=== PATIENT | female | born 1970 | race Caucasian/White ===

== ENCOUNTER 2017-09-11 08:29 | Inpatient (IN) | payer MEDICARE ==
[2017-09-11] MEDS ORDERED: SODIUM CHLORIDE 0.9% 1000 ML INFUS.BAG IV STA (09:05)
[2017-09-11] MEDS ORDERED: VANCOMYCIN 1 GM PREMIX - 1 GM/200 ML BAG IVPB ONE (09:07)
[2017-09-11] MEDS ORDERED: PIPERACILLIN/TAZOB 3.375 GM 3.375 GM in DEXTROSE 5%-WATER - 50 ML IVPB ONE ×2 (09:07→18:23)
[2017-09-11] MEDS ORDERED: ACETAMINOPHEN 325 MG TABLET (FP) PO ONE (09:25)
--- NOTE | 2017-09-11 09:25 | PDOC ---
Attending Attestation - HPI HPI: 09/11/17 09:27 The patient is a 47 year old female with a significant PMH of cocaine and heroin abuse, asthma, and diabetes who presents to the emergency department with abdominal pain beginning approximately today. She reports abdominal pain with associated nausea but denies vomiting. The patient states she has had a wound on her abdomen for a undefined period of time at her drug injection site, which has been draining yellowish fluid recently. The patient states she uses everyday. The patient also endorses fevers (T. max 102.9F at triage) and chills. She states her last BM was yesterday. The patient reports no known history of HIV or hepatitis. The patient denies chest pain or shortness of breath. Allergies: NKA PCP: None reported. - Physicial Exam PE: 09/11/17 09:27 GENERAL: Awake, alert, and fully oriented, in no acute distress HEAD: No signs of trauma EYES: PERRLA, EOMI, sclera anicteric, conjunctiva clear ENT: Auricles normal inspection, nares patent. Moist mucosa NECK: Normal ROM, supple, no JVD, or masses LUNGS: Breath sounds equal, clear to auscultation bilaterally. No wheezes, and no crackles HEART: Regular rate and rhythm, normal S1 and S2, no murmurs, rubs or gallops ABDOMEN: (+) 6x4 cm. abdominal wall abscess with central ulceration, fluctuant, erythematous, and exquisitely tender. Well-perfused. Rest of abdomen nontender. Soft, normoactive bowel sounds. No guarding, no rebound. No masses EXTREMITIES: Normal range of motion, no edema. No clubbing or cyanosis. No cords, erythema, or tenderness NEUROLOGICAL: Alert and oriented x 3. Moves all extremities. Face is symmetric. SKIN: See description of ulcer above. <Pancho Zaragoza - Last Filed: 09/11/17 09:45> - Resident Resident Name: Usman Doll - ED Attending Attestation I have performed the following: I have examined & evaluated the patient, The case was reviewed & discussed with the resident, I agree w/resident's findings & plan, Exceptions are as noted - Medical Decision Making 09/11/17 15:37 47 yo F h/o polysubstance abuse, daily cocaine use here with abd wall wound/. questoinable abscess, sepsis. differential sepsis, abscess vs cellulitis, vs. ulceration, intox. plan cbc lytes cultures, abx, ct/ a/p evaluate extent of the wound/ abcess. iv hydration. pt was a very poor historian, threatening to leave ama, was given ativan to deescalate when she becamse agitated. iv hydration 2 L, vanco / zosyn. bp normalized. cxr negative for infiltrate. HIV screen negative. ct no fluid collection. admitted to medicine for iv antiobiotics. <Em Blue - Last Filed: 09/11/17 15:40> Heart Score/ECG Review #1 ECG reviewed & interpreted by me at: 10:20 General ECG Interpretation: Sinus Rhythm, Normal Rate (89), Normal Intervals, No acute ischemic changes <Em Blue - Last Filed: 09/11/17 15:40>
[2017-09-11] MEDS ORDERED: ACETAMINOPHEN 1000 MG/100 ML VIAL (NON FORMULARY) IVPB ONE (09:28)
[2017-09-11 09:36] LABS: BASO % 0.2 % (0-2.0); EOS % 2.2 % (0-4.5); HEMATOCRIT 29.4 % (32.4-45.2); HEMOGLOBIN 9.9 GM/dL (10.7-15.3); LYMPH % 11.3 % (8-40); MCH 30.2 pg (25.7-33.7); MCHC 33.6 g/dl (32.0-36.0); MEAN CELL VOLUME 90.1 fl (80-96); MEAN PLT VOLUME 8.1 fl (7.5-11.1); MONO % 8.4 % (3.8-10.2); NEUT % 77.9 % (42.8-82.8); PLATELET COUNT 315 K/MM3 (134-434); RBC 3.27 M/mm3 (3.60-5.2); WHITE BLOOD COUNT 6.7 K/mm3 (4.0-10.0)
[2017-09-11] MEDS ORDERED: VANCOMYCIN 1 GRAM (PRE-DOCKED) 1,000 MG/250 ML BAG IVPB ONE (09:38)
[2017-09-11] MEDS ORDERED: ACETAMINOPHEN INJECTION 100 ML IVPB ONE (09:38)
[2017-09-11] MEDS ORDERED: PIPERACILLIN/TAZOB 3.375 GM 3.375 GM/50 ML BAG IVPB ONE ×2 (09:39→18:50)
[2017-09-11 09:52] LABS: INR 1.06 (0.82-1.09)
[2017-09-11 09:55] LABS: ACTIVATED PTT 31.6 SECONDS (26.9-34.4)
[2017-09-11 10:02] LABS: URINE APPEARANCE CLEAR; URINE BILIRUBIN NEGATIVE (<2.0 mg/dL); URINE COLOR STRAW; URINE GLUCOSE (UA) NEGATIVE (NEGATIVE); URINE KETONE NEGATIVE (NEGATIVE); URINE LEUK ESTERASE TRACE (NEGATIVE); URINE NITRITE NEGATIVE (NEGATIVE); URINE PROTEIN NEGATIVE (NEGATIVE); URINE UROBILINOGEN NEGATIVE mg/dL (0.2-1.0)
[2017-09-11 10:02] LABS: ANION GAP 7 (8-16); BLOOD UREA NITROGEN 7 mg/dL (7-18); CALCIUM 8.1 mg/dL (8.5-10.1); CHLORIDE 103 mmol/L (98-107); CO2 29 mmol/L (21-32); CREATININE 0.9 mg/dL (0.55-1.02); GLUCOSE,RANDOM 186 mg/dL (74-106); LIPASE 79 U/L (73-393); POTASSIUM 3.7 mmol/L (3.5-5.1); SGOT/AST 53 U/L (15-37); SGPT/ALT 31 U/L (12-78); SODIUM 139 mmol/L (136-145)
[2017-09-11 10:05] LABS: EPI CELLS RARE /HPF (FEW); URINE MUCUS RARE
[2017-09-11 10:06] LABS: ALK PHOS 63 U/L (45-117); BILIRUBIN,TOTAL 0.4 mg/dL (0.2-1.0); TOT PROT 7.9 g/dl (6.4-8.2)
--- NOTE | 2017-09-11 10:06 | PDOC ---
History of Present Illness - General Chief Complaint: Pain Stated Complaint: ABDOMINAL PAIN Time Seen by Provider: 09/11/17 09:00 History Source: Patient Exam Limitations: Clinical Condition - History of Present Illness Initial Comments: 09/11/17 09:57 Patient is a 47F with history of polysubstance abuse and asthma coming in today complaining of abdominal wound. Patient states that her wound is infected because she's been injecting cocaine into her abdomen. Endorses fevers, chills. Denies nausea, vomiting. Denies pain with urination. Last bowel movement was yesterday. Patient reports last use of drugs was yesterday and is every day user. Patient is unsure of when the wound first developed. Past History - Past Medical History Allergies/Adverse Reactions: Allergies Allergy/AdvReac Type Severity Reaction Status Date / Time No Known Allergies Allergy Verified 09/11/17 08:41 Home Medications: Ambulatory Orders Albuterol Sulfate Inhaler - [Ventolin HFA Inhaler -] 2 inh IH Q4H PRN #1 inh 08/04 metFORMIN HCL [Glucophage -] 500 mg PO BID #60 tablet 11/11/14 traZODone HCL [Desyrel -] 50 mg PO HS #30 tablet 12/05/14 Metformin HCl [Glucophage] 1,000 mg PO BID #60 tablet 12/09/14 Anemia: No Asthma: Yes (Pt is on MDI) Cancer: No Cardiac Disorders: No CVA: No COPD: No CHF: No Dementia: No Diabetes: Yes (Type II) GI Disorders: No Disorders: No HTN: No Hypercholesterolemia: No Kidney Stones: No Liver Disease: No Seizures: No Thyroid Disease: No - Reproductive History PID: No - Immunization History Immunization Up to Date: No - Suicide/Smoking/Psychosocial Hx Smoking Status: Yes Smoking History: Never smoked Have you smoked in the past 12 months: No Number of Cigarettes Smoked Daily: 1 'Breaking Loose' booklet given: 12/04/14 Hx Alcohol Use: No Drug/Substance Use Hx: Yes Substance Use Type: Cocaine, Opiates, Heroin Hx Substance Use Treatment: No Review of Systems - Review of Systems Comments:: 09/11/17 10:06 GENERAL/CONSTITUTIONAL: Positive for fever or chills. HEAD, EYES, EARS, NOSE AND THROAT: No change in vision. No sore throat. CARDIOVASCULAR: No chest pain or shortness of breath RESPIRATORY: No cough, wheezing, or hemoptysis. GASTROINTESTINAL: No nausea, vomiting, diarrhea or constipation. GENITOURINARY: No dysuria, frequency, or change in urination. MUSCULOSKELETAL: No joint or muscle swelling or pain. No neck or back pain. SKIN: No rash NEUROLOGIC: No headache, vertigo, loss of consciousness, or change in strength/ sensation. HEMATOLOGIC/LYMPHATIC: No anemia, easy bleeding, or history of blood clots. ALLERGIC/IMMUNOLOGIC: No hives or skin allergy. *Physical Exam - Vital Signs Last Vital Signs Temp Pulse Resp BP Pulse Ox 102.9 F H 119 H 20 94/55 97 09/11/17 08:37 09/11/17 08:37 09/11/17 08:37 09/11/17 08:37 09/11/17 08:37 - Physical Exam Comments: 09/11/17 10:08 GENERAL: Awake, alert, and fully oriented, disorganized speech HEAD: No signs of trauma, normocephalic, atraumatic EYES: PERRLA, EOMI, sclera anicteric, conjunctiva clear ENT: Auricles normal inspection, hearing grossly normal, nares patent, oropharynx clear without exudates. Moist mucosa NECK: Normal ROM, supple, no lymphadenopathy, JVD, or masses LUNGS: No distress, speaks full sentences, clear to auscultation bilaterally HEART: Tachycardic, normal S1 and S2, no murmurs, rubs or gallops, peripheral pulses normal and equal bilaterally. ABDOMEN: Diffusely tender, 3x3cm area of ulceration with surrounding erythema and induration heading superiorly EXTREMITIES: Normal inspection, Normal range of motion, no edema. No clubbing or cyanosis. NEUROLOGICAL: Cranial nerves II through XII grossly intact. Normal speech, normal gait, no focal sensorimotor deficits SKIN: Warm, Dry, multiple wounds in various stages of healing along venous access points ED Treatment Course - LABORATORY CBC & Chemistry Diagram: 09/11/17 09:32 09/11/17 09:32 - ADDITIONAL ORDERS Additional order review: Laboratory Results 09/11/17 09/11/17 09:32 09:23 Troponin I Cancelled Lipase Cancelled 09/11/17 09:32 RBC 3.27 L D MCV 90.1 MCHC 33.6 RDW 13.0 MPV 8.1 D Neutrophils % 77.9 Lymphocytes % 11.3 Monocytes % 8.4 Eosinophils % 2.2 Basophils % 0.2 - RADIOLOGY Radiology Studies Ordered: Category Date Time Status ABDOMEN & PELVIS CT WITH CONTR [CT] Stat CT Scan 09/11/17 09:08 Ordered CHEST X-RAY PORTABLE* [RAD] Stat Radiology 09/11/17 09:05 Completed - Medications Given in the ED: ED Medications Discontinued Medications Generic Name Dose Route Start Last Admin Trade Name Frejanet PRN Reason Stop Dose Admin Acetaminophen 650 mg 09/11/17 09:25 09/11/17 09:41 Tylenol - PO 09/11/17 09:26 Not Given ONCE ONE Acetaminophen 1,000 mg 09/11/17 09:28 09/11/17 09:40 Ofirmev Injection - IVPB 09/11/17 09:29 1,000 mg ONCE ONE Administration Piperacillin Sod/Tazobactam 50 mls @ 100 mls/hr 09/11/17 09:07 09/11/17 09:40 Sod 3.375 gm/ Dextrose IVPB 09/11/17 09:36 100 mls/hr ONCE ONE Administration Protocol Sodium Chloride 1,973 ml 09/11/17 09:05 09/11/17 09:40 Normal Saline - 30 ml/kg (1973 ml) 09/11/17 09:06 1,973 ml IV Administration ONCE STA Medical Decision Making - Medical Decision Making 09/11/17 10:34 Patient is 47F with history of polysubstance abuse and asthma here today complaining of abdominal wound. Vital signs show tachycardia and fever. BP shows MAP of 66. Septic workup initiated. Full 30cc/kg bolus of NS ordered. Two IVs placed. Vanc/zosyn initiated. Will do CT abd/pelvis. 09/11/17 10:37 Laboratory Tests 09/11/17 09/11/17 09/11/17 09:32 09:32 09:32 WBC 6.7 Hgb 9.9 L D Plt Count 315 INR 1.06 BUN 7 Creatinine 0.9 Lactic Acid Troponin I < 0.02 Serum , Qual Urine Nitrite Ur Leukocyte Esterase Urine WBC (Auto) Urine RBC (Auto) HIV 1&2 Antibody Screen HIV P24 Antigen 09/11/17 09/11/17 09/11/17 09:32 09:32 09:32 WBC Hgb Plt Count INR BUN Creatinine Lactic Acid 2.3 H* Troponin I Serum , Qual Negative Urine Nitrite Ur Leukocyte Esterase Urine WBC (Auto) Urine RBC (Auto) HIV 1&2 Antibody Screen Negative HIV P24 Antigen Negative 09/11/17 09:48 WBC Hgb Plt Count INR BUN Creatinine Lactic Acid Troponin I Serum , Qual Urine Nitrite Negative Ur Leukocyte Esterase Trace Urine WBC (Auto) 1 Urine RBC (Auto) <1 HIV 1&2 Antibody Screen HIV P24 Antigen CBC shows anemia and no leukocytosis. INR, CMP reassuring. Lactate elevated to 2.3. UA clear, Upreg negative. HIV negative. Pending utox and CT abd/pelvis. Patient reassessed, HR now 89 with MAP of 81. Patient not in septic shock, is in severe sepsis. Second lactate pending. 09/11/17 11:42 BP reassessed, 93/71 with MAP of 80. No tachycardia. Fluids still running in. ABx given. 09/11/17 11:49 Patient becoming more agitated and stating that she wants to go home. Patient states that she doesn't care if she dies and has no plan to leave. Given 1mg ativan. Vital signs remain stable. 09/11/17 11:52 CT scan shows extensive inflammation in anterior abdominal wall but no discrete fluid collection. Hospitalist paged for admission. *DC/Admit/Observation/Transfer Diagnosis at time of Disposition: Cellulitis - Discharge Dispostion Condition at time of disposition: Stable Decision to Admit order: Yes - Referrals - Patient Instructions - Post Discharge Activity
[2017-09-11 10:13] LABS: METHADONE, UR NEGATIVE ng/ml (CUTOFF=300); OPIATES, URI NEGATIVE ng/ml (CUTOFF=300); PHENCYCLIDINE,URINE NEGATIVE ng/ml (CUTOFF=25); URINE AMPHETAMINES NEGATIVE ng/ml (CUTOFF=500); URINE BARBITURATES NEGATIVE ng/ml (CUTOFF=200); URINE BENZODIAZEPINES NEGATIVE ng/ml (CUTOFF=200)
[2017-09-11 10:51] LABS: COCAINE, UR POSITIVE ng/ml (CUTOFF=300)
--- NOTE | 2017-09-11 13:45 | HP ---
CHIEF COMPLAINT: PCP: HISTORY OF PRESENT ILLNESS: The patient is a 44 year old female with a PMH of cocaine and heroin abuse, asthma and DM that presented today complaining of abdominal pain. When I saw the patient she was lethargic because of Ativan that was given to her for agitation in emergency room. She was not able to answer most of my questions and kept falling asleep. History is mainly taken from medical records. The patient presented today complaining of abdominal pain, nausea and fever 103 F. She also added that she has abdominal abscess in her abdomen where she injects cocaine. The patient doesn't know how long she has the ulcer on her abdomen. She uses cocaine everyday. She has normal bowel movements, last one yesterday. She also added that she doesn't take any medications and doesn't have PCP. ER course was notable for: (1)CBC CMP (2)CT abdomen (3)CXR, UA, U tox, HIV screen neg PAST MEDICAL HISTORY: as above PAST SURGICAL HISTORY: N/A Social History: Smoking:denies Alcohol:denies Drugs: cocaine Family History: N/A Allergies No Known Allergies Allergy (Verified 09/11/17 08:41) HOME MEDICATIONS: Home Medications Medication Instructions Recorded Albuterol Sulfate Inhaler - 2 inh IH Q4H PRN #1 inh 12/08/11 [Ventolin HFA Inhaler -] metFORMIN HCL [Glucophage -] 500 mg PO BID #60 tablet 11/11/14 traZODone HCL [Desyrel -] 50 mg PO HS #30 tablet 12/05/14 Metformin HCl [Glucophage] 1,000 mg PO BID #60 tablet 12/09/14 REVIEW OF SYSTEMS: The patient is doesn't have any complaints. PHYSICAL EXAMINATION Vital Signs - 24 hr 09/11/17 09/11/17 09/11/17 08:37 10:38 12:30 Temperature 102.9 F H 98.5 F Pulse Rate 119 H Pulse Rate [ 86 77 Left Apical] Respiratory 20 16 18 Rate Blood Pressure 94/55 Blood Pressure 85/53 112/84 [Left Arm] O2 Sat by Pulse 97 95 95 Oximetry (%) GENERAL: Awake, alert, and fully oriented, in no acute distress. HEAD: Normal with no signs of trauma. EYES: Pupils equal, round and reactive to light, EOMI. EARS, NOSE, THROAT: oropharynx clear without exudates. Moist mucous membranes. NECK: Normal range of motion, supple without lymphadenopathy, JVD, or masses. LUNGS: Clear to auscultation bilaterally. No wheezes, and no crackles. HEART: Regular rate and rhythm, normal S1 and S2 without murmur, rub or gallop. ABDOMEN: Soft, nontender, not distended, normoactive bowel sounds, no guarding, no rebound, warm to touch on left side, redness, 2 cm open wound, stage 3 ulcer located in LUQ draining small amount of clear/yellow fluid, edema present, another one below around 0.5 cm, open not draining fluid, no fluctuation. MUSCULOSKELETAL: Normal range of motion at all joints. No bony deformities or tenderness. UPPER EXTREMITIES: No peripheral edema. LOWER EXTREMITIES: No peripheral edema. NEUROLOGICAL: Lethargic, answering some questions, poor eye contact Laboratory Results - last 24 hr 09/11/17 09/11/17 09/11/17 09:23 09:23 09:32 WBC 6.7 RBC 3.27 L D Hgb 9.9 L D Hct 29.4 L D MCV 90.1 MCH 30.2 MCHC 33.6 RDW 13.0 Plt Count 315 MPV 8.1 D Neutrophils % 77.9 Lymphocytes % 11.3 Monocytes % 8.4 Eosinophils % 2.2 Basophils % 0.2 PT with INR INR PTT (Actin FS) Sodium Potassium Chloride Carbon Dioxide Anion Gap BUN Creatinine Creat Clearance w eGFR Random Glucose Lactic Acid Calcium Total Bilirubin AST ALT Alkaline Phosphatase Troponin I Cancelled Total Protein Albumin Lipase Serum , Qual Urine Color Urine Appearance Urine pH Ur Specific [place] Urine Protein Urine Glucose (UA) Urine Ketones Urine Blood Urine Nitrite Urine Bilirubin Urine Urobilinogen Ur Leukocyte Esterase Urine WBC (Auto) Urine RBC (Auto) Ur Epithelial Cells Urine Mucus Opiates Screen Methadone Screen Barbiturate Screen Phencyclidine Screen Ur Amphetamines Screen MDMA (Ecstasy) Screen Benzodiazepines Screen Cocaine Screen U Marijuana (THC) Screen HIV 1&2 Antibody Screen HIV P24 Antigen Blood Type A POSITIVE Antibody Screen Negative 09/11/17 09/11/17 09/11/17 09:32 09:32 09:32 WBC RBC Hgb Hct MCV MCH MCHC RDW Plt Count MPV Neutrophils % Lymphocytes % Monocytes % Eosinophils % Basophils % PT with INR 12.00 INR 1.06 PTT (Actin FS) 31.6 Sodium 139 Potassium 3.7 Chloride 103 Carbon Dioxide 29 Anion Gap 7 L BUN 7 Creatinine 0.9 Creat Clearance w eGFR > 60 Random Glucose 186 H Lactic Acid 2.3 H* Calcium 8.1 L Total Bilirubin 0.4 AST 53 H ALT 31 Alkaline Phosphatase 63 Troponin I < 0.02 Total Protein 7.9 Albumin 3.0 L Lipase 79 Serum , Qual Urine Color Urine Appearance Urine pH Ur Specific [place] Urine Protein Urine Glucose (UA) Urine Ketones Urine Blood Urine Nitrite Urine Bilirubin Urine Urobilinogen Ur Leukocyte Esterase Urine WBC (Auto) Urine RBC (Auto) Ur Epithelial Cells Urine Mucus Opiates Screen Methadone Screen Barbiturate Screen Phencyclidine Screen Ur Amphetamines Screen MDMA (Ecstasy) Screen Benzodiazepines Screen Cocaine Screen U Marijuana (THC) Screen HIV 1&2 Antibody Screen HIV P24 Antigen Blood Type Antibody Screen 09/11/17 09/11/17 09/11/17 09:32 09:32 09:32 WBC RBC Hgb Hct MCV MCH MCHC RDW Plt Count MPV Neutrophils % Lymphocytes % Monocytes % Eosinophils % Basophils % PT with INR INR PTT (Actin FS) Sodium Potassium Chloride Carbon Dioxide Anion Gap BUN Creatinine Creat Clearance w eGFR Random Glucose Lactic Acid Calcium Total Bilirubin AST ALT Alkaline Phosphatase Troponin I Total Protein Albumin Lipase Cancelled Serum , Qual Negative Urine Color Urine Appearance Urine pH Ur Specific [place] Urine Protein Urine Glucose (UA) Urine Ketones Urine Blood Urine Nitrite Urine Bilirubin Urine Urobilinogen Ur Leukocyte Esterase Urine WBC (Auto) Urine RBC (Auto) Ur Epithelial Cells Urine Mucus Opiates Screen Methadone Screen Barbiturate Screen Phencyclidine Screen Ur Amphetamines Screen MDMA (Ecstasy) Screen Benzodiazepines Screen Cocaine Screen U Marijuana (THC) Screen HIV 1&2 Antibody Screen Negative HIV P24 Antigen Negative Blood Type Antibody Screen 09/11/17 09/11/17 09/11/17 09:48 09:53 12:15 WBC RBC Hgb Hct MCV MCH MCHC RDW Plt Count MPV Neutrophils % Lymphocytes % Monocytes % Eosinophils % Basophils % PT with INR INR PTT (Actin FS) Sodium Potassium Chloride Carbon Dioxide Anion Gap BUN Creatinine Creat Clearance w eGFR Random Glucose Lactic Acid 0.8 Calcium Total Bilirubin AST ALT Alkaline Phosphatase Troponin I Total Protein Albumin Lipase Serum , Qual Urine Color Straw Urine Appearance Clear Urine pH 5.0 Ur Specific [place] 1.002 Urine Protein Negative Urine Glucose (UA) Negative Urine Ketones Negative Urine Blood Negative Urine Nitrite Negative Urine Bilirubin Negative Urine Urobilinogen Negative Ur Leukocyte Esterase Trace Urine WBC (Auto) 1 Urine RBC (Auto) <1 Ur Epithelial Cells Rare Urine Mucus Rare Opiates Screen Negative Methadone Screen Negative Barbiturate Screen Negative Phencyclidine Screen Negative Ur Amphetamines Screen Negative MDMA (Ecstasy) Screen Negative Benzodiazepines Screen Negative Cocaine Screen Positive U Marijuana (THC) Screen Negative HIV 1&2 Antibody Screen HIV P24 Antigen Blood Type Antibody Screen CT abdomen;In the soft tissues of the anterior lateral abdomen extending from the left upper quadrant to the left lower quadrant at the levels of the surgical wound site there is skin thickening, edematous changes with interfascial fluid but no discrete or drainable fluid collection. These findings suggestive of extensive cellulitis. With subcutaneous edema and inflammatory change ASSESSMENT/PLAN: The patient is a 44 year old female with a PMH of cocaine and heroin abuse, asthma and DM that presented today complaining of abdominal pain. She is admitted for cellulitis. Sepsis due to cellulitis and abdominal wound: -the patient has a history of wound that is present of unknown time, possibly due to IV drug injections -she presented today with fever 102.9 F, elevated LA to 2.3, tachycardia -CT abdomen doesnt reveal abscess, no fluid collection that can be drained, suggestive of cellulitis -Vanco and Zosyn were given in ED, will continue the dsame antibiotics, cont. NS at 100 cc/hr -ID consulted, will follow up recommendations -wound culture not recommended ny surgery, likely not useful -blood cultures ordered -Surgery consulted Dr Velasco AMS: -the patient has a history of polysubstance abuse and on admission was agitated. She was given Ativan 1 mg. -we will monitor her vital signs closely on telemetry Asthma: -no wheezing -no treatment needed DM: -will order BGMs ACHS and ISS ACHS -will check HgA1C History of psych disorder and polysubstance abuse: -Psychiatry consulted -recommended to observe for eloping -given Ativan for agitation in ED -Utox pos for cocaine Anemia: -Hg 9.9 -will f/u iron studies and FOBT DVT PPX: Heparin sq F/E/N: NS/no changes/Diabetic/NPO after midnight for possible debridement on Tuesday Dispo: tele Problem List - Problem (1) Cellulitis Code(s): L03.90 - CELLULITIS, UNSPECIFIED (2) Asthma Code(s): J45.909 - UNSPECIFIED ASTHMA, UNCOMPLICATED (3) Cocaine abuse Code(s): F14.10 - COCAINE ABUSE, UNCOMPLICATED (4) Cocaine dependence Code(s): F14.20 - COCAINE DEPENDENCE, UNCOMPLICATED (5) Diabetes mellitus Code(s): E11.9 - TYPE 2 DIABETES MELLITUS WITHOUT COMPLICATIONS (6) Diabetes mellitus type 2 in obese Code(s): E11.9 - TYPE 2 DIABETES MELLITUS WITHOUT COMPLICATIONS; E66.9 - OBESITY , UNSPECIFIED (7) Drug-induced mood disorder Code(s): F19.94 - OTH PSYCHOACTIVE SUBSTANCE USE, UNSP W MOOD DISORDER (8) Heroin dependence Code(s): F11.20 - OPIOID DEPENDENCE, UNCOMPLICATED Visit type - Emergency Visit Emergency Visit: Yes ED Registration Date: 09/11/17 Care time: The patient presented to the Emergency Department on the above date and was hospitalized for further evaluation of their emergent condition. - New Patient This patient is new to me today: Yes Date on this admission: 09/11/17 - Critical Care Critical Care patient: No Hospitalist Screening - Colonoscopy Questionnaire Colonoscopy Questionnaire: Colonoscopy Questionnaire - Patient: 50 - 75 years old and never had a screening colonoscopy: Unknown History of colon or rectal polyps, or CA: Unknown History of IBD, Crohn's disease or UC: Unknown History of abdominal radiation therapy as a child: Unknown - Relative: 1 with colon or rectal CA, or polyps at age 60 or younger: Unknown Colon or rectal CA diagnosed at age 45 or younger: Unknown Multiple relatives with colon or rectal CA: Unknown - Outcome: Screening Result: Negative Screen
[2017-09-11] MEDS: HEPARIN NA (PORCINE) 5,000 UNITS/ML 1ML VIAL SQ SCH ×2 (14:08→23:03)
[2017-09-11] MEDS: SODIUM CHLORIDE 1,000 ML IV SCH (14:49)
--- NOTE | 2017-09-11 14:51 | PN ---
Teaching Attending Note Name of Resident: Kiera To ATTENDING PHYSICIAN STATEMENT I saw and evaluated the patient. I reviewed the resident's note and discussed the case with the resident. I agree with the resident's findings and plan as documented. SUBJECTIVE: OBJECTIVE: ASSESSMENT AND PLAN: 47 y/o female patient with a history of polysubstance abuse presented to the hospital after the patient noticed she has some purulent material draining for her left side of the abdomen. patient stated that she injected herself with some cocaine 2 to 3 days ago. she usually does that from time to time, she also has another smaller size bellow about 0.5cm. patient does not want to engage in a conversation and was trying to avoid the questions, she does not look the doctor in the eye. she was more fixated on eating her cake. she is a poor historian and according to the ER resident she was agitated and was going to elope but she was given 1 mg of lorazepam to calm down. During the interview the patient fell asleep. she stated she does use alcohol but does not recall when she used it last, she denied using heroin, stated only cocaine, she does not recall when was her last HIV testing done. plan: admit the patient start on broad spectrum antibiotics - Vancomycin and pipercillin/tazobactam ID consult surgery consult for wound debridement elopement precautions psychiatric evaluation for the patient HIV counseling and possible testing when the patient is more alert and oriented not on lorazepam blood culture if the patient is febrile wound culture IVF repeat Lactic acid tele for AMS
--- NOTE | 2017-09-11 15:25 | CONSULT ---
Consult Consult Specialty:: General Surgery Referred by:: Connie To Reason for Consultation:: LUQ abdominal wall cellulitis, abscess? - History of Present Illness Chief Complaint: LUQ abdominal wall drainage and pain History of Present Illness: 47yo diabetic F, daily cocaine user, presented to ER with drainage from ulcer on LUQ abdominal wall for at least a couple of days. She had injected cocaine into her abdominal wall, cannot say exactly how long ago, and developed a sore that progressed and started to drain. In the ER, she was febrile to 102.9, tachycardic 119, with BP 94/55, wbc 6.7, glucose 186, normal renal function. Lactate dropped from 2.3 to 0.8 with hydration and HR improved. BP has remained 90s/60s-70. CT was done showing subcutaneous edema and cellulitis with interfascial fluid but no drainable fluid collection under the ulcer. She was reportedly agitated and wanting to leave the hospital, was given food and a small dose of Ativan. She calmed down and was admitted to the hospitalist service. She has gotten Vanco and Zosyn. Surgery was consulted to evaluate for possible debridement. On first encounter with patient, she is sleepy and did not respond at first to questions. She is arousable enough to then answer simple questions, but at times is unintelligible, and tends to fall asleep again in the middle of her sentences. She had bread with crumbs and cold cut on the stretcher next to her, but fell asleep holding a piece, which fell to the floor. Per the ER, she was brought [employer] by a visitor earlier. She is a poor historian, but admits to daily cocaine use and 1 cigarette a day. Denies alcohol use or other illicit substances. She states she got the sore from a needle and confirmed injecting cocaine there, but doesn't remember when. She cannot stay awake for a conversation. Repeat vitals were 99/68, pulse 63, sat 94% RA. - History Source History Provided By: Patient, Medical Record Limitations to Obtaining History: Other (poor historian, partly sedated) - Past Medical History ...LMP: 10/14/14 Psych: Yes: Addictions (cocaine) Endocrine: Yes: Diabetes Mellitus - Past Surgical History Additional Surgical History: unknown - pt cannot answer - Alcohol/Substance Use Hx Alcohol Use: No (denies) History of Substance Use: reports: Cocaine (daily use, injects, cannot give details) - Smoking History Smoking history: Current every day smoker Have you smoked in the past 12 months: Yes Aproximately how many cigarettes per day: 1 Home Medications - Allergies Allergies/Adverse Reactions: Allergies Allergy/AdvReac Type Severity Reaction Status Date / Time No Known Allergies Allergy Verified 09/11/17 08:41 - Home Medications Home Medications: Ambulatory Orders Albuterol Sulfate Inhaler - [Ventolin HFA Inhaler -] 2 inh IH Q4H PRN #1 inh 08/04 metFORMIN HCL [Glucophage -] 500 mg PO BID #60 tablet 11/11/14 traZODone HCL [Desyrel -] 50 mg PO HS #30 tablet 12/05/14 Metformin HCl [Glucophage] 1,000 mg PO BID #60 tablet 12/09/14 Home Medications (free text): pt does not answer when asked about home meds - unclear if taking Family Disease History - Family Disease History Family History: Unable to Obtain (from chart, not patient) Family Disease History: Diabetes: Father, CA: Father, Mother () Review of Systems Unable to obtain ROS, reason: patient cannot stay awake - Review of Systems Gastrointestinal: denies: Nausea, Vomiting Integumentary: reports: Lesions, Wound (LUQ, draining, with hpi) Physical Exam Vital Signs: Vital Signs Temperature 98.5 F 09/11/17 12:30 Pulse Rate 77 09/11/17 12:30 Respiratory Rate 18 09/11/17 12:30 Blood Pressure 112/84 09/11/17 12:30 O2 Sat by Pulse Oximetry (%) 95 09/11/17 12:30 Constitutional: Yes: Well Nourished, No Distress, Calm, Other (lethargic, sleepy ) Eyes: Yes: Conjunctiva Clear, EOM Intact HENT: Yes: Atraumatic, Normocephalic Neck: Yes: Supple, Trachea Midline Cardiovascular: Yes: Regular Rate and Rhythm. No: Murmur Respiratory: Yes: Regular, CTA Bilaterally Gastrointestinal: Yes: Normal Bowel Sounds, Soft, Tenderness (at LUQ lesion only ), Other (ulcerated wound on LUQ abd wall, very small superficial ulcer inferior to it). No: Distention ...Rectal Exam: Yes: Deferred Extremities: Yes: Other (multiple small healing scabs/scars from previous injection sites, including bilateral antecubitals). No: Cool, Cyanosis Edema: No Peripheral Pulses WNL: Yes Integumentary: Yes: Other (LUQ abd wall ulcers) Wound/Incision: Yes: Open to air, Draining (pale mensah exudate, nothing expressible), Other (LUQ raised, cratered ulcer ~3x2cm x ~1cm deep, pink granulating base with mensah/purulent appearing exudate but no expressible drainage , inferior aspect with patch of necrotic dark adherent slough; indurated locally and just surrounding, and tender -- dressed with 2x2 then 4x4 gauze and tape; very small superficial ulcer inferiorly, ~1 x 0.5cm with pale yellow base , covered with band-aid -- removed, dressed with gauze and tape (no drainage, no focal underlying skin changes)). No: Reddened, Bleeding Neurological: Yes: Lethargy. No: Alert (arousable but falls right back to sleep ), Unresponsive (answers some questions when awake enough to do so) Psychiatric: No: Alert (sleepy), Agitated Labs: CBC, BMP 09/11/17 09:32 09/11/17 09:32 CMP Sodium 139 mmol/L (136-145) 09/11/17 09:32 Potassium 3.7 mmol/L (3.5-5.1) 09/11/17 09:32 Chloride 103 mmol/L (98-107) 09/11/17 09:32 Carbon Dioxide 29 mmol/L (21-32) 09/11/17 09:32 Anion Gap 7 (8-16) L 09/11/17 09:32 BUN 7 mg/dL (7-18) 09/11/17 09:32 Creatinine 0.9 mg/dL (0.55-1.02) 09/11/17 09:32 Creat Clearance w eGFR > 60 (>60) 09/11/17 09:32 Random Glucose 186 mg/dL (74-106) H 09/11/17 09:32 Lactic Acid 0.8 mmol/L (0.0-2.0) 09/11/17 12:15 Calcium 8.1 mg/dL (8.5-10.1) L 09/11/17 09:32 Total Bilirubin 0.4 mg/dL (0.2-1.0) 09/11/17 09:32 AST 53 U/L (15-37) H 09/11/17 09:32 ALT 31 U/L (12-78) 09/11/17 09:32 Alkaline Phosphatase 63 U/L (45-117) 09/11/17 09:32 Troponin I < 0.02 ng/ml (0.00-0.05) 09/11/17 09:32 Total Protein 7.9 g/dl (6.4-8.2) 09/11/17 09:32 Albumin 3.0 g/dl (3.4-5.0) L 09/11/17 09:32 Lipase 79 U/L (73-393) 09/11/17 09:32 Serum , Qual Negative 09/11/17 09:32 INR, PTT INR 1.06 (0.82-1.09) 09/11/17 09:32 Urine Test Results Urine Color Straw 09/11/17 09:48 Urine Appearance Clear 09/11/17 09:48 Urine pH 5.0 (5.0-8.0) 09/11/17 09:48 Ur Specific [place] 1.002 (1.001-1.035) 09/11/17 09:48 Urine Protein Negative (NEGATIVE) 09/11/17 09:48 Urine Glucose (UA) Negative (NEGATIVE) 09/11/17 09:48 Urine Ketones Negative (NEGATIVE) 09/11/17 09:48 Urine Blood Negative (NEGATIVE) 09/11/17 09:48 Urine Nitrite Negative (NEGATIVE) 09/11/17 09:48 Urine Bilirubin Negative (<2.0 mg/dL) 09/11/17 09:48 Ur Leukocyte Esterase Trace (NEGATIVE) 09/11/17 09:48 Ur Epithelial Cells Rare /HPF (FEW) 09/11/17 09:48 Urine Mucus Rare 09/11/17 09:48 U Tox + for cocaine only Imaging - Results Cat Scan: Report Reviewed, Image Reviewed (images personally reviewed, ulcer at LUQ abd wall with underlying edema and cellulitic changes, no clear fluid collection) Problem List - Problems (1) Ulcer of abdomen wall with fat layer exposed Assessment/Plan: LUQ abd wall ulceration secondary to cocaine injection with significant cellulitis underlying in diabetic patient agree with blood cultures and broad-spectrum IV antibiotics with MRSA coverage, ID consulted would not culture wound surface - will be contaminated dressed with gauze and tape for now would likely recommend daily Santyl (collagenase) dressings with gauze pt currently too sleepy to fully interact with or consent to anything will reevaluate tomorrow for need for local debridement vs dressings only admitted to hospitalist service Code(s): L98.492 - NON-PRS CHRONIC ULCER OF SKIN OF SITES W FAT LAYER EXPOSED (2) Cellulitis of abdominal wall Assessment/Plan: continue antibiotics - see above Code(s): L03.311 - CELLULITIS OF ABDOMINAL WALL (3) Diabetes mellitus with skin complication, without long-term current use of insulin Assessment/Plan: FS with SSI coverage, unclear if patient is taking home medication or not hold metformin [address] done with IV contrast Code(s): E11.628 - TYPE 2 DIABETES MELLITUS WITH OTHER SKIN COMPLICATIONS Qualifiers: Diabetes mellitus type: type 2 Diabetes mellitus complication detail: with other skin complication Qualified Code(s): E11.628 - Type 2 diabetes mellitus with other skin complications (4) Cocaine abuse with intoxication with complication Assessment/Plan: psych/detox to see avoid narcotics as able Code(s): F14.129 - COCAINE ABUSE WITH INTOXICATION, UNSPECIFIED
[2017-09-11] MEDS ORDERED: ACETAMINOPHEN 325 MG TABLET (FP) PO PRN (18:21)
[2017-09-11] MEDS ORDERED: VANCOMYCIN 1,000 MG in DEXTROSE 5%-WATER - 250 ML IVPB ONE (22:00)
[2017-09-12] MEDS ORDERED: DEXTROSE 5%-WATER - 50 ML IVPB ONE (03:14)
[2017-09-12] MEDS ORDERED: PIPERACILLIN/TAZOBACTAM 3.375 GM VIAL IVPB ONE (03:14)
[2017-09-12] MEDS: PIPERACILLIN/TAZOB 3.375 GM 3.375 GM in DEXTROSE 5%-WATER - 50 ML IVPB SCH ×2 (03:30→10:00)
[2017-09-12 03:38] VITALS: BMI 25.4
[2017-09-12] MEDS: SODIUM CHLORIDE 1,000 ML IV SCH ×2 (06:27→15:00)
[2017-09-12 07:11] LABS: CHLORIDE 109 mmol/L (98-107); POTASSIUM 3.7 mmol/L (3.5-5.1); SODIUM 142 mmol/L (136-145)
[2017-09-12 07:21] LABS: ALBUMIN 2.5 g/dl (3.4-5.0); ALK PHOS 51 U/L (45-117); ANION GAP 5 (8-16); BILIRUBIN,TOTAL 0.5 mg/dL (0.2-1.0); BLOOD UREA NITROGEN 8 mg/dL (7-18); CALCIUM 7.8 mg/dL (8.5-10.1); CO2 28 mmol/L (21-32); CREATININE 0.6 mg/dL (0.55-1.02); GLUCOSE,RANDOM 83 mg/dL (74-106); SGOT/AST 41 U/L (15-37); SGPT/ALT 26 U/L (12-78); TOT PROT 6.9 g/dl (6.4-8.2)
[2017-09-12 07:22] LABS: BASO % 0.5 % (0-2.0); HEMATOCRIT 30.3 % (32.4-45.2); LYMPH % 47.2 % (8-40); MCH 30.2 pg (25.7-33.7); MCHC 33.1 g/dl (32.0-36.0); MEAN CELL VOLUME 91.3 fl (80-96); MEAN PLT VOLUME 8.6 fl (7.5-11.1); NEUT % 33.3 % (42.8-82.8); PLATELET COUNT 281 K/MM3 (134-434); RBC 3.32 M/mm3 (3.60-5.2); RDW 13.4 % (11.6-15.6); WHITE BLOOD COUNT 4.8 K/mm3 (4.0-10.0)
--- NOTE | 2017-09-12 08:44 | CON.ID ---
Consult Consult Specialty:: infectious disease Referred by:: hospitalist Reason for Consultation:: fever - History of Present Illness Chief Complaint: fever, abdominal pain History of Present Illness: POOR HISTORIAN active IVDU not willling to talk to me history from chart abdominal wound of unclear duration, to me denies injecting there- to the ED staff, stated this was injection site fevers- unclear how long is hungry and wants to eat utox +cocaine ct scan abd/pelvis skin thickening LUQ- no abscess noted cultures sent started on vancomycin and zosyn - History Source History Provided By: Medical Record Limitations to Obtaining History: Uncooperative - Past Medical History ...LMP: 10/14/14 ...: No Psych: Yes: Addictions (cocaine) Endocrine: Yes: Diabetes Mellitus - Past Surgical History Additional Surgical History: unknown - pt cannot answer - Alcohol/Substance Use Hx Alcohol Use: No (denies) History of Substance Use: reports: Cocaine (daily use, injects, cannot give details) - Smoking History Smoking history: Current every day smoker Have you smoked in the past 12 months: Yes Aproximately how many cigarettes per day: 1 - Social History Usual Living Arrangement: Alone ADL: Independent Home Medications - Allergies Allergies/Adverse Reactions: Allergies Allergy/AdvReac Type Severity Reaction Status Date / Time No Known Allergies Allergy Verified 09/11/17 08:41 - Home Medications Home Medications: Ambulatory Orders Albuterol Sulfate Inhaler - [Ventolin HFA Inhaler -] 2 inh IH Q4H PRN #1 inh 08/04 metFORMIN HCL [Glucophage -] 500 mg PO BID #60 tablet 11/11/14 traZODone HCL [Desyrel -] 50 mg PO HS #30 tablet 12/05/14 Metformin HCl [Glucophage] 1,000 mg PO BID #60 tablet 12/09/14 Family Disease History - Family Disease History Family Disease History: Diabetes: Father, CA: Father, Mother () Review of Systems Unable to obtain ROS, reason: uncooperative - Review of Systems Constitutional: reports: Fever Physical Exam Vital Signs: Vital Signs Temperature 97.9 F 09/12/17 05:15 Pulse Rate 72 09/12/17 05:15 Respiratory Rate 20 09/12/17 05:15 Blood Pressure 110/77 09/12/17 05:15 O2 Sat by Pulse Oximetry (%) 95 09/11/17 21:00 Constitutional: Yes: Well Nourished, No Distress, Calm, Other (sleeping, wakes up to say she is hungry and wants to eat) Eyes: Yes: Conjunctiva Clear HENT: Yes: WNL, Atraumatic, Normocephalic. No: Thrush Neck: Yes: WNL, Supple Cardiovascular: Yes: Regular Rate and Rhythm, Murmur (2/6 edwin) Respiratory: Yes: Regular, CTA Bilaterally Gastrointestinal: Yes: Normal Bowel Sounds, Soft, Other (3 by 2 cm ulcer with serous drainage, no fluctuance small .5 cm ulcer below the larger one) ...Rectal Exam: Yes: Deferred Extremities: Yes: WNL Edema: No Integumentary: Yes: Other (multiple scars both arms) Labs: CBC, BMP 09/12/17 06:25 09/12/17 06:25 blood cultures/wound culture pending Imaging - Results Chest X-ray: Report Reviewed, Image Reviewed Cat Scan: Report Reviewed Problem List - Problems (1) Fever Code(s): R50.9 - FEVER, UNSPECIFIED (2) Cellulitis of abdominal wall Code(s): L03.311 - CELLULITIS OF ABDOMINAL WALL (3) Diabetes mellitus with skin complication, without long-term current use of insulin Code(s): E11.628 - TYPE 2 DIABETES MELLITUS WITH OTHER SKIN COMPLICATIONS Qualifiers: Diabetes mellitus type: type 2 Diabetes mellitus complication detail: with other skin complication Qualified Code(s): E11.628 - Type 2 diabetes mellitus with other skin complications (4) Substance use disorder Code(s): F19.90 - OTHER PSYCHOACTIVE SUBSTANCE USE, UNSPECIFIED, UNCOMPLICATED Assessment/Plan fever soft tissue infection diabetes IVDU +hep c ab cultures as ordered vancomycin/zosyn to continue concern for endocarditis f/u blood cultures HIV negative further reccd to follow should have hep c f/u as outpt
[2017-09-12] MEDS: HEPARIN NA (PORCINE) 5,000 UNITS/ML 1ML VIAL SQ SCH ×2 (10:00→21:33)
[2017-09-12] MEDS ORDERED: PIPERACILLIN/TAZOBACTAM 4.5 GM VIAL IVPB ONE ×2 (10:40→17:23)
[2017-09-12] MEDS ORDERED: DEXTROSE 5%-WATER 100 ML IVPB ONE ×2 (10:40→17:23)
[2017-09-12] MEDS: VANCOMYCIN 1 GM PREMIX - 1 GM/200 ML BAG IVPB SCH ×2 (10:42→21:30)
--- NOTE | 2017-09-12 10:53 | CON.PSY ---
Psychiatry Consult Chief Complaint: I( am ok, have no problems. I have stomach pain and I am hungry. Symptoms: reports: Irritability, Inability to Control Temper - Previous Psychiatric Treatment Outpatient: None Inpatient: None - Previous Substance Abuse Treatment Outpatient: None Inpatient: None - Reason for Previous Treatment Reason for Previous Treatment: Drug Abuse, Alcohol Abuse - Current Medications Current Medications: Active Medications Acetaminophen (Tylenol -) 650 mg PO Q6H PRN PRN Reason: FEVER Heparin Sodium (Porcine) (Heparin -) 5,000 unit SQ BID [facility] Last Admin: 09/11/17 23:03 Dose: Not Given Sodium Chloride (Normal Saline -) 1,000 mls @ 100 mls/hr IV ASDIR [facility] Stop: 09/13/17 00:29 Last Admin: 09/12/17 06:27 Dose: 100 mls/hr Vancomycin HCl (Vancomycin 1 Gm Premix -) 1 gm in 200 mls @ 133.333 mls/hr IVPB BID [facility] PRN Reason: Protocol Last Admin: 09/12/17 10:42 Dose: 133.333 mls/hr Piperacillin Sod/Tazobactam (Sod 4.5 gm/ Dextrose) 100 mls @ 200 mls/hr IVPB Q8H-IV [facility] PRN Reason: Protocol - Allergies Allergies: Allergies Allergy/AdvReac Type Severity Reaction Status Date / Time No Known Allergies Allergy Verified 09/11/17 08:41 - Current Living Status Usual Living Arrangement: Alone - Current Mental Status Evaluation Appearance: Disheveled Attitude: Uncooperative - Affect Affect: Constrictive - Mood Mood: Angry - Speech/Language Expressive: Coherent - Psychomotor Activity Psychomotor Activity: Normal - Thought Process Thought Process: Intact - Thought Content Hallucinations: Absent Delusions: Absent - Self Perception Self Perception: No Impairment - Cognition Attention: Alert Orientation: Time Memory, Immediate Recall: Intact Memory, Short Term: 2/3 Memory, Remote with Promptin/3 - Concentration Serial Sevens Intact: No Simple Calculations Intact: No - Insight Insight: Intact - Impulse Control Impulse Control: Minimally Impaired - Suicidal Ideation Suicidal Ideation: No - Homicidal Ideation Homicidal Ideation: No Assessment/Plan 1) No acute mental illness. 2) discharge when stable, no psych follow up.
[2017-09-12] MEDS: PIPERACILLIN/TAZOB 4.5 GM 4.5 GM in DEXTROSE 5%-WATER 100 ML IVPB SCH ×2 (11:04→18:34)
--- NOTE | 2017-09-12 12:06 | PN ---
Progress Note, Physician History of Present Illness: Pt with LUQ abdominal wall abscess/cellulitis from cocaine injection in diabetic . Wound with purulent exudate and induration. Patient admitted to medicine and on IV antibiotics per ID. Also noted to be Hep C positive from Ab lab. Patient was too sleepy to talk to yesterday in ER. Patient is currently resting comfortably in bed. When wakened, she c/o being hungry and wanting to leave hospital. She let me examine her abdomen, but got agitated quickly, focusing on wanting to eat and leave. She has not been febrile since ER. WBC today is . Blood cx are negative so far. Psych consultation noted. - Current Medication List Current Medications: Active Medications Acetaminophen (Tylenol -) 650 mg PO Q6H PRN PRN Reason: FEVER Heparin Sodium (Porcine) (Heparin -) 5,000 unit SQ BID [facility] Last Admin: 09/12/17 10:00 Dose: Not Given Sodium Chloride (Normal Saline -) 1,000 mls @ 100 mls/hr IV ASDIR [facility] Stop: 09/13/17 00:29 Last Admin: 09/12/17 06:27 Dose: 100 mls/hr Vancomycin HCl (Vancomycin 1 Gm Premix -) 1 gm in 200 mls @ 133.333 mls/hr IVPB BID [facility] PRN Reason: Protocol Last Admin: 09/12/17 10:42 Dose: 133.333 mls/hr Piperacillin Sod/Tazobactam (Sod 4.5 gm/ Dextrose) 100 mls @ 200 mls/hr IVPB Q8H-IV [facility] PRN Reason: Protocol Last Admin: 09/12/17 11:04 Dose: 200 mls/hr - Objective Vital Signs: Vital Signs Temperature 97.9 F 09/12/17 05:15 Pulse Rate 72 09/12/17 05:15 Respiratory Rate 20 09/12/17 05:15 Blood Pressure 110/77 09/12/17 05:15 O2 Sat by Pulse Oximetry (%) 95 09/11/17 21:00 Constitutional: Yes: Well Nourished, No Distress Eyes: Yes: Conjunctiva Clear, EOM Intact HENT: Yes: Atraumatic, Normocephalic Gastrointestinal: Yes: Soft, Tenderness (at LUQ wound), Other (LUQ wound - see below). No: Distention ...Rectal Exam: Yes: Deferred Musculoskeletal: No: Joint Stiffness, Joint Swelling Extremities: No: Cool, Cyanosis Integumentary: Yes: Other (LUQ abd wall ulcerated abscess). No: Jaundice, Rash Wound/Incision: Yes: Dressing Dry and Intact, Other (LUQ ulcerated abscess with pink, granulating surface (last bit of surface dark tissue removed with gauze), mensah/purulent exudate but no active/expressible drainage, indurated locally around and under, tender; very small superficial skin ulcer inferior to this as well, pale yellow base, just into dermis) Neurological: Yes: Alert, Other (seems oriented but uncooperative) Psychiatric: Yes: Alert, Agitated Labs: CBC, BMP 09/12/17 06:25 09/12/17 06:25 Microbiology 09/11/17 09:48 Urine Culture - Final Urine - Urine Clean Catch 09/11/17 09:32 Blood Culture - Preliminary Blood - Peripheral Venous NO GROWTH OBTAINED AFTER 24 HOURS, INCUBATION TO CONTINUE FOR 4 DAYS. 09/11/17 09:32 Blood Culture - Preliminary Blood - Peripheral Venous NO GROWTH OBTAINED AFTER 24 HOURS, INCUBATION TO CONTINUE FOR 4 DAYS. Problem List - Problems (1) Ulcer of abdomen wall with fat layer exposed Assessment/Plan: LUQ abd wall ulceration secondary to cocaine injection with induration and cellulitis underlying in diabetic patient agree with broad-spectrum IV antibiotics with MRSA coverage, ID on board blood cx neg to date suspect MRSA in wound Recommend daily dressings with gauze (4x4 tucked into wound bed +/- dampening with saline), covered with dry gauze or folded ABD and tape I offered her local debridement in the OR, which would increase the size of the wound and need daily dressing changes afterward until healed, and asked if she had anyone at home to help with that. She indicated "I have friends," and nodded when asked if one of those friends would be willing to come to the hospital to learn how to help her with dressings. When I tried to discuss further the procedure, risks and benefits, and what could happen if we did not remove the rest of the infected tissue (that the infection could spread, and she could ), she became agitated, saying, "I'm not going to from this." She was talking over me, and repeating that she just wants to check out and go home. "No one is doing anything, and I'm hungry." She also cursed at least once. I am not comfortable taking consent for procedure unless the patient is clearly able to understand both the procedure itself and its implications for postop wound care and followup needs, which she is not able to articulate at this time. Discussed with Dr. Knight of primary team. Ok to feed her today. Will follow to evaluate response to antibiotics and dressing changes, but if patient becomes willing to undergo operative debridement and agrees to VNS (if eligible) or can arrange appropriate assistance for daily postop wound care and comply with packing changes, would consider scheduling for later this week in [place]. Code(s): L98.492 - NON-PRS CHRONIC ULCER OF SKIN OF SITES W FAT LAYER EXPOSED (2) Cellulitis of abdominal wall Assessment/Plan: continue antibiotics - see above Code(s): L03.311 - CELLULITIS OF ABDOMINAL WALL (3) Diabetes mellitus with skin complication, without long-term current use of insulin Assessment/Plan: FS with SSI coverage, unclear if patient is taking home medication or not hold metformin [address] done with IV contrast Code(s): E11.628 - TYPE 2 DIABETES MELLITUS WITH OTHER SKIN COMPLICATIONS Qualifiers: Diabetes mellitus type: type 2 Diabetes mellitus complication detail: with other skin complication Qualified Code(s): E11.628 - Type 2 diabetes mellitus with other skin complications (4) Cocaine abuse with intoxication with complication Code(s): F14.129 - COCAINE ABUSE WITH INTOXICATION, UNSPECIFIED (5) Hepatitis C without hepatic coma Assessment/Plan: Ab was positive 12/07 agree with need for outpatient followup Code(s): B19.20 - UNSPECIFIED VIRAL HEPATITIS C WITHOUT HEPATIC COMA Qualifiers: Viral hepatitis chronicity: unspecified Qualified Code(s): B19.20 - Unspecified viral hepatitis C without hepatic coma
--- NOTE | 2017-09-12 13:14 | PN ---
Teaching Attending Note Name of Resident: Magan Knight ATTENDING PHYSICIAN STATEMENT I saw and evaluated the patient. I reviewed the resident's note and discussed the case with the resident. I agree with the resident's findings and plan as documented. SUBJECTIVE:c/o abdominal pain at ulcer site. denies injecting herself in any other location other than the abdomen. shakes head no or refuses to answer for ROS refuses to answer most questions and need to repeat questioning to get an answer OBJECTIVE: Last Vital Signs Temp Pulse Resp BP Pulse Ox 98.0 F 80 22 142/80 95 09/12/17 10:00 09/12/17 10:00 09/12/17 10:00 09/12/17 10:00 09/11/17 21:00 General NAD, flat affect CV S1 S2 RRR no murmur/rub/gallop Lungs CTA B/L no wheezing/rales/rhonchi Abdomen soft NT/ND LLQ with 3cm round ulcer with slough noted and purulent drainage. small eschar noted on medial aspect. surrounding area is firm but no fluctuance noted. unable to asses if theres undermined tissue as pt did not allow further evaluation. subcentimeter ulcer inferior to this with no active drainage. more superficial ASSESSMENT AND PLAN: 47yo F wtih PMH continuous cocaine abuse and DM presented to the ER with purulent drainage from the abdomen 1. Severe sepsis due to R abdominal wall cellulitis- from self injected cocaine into abdominal wall. Tm 102.9. lactic acidosis resolved. no underlying abscess seen on CT. would benefit from debridement however pt is unwilling to consent at this time. will cont with medical management for now. on Vanco/zosyn day 2. f /u Cx. would need to consider echo if BCx are +. HIV negative 2. Normocytic anemia- no signs of bleeding. iron studies pending. no indication for blood txn 3. DM- check A1c. cont iss and BGM. hold oral agents 4. Hx of psych disorder- noted to be very agitated during hospital stay and risk of eloping. psych consulted. 5. continuous cocaine abuse- counselled on risks assoc iwth continued drug abuse and risks of . refuses inpatient rehab at this time 6. DVT ppx- Hep sq
--- NOTE | 2017-09-12 18:26 | PN ---
Physical Exam: SUBJECTIVE: Patient seen and examined at bedside. Pt was somewhat combative. Refused to answer questions. Stated she just wanted food and to go home. OBJECTIVE: Vital Signs Period Temp Pulse Resp BP Sys/Sweet Pulse Ox Last 24 Hr 97.4 F-98.4 F 65-80 19-22 110-142/70-84 95-98 Pt refused physical exam. Laboratory Results - last 24 hr 09/12/17 09/12/17 09/12/17 05:05 06:25 06:25 WBC 4.8 RBC 3.32 L Hgb 10.0 L Hct 30.3 L MCV 91.3 MCH 30.2 MCHC 33.1 RDW 13.4 Plt Count 281 MPV 8.6 Neutrophils % 33.3 L D Lymphocytes % 47.2 H D Monocytes % 12.0 H Eosinophils % 7.0 H D Basophils % 0.5 Sodium 142 Potassium 3.7 Chloride 109 H Carbon Dioxide 28 Anion Gap 5 L BUN 8 Creatinine 0.6 Creat Clearance w eGFR > 60 POC Glucometer 87 Random Glucose 83 Hemoglobin A1c % Calcium 7.8 L Phosphorus 3.0 Ferritin 80.717 Total Bilirubin 0.5 D AST 41 H ALT 26 Alkaline Phosphatase 51 Troponin I < 0.02 Total Protein 6.9 Albumin 2.5 L 09/12/17 09/12/17 06:25 06:25 WBC RBC Hgb Hct MCV MCH MCHC RDW Plt Count MPV Neutrophils % Lymphocytes % Monocytes % Eosinophils % Basophils % Sodium Potassium Chloride Carbon Dioxide Anion Gap BUN Creatinine Creat Clearance w eGFR POC Glucometer Random Glucose Hemoglobin A1c % 7.7 H Calcium Phosphorus Ferritin Cancelled Total Bilirubin AST ALT Alkaline Phosphatase Troponin I Total Protein Albumin Active Medications Generic Name Dose Route Start Last Admin Trade Name Freq PRN Reason Stop Dose Admin Acetaminophen 650 mg 09/11/17 18:21 Tylenol - PO Q6H PRN FEVER Heparin Sodium (Porcine) 5,000 unit 09/11/17 13:15 09/12/17 10:00 Heparin - SQ Not Given BID PHILLIP Sodium Chloride 1,000 mls @ 100 mls/hr 09/11/17 14:30 09/12/17 06:27 Normal Saline - IV 09/13/17 00:29 100 mls/hr ASDIR PHILLIP Administration Vancomycin HCl 1 gm in 200 mls @ 133.333 mls/hr 09/12/17 10:00 09/12/17 10:42 Vancomycin 1 Gm Premix - IVPB 133.333 mls/hr BID PHILLIP Administration Protocol Piperacillin Sod/Tazobactam 100 mls @ 200 mls/hr 09/12/17 10:00 09/12/17 11: 04 Sod 4.5 gm/ Dextrose IVPB 200 mls/hr Q8H-IV PHILLIP Administration Protocol ASSESSMENT/PLAN: Pt is a 44 year old female with PMH of cocaine and heroin abuse, asthma and DM that presented today complaining of abdominal pain. She is admitted for cellulitis. #Cellullitis -Pt admits to "skin popping" -afebrile and without leukocytosis -CT abdomen neg for abscess -Vanc/Zosyn in ED -ID on board -Surg on board. Per surg, pt unable to give proper consent at this time, as she refuses to listen to or discuss risks/benefits/etc... #AMS -Pt required Ativan because of agitation -currently stable but easily agitated #Asthma -no wheezing at this time #DM -BGM ACHS -ISS -7.7% #Polysubstance abuse -Utox pos for cocaine -psych consulted. Cleared #Anemia -Hb increasing -F/u Fe studies #FEN -NS @ 100 -lytes wnl -DM diet #PPx -Hep SubQ #Dispo -Admitted for cellulitis Magan Knight MD PGY-1 IM Visit type - Emergency Visit Emergency Visit: No - New Patient This patient is new to me today: No - Critical Care Critical Care patient: No - Discharge Referral Referred to [facility] No
--- NOTE | 2017-09-13 00:07 | EKG ---
Test Reason : Blood Pressure : / mmHG Vent. Rate : 089 BPM Atrial Rate : 089 BPM P-R Int : 126 ms QRS Dur : 078 ms QT Int : 370 ms P-R-T Axes : 076 014 030 degrees QTc Int : 450 ms NORMAL SINUS RHYTHM NORMAL ECG NO PREVIOUS ECGS AVAILABLE Confirmed by PRATEEK MARCH MD ([id number]) on 09/13/2017 12:07:19 AM Referred By: Confirmed By:PRATEEK MARCH MD
[2017-09-13] MEDS: PIPERACILLIN/TAZOB 4.5 GM 4.5 GM in DEXTROSE 5%-WATER 100 ML IVPB SCH ×2 (01:00→10:16)
[2017-09-13] MEDS ORDERED: PIPERACILLIN/TAZOBACTAM 4.5 GM VIAL IVPB ONE (01:14)
[2017-09-13] MEDS ORDERED: DEXTROSE 5%-WATER 100 ML IVPB ONE (01:14)
[2017-09-13 04:01] VITALS: TEMP 99.8
[2017-09-13 06:06] LABS: SERUM IRON SATURATION 8 % (15-55); TOTAL IRON BINDING CAPACITY 281 ug/dL (250-450); UIBC 258 ug/dL (131-425)
[2017-09-13 07:05] VITALS: BP 139/77; PULSE 73
[2017-09-13 08:07] LABS: TRANSFERRIN 225 mg/dL (200-370)
--- NOTE | 2017-09-13 08:52 | PN ---
Physical Exam: SUBJECTIVE: Patient seen and examined at bedside. No acute events. Pt still easily agitated and obstinate. States she slept fine. Refusing operation. Refusing sinter feeder. OBJECTIVE: Vital Signs Period Temp Pulse Resp BP Sys/Sweet Pulse Ox Last 24 Hr 98.0 F-99.8 F 59-80 19-22 132-142/77-86 98-98 GENERAL: uncooperative, but rousable and in no apparent distress. HEAD: Normal with no signs of trauma. EYES: Unable to assess ENT: Unable to assess NECK: Trachea midline, full range of motion, supple. LUNGS: Breath sounds equal, clear to auscultation bilaterally, no wheezes, no crackles, no accessory muscle use. HEART: Regular rate and rhythm, S1, S2 with 4/6 systolic murmur at RUSB, rub or gallop. ABDOMEN: Ulceration central abdomen. Granulation tissue. dressing clean, wound wet but not draining. Soft, nontender, nondistended, normoactive bowel sounds, no guarding, no rebound, no hepatosplenomegaly, no masses. EXTREMITIES: 2+ pulses, warm, well-perfused, no edema. NEUROLOGICAL: unable to asses PSYCH: irritable, uncooperative SKIN: Warm, dry, normal turgor, no rashes or lesions noted Laboratory Results - last 24 hr 09/12/17 09/12/17 09/12/17 06:25 06:25 06:25 Sodium 142 Potassium 3.7 Chloride 109 H Carbon Dioxide 28 Anion Gap 5 L BUN 8 Creatinine 0.6 Creat Clearance w eGFR > 60 Random Glucose 83 Hemoglobin A1c % 7.7 H Calcium 7.8 L Phosphorus 3.0 Iron 23 L TIBC 281 Iron Saturation 8 L Transferrin 225 Ferritin 80.717 Total Bilirubin 0.5 D AST 41 H ALT 26 Alkaline Phosphatase 51 Troponin I < 0.02 Total Protein 6.9 Albumin 2.5 L 09/12/17 06:25 Sodium Potassium Chloride Carbon Dioxide Anion Gap BUN Creatinine Creat Clearance w eGFR Random Glucose Hemoglobin A1c % Calcium Phosphorus Iron TIBC Iron Saturation Transferrin Ferritin Cancelled Total Bilirubin AST ALT Alkaline Phosphatase Troponin I Total Protein Albumin Active Medications Generic Name Dose Route Start Last Admin Trade Name Freq PRN Reason Stop Dose Admin Acetaminophen 650 mg 09/11/17 18:21 Tylenol - PO Q6H PRN FEVER Heparin Sodium (Porcine) 5,000 unit 09/11/17 13:15 09/12/17 21:33 Heparin - SQ Not Given BID PHILLIP Vancomycin HCl 1 gm in 200 mls @ 133.333 mls/hr 09/12/17 10:00 09/12/17 21:30 Vancomycin 1 Gm Premix - IVPB 133.333 mls/hr BID PHILLIP Administration Protocol Piperacillin Sod/Tazobactam 100 mls @ 200 mls/hr 09/12/17 10:00 09/13/17 01: 00 Sod 4.5 gm/ Dextrose IVPB 200 mls/hr Q8H-IV PHILLIP Administration Protocol Insulin Aspart 1 vial 09/13/17 11:00 Novolog Vial Sliding Scale - SQ ACHS PHILLIP Protocol ASSESSMENT/PLAN:
[2017-09-13 10:11] LABS: BASO % 0.2 % (0-2.0); EOS % 5.2 % (0-4.5); HEMATOCRIT 35.6 % (32.4-45.2); HEMOGLOBIN 11.9 GM/dL (10.7-15.3); LYMPH % 29.1 % (8-40); MCH 30.3 pg (25.7-33.7); MCHC 33.3 g/dl (32.0-36.0); MEAN CELL VOLUME 90.8 fl (80-96); MONO % 6.4 % (3.8-10.2); NEUT % 59.1 % (42.8-82.8); PLATELET COUNT 353 K/MM3 (134-434); RBC 3.93 M/mm3 (3.60-5.2); RDW 13.3 % (11.6-15.6); WHITE BLOOD COUNT 4.4 K/mm3 (4.0-10.0)
[2017-09-13] MEDS: VANCOMYCIN 1 GM PREMIX - 1 GM/200 ML BAG IVPB SCH (10:16)
[2017-09-13] MEDS: HEPARIN NA (PORCINE) 5,000 UNITS/ML 1ML VIAL SQ SCH (10:16)
[2017-09-13 10:37] LABS: CHLORIDE 109 mmol/L (98-107); POTASSIUM 3.8 mmol/L (3.5-5.1); SODIUM 143 mmol/L (136-145)
[2017-09-13] MEDS ORDERED: INSULIN SLIDING SCALE (NOVOLOG) 1 VIAL SQ SCH (11:00)
[2017-09-13 11:27] LABS: ALBUMIN 2.8 g/dl (3.4-5.0); ALK PHOS 56 U/L (45-117); ANION GAP 7 (8-16); BILIRUBIN,TOTAL 0.7 mg/dL (0.2-1.0); BLOOD UREA NITROGEN 7 mg/dL (7-18); CALCIUM 8.4 mg/dL (8.5-10.1); CO2 27 mmol/L (21-32); CREATININE 0.7 mg/dL (0.55-1.02); GLUCOSE,RANDOM 182 mg/dL (74-106); SGOT/AST 37 U/L (15-37); SGPT/ALT 25 U/L (12-78); TOT PROT 7.8 g/dl (6.4-8.2)
--- NOTE | 2017-09-13 16:53 | DS ---
Physical Exam: SUBJECTIVE: Patient seen and examined at bedside. No acute events. Pt still easily agitated and obstinate. States she slept fine. Refusing operation. Refusing physician assistant primary care. OBJECTIVE: Vital Signs Period Temp Pulse Resp BP Sys/Sweet Pulse Ox Last 24 Hr 98.3 F-99.8 F 59-79 19-20 139-142/77-86 98 PHYSICAL EXAM GENERAL: uncooperative, but rousable and in no apparent distress. HEAD: Normal with no signs of trauma. EYES: Unable to assess ENT: Unable to assess NECK: Trachea midline, full range of motion, supple. LUNGS: Breath sounds equal, clear to auscultation bilaterally, no wheezes, no crackles, no accessory muscle use. HEART: Regular rate and rhythm, S1, S2 with 4/6 systolic murmur at RUSB, rub or gallop. ABDOMEN: Ulceration central abdomen. Granulation tissue. dressing clean, wound wet but not draining. Soft, nontender, nondistended, normoactive bowel sounds, no guarding, no rebound, no hepatosplenomegaly, no masses. EXTREMITIES: 2+ pulses, warm, well-perfused, no edema. NEUROLOGICAL: unable to asses PSYCH: irritable, uncooperative SKIN: Warm, dry, normal turgor, no rashes or lesions noted LABS Laboratory Results - last 24 hr 09/12/17 09/13/17 09/13/17 06:25 06:24 09:45 WBC 4.4 RBC 3.93 Hgb 11.9 D Hct 35.6 D MCV 90.8 MCH 30.3 MCHC 33.3 RDW 13.3 Plt Count 353 D MPV 8.0 Neutrophils % 59.1 D Lymphocytes % 29.1 D Monocytes % 6.4 Eosinophils % 5.2 H Basophils % 0.2 Nucleated RBC % 0 Sodium Potassium Chloride Carbon Dioxide Anion Gap BUN Creatinine Creat Clearance w eGFR POC Glucometer 131 Random Glucose Calcium Iron 23 L TIBC 281 Iron Saturation 8 L Transferrin 225 Total Bilirubin AST ALT Alkaline Phosphatase Total Protein Albumin 09/13/17 09:45 WBC RBC Hgb Hct MCV MCH MCHC RDW Plt Count MPV Neutrophils % Lymphocytes % Monocytes % Eosinophils % Basophils % Nucleated RBC % Sodium 143 Potassium 3.8 Chloride 109 H Carbon Dioxide 27 Anion Gap 7 L BUN 7 Creatinine 0.7 Creat Clearance w eGFR > 60 POC Glucometer Random Glucose 182 H Calcium 8.4 L Iron TIBC Iron Saturation Transferrin Total Bilirubin 0.7 D AST 37 ALT 25 Alkaline Phosphatase 56 Total Protein 7.8 Albumin 2.8 L HOSPITAL COURSE: Date of Admission:09/11/17 Date of Discharge: 09/13/17 Pt is a 47 y/o F with PMH substance abuse who was "skin popping" (injecting cocaine subQ) in abdomen. Pt developed 2 ulcerations on her abdomen. Pt was started on IV vanc and zosyn and continued with ID recs. BCx were negative. Wound Cx presumptive positive for MRSA. Pt was seen by gen surg who felt it was not possible to consent the patient as the patient was not receptive to discuss pre or post op care. It was felt that the patient did not understand the risks and benefits. Pt was also seen by psych who felt she was not at risk of mental pathology if discharged. Ultimately, pt felt she did not want to stay in the hospital. Risks of leaving against medical advise were explained in detail including worsening infection, sepsis, and . All questions were answered. Pt left AMA. Minutes to complete discharge: 30 Discharge Summary Reason For Visit: CELLULITIS Condition: Unchanged/Unknown - Instructions Diet, Activity, Other Instructions: If your symptoms get worse or if you develop new symptoms, please return to the emergency department. Disposition: AGAINST MEDICAL ADVICE - Home Medications Comprehensive Discharge Medication List: Ambulatory Orders Albuterol Sulfate Inhaler - [Ventolin HFA Inhaler -] 2 inh IH Q4H PRN #1 inh 08/04 metFORMIN HCL [Glucophage -] 500 mg PO BID #60 tablet 11/11/14 traZODone HCL [Desyrel -] 50 mg PO HS #30 tablet 12/05/14 Metformin HCl [Glucophage] 1,000 mg PO BID #60 tablet 12/09/14 Clindamycin [Cleocin -] 450 mg PO TID #21 capsule 09/13/17 This patient is new to me today: No Emergency Visit: No Critical Care patient: No - Discharge Referral Referred to [facility] No
== END 2017-09-13 11:05 | disposition left against medical advice (07) | DRG 720 ==
LOC: JER 08:29 → JERBED 12:21 → J4W 20:35
PROVIDERS: ADMIT Internal Medicine; ATTEND Hospitalist
DX: A41.9 Sepsis, unspecified organism (principal); E11.622 Type 2 diabetes mellitus with other skin ulcer; J45.909 Unspecified asthma, uncomplicated; L03.90 Cellulitis, unspecified; F19.94 Other psychoactive substance use, unspecified with psychoactive substance-induced mood disorder; F11.20 Opioid dependence, uncomplicated; E66.9 Obesity, unspecified; Z68.25 Body mass index [BMI] 25.0-25.9, adult; R50.9 Fever, unspecified; R00.0 Tachycardia, unspecified; F17.210 Nicotine dependence, cigarettes, uncomplicated; L03.311 Cellulitis of abdominal wall; L98.492 Non-pressure chronic ulcer of skin of other sites with fat layer exposed; F14.129 Cocaine abuse with intoxication, unspecified; B19.20 Unspecified viral hepatitis C without hepatic coma; D64.9 Anemia, unspecified; R65.20 Severe sepsis without septic shock
CPT/HCPCS: 36415; 71045-TC-FY; 74177-TC; 80053; 80307; 81003; 81015; 82728; 82962; 83036; 83540; 83550; 83605; 83690; 84100; 84466; 84484; 84703; 85025; 85610; 85730; 86850; 86900; 86901; 87040; 87070; 87086; 87186; 87205; 87389; 93005; 93010; 99284-25; J0131; J1644; J7030

== ENCOUNTER 2019-04-16 16:45 | Inpatient (IN) | payer OTHER ==
--- NOTE | 2019-04-16 16:58 | PDOC ---
Rapid Medical Evaluation Time Seen by Provider: 04/16/19 16:54 Medical Evaluation: Allergies Allergy/AdvReac Type Severity Reaction Status Date / Time No Known Allergies Allergy Verified 09/11/17 08:41 04/16/19 16:54 I performed a brief in-person evaluation of this patient. 49-year-old female with IDDM, active IVDU presenting with 4 days of right lower extremity abscess, draining pus. Pertinent physical exam findings: T 102.8 Pt declines physical exam of leg I have ordered the following: Sepsis order set Wound culture RLE x-ray Patient to proceed to the Main ED for further evaluation. Discharge Disposition - Diagnosis Abscess, Sepsis - Referrals - Patient Instructions - Post Discharge Activity
[2019-04-16] MEDS ORDERED: SODIUM CHLORIDE 1,000 ML IV STA (16:59)
[2019-04-16] MEDS ORDERED: ACETAMINOPHEN 1000 MG/100 ML VIAL (NON FORMULARY) IVPB ONE (17:00)
[2019-04-16] MEDS ORDERED: VANCOMYCIN 1 GM in D5W (PRE-DOCKED) 1,000 MG/250 ML IVPB ONE (17:46)
[2019-04-16] MEDS ORDERED: PIPERACILLIN/TAZOB 3.375 GM 3.375 GM in DEXTROSE 5%-WATER - 50 ML IVPB ONE (17:46)
--- NOTE | 2019-04-16 18:00 | PDOC ---
Attending Attestation - Resident Resident Name: Mariya Feliciano - ED Attending Attestation I have performed the following: I have examined & evaluated the patient, The case was reviewed & discussed with the resident, I agree w/resident's findings & plan, Exceptions are as noted - HPI HPI: 04/16/19 18:00 49y F hx of cocaine abuse, asthma, dm, presents with complaint of increased swelling/discharge to her R calf worsening for the past 4 days - pt also notes a mild headache and feeling malaise. Pt notes she has had a recent wound on her R calf that was in a hosptial for 2 months for in [place]. states her wound started when she injected cocaine into her leg. pt deneis any other complaints such as cp, sob, cough, early, abd pain, n/v, back pain, numbness/ tingling/weakness. Exam: General: no acute distress, ao x 3 abd: soft ontennder ext: large fluctuant mass on her L calf with discharge of purulent material, no crepitus appreciated vitals: febrile will obtain CT of her leg to eval for dept of infection and possible nec faciitis sepsis orderset obtained will start broad spectrum abx anticipate admission - Physicial Exam PE: 04/20/19 11:47 see above - Medical Decision Making 04/20/19 11:47 see above
[2019-04-16] MEDS ORDERED: ACETAMINOPHEN INJECTION 100 ML IVPB ONE (18:29)
[2019-04-16] MEDS ORDERED: PIPERACILLIN/TAZOB 3.375 GM 3.375 GM/50 ML BAG IVPB ONE (18:30)
[2019-04-16 18:55] LABS: VENOUS PC02 49.4 mmHg (38-52)
[2019-04-16 18:56] LABS: VENOUS PO2 < 49 mmHg (28-48)
[2019-04-16 19:03] LABS: BASO % 0.2 % (0-2.0); EOS % 0.1 % (0-4.5); HEMATOCRIT 36.6 % (32.4-45.2); HEMOGLOBIN 11.9 GM/dL (10.7-15.3); LYMPH % 17.4 % (8-40); MCH 29.3 pg (25.7-33.7); MCHC 32.4 g/dl (32.0-36.0); MEAN CELL VOLUME 90.4 fl (80-96); MEAN PLT VOLUME 8.7 fl (7.5-11.1); MONO % 7.8 % (3.8-10.2); NEUT % 74.5 % (42.8-82.8); PLATELET COUNT 339 K/MM3 (134-434); RBC 4.05 M/mm3 (3.60-5.2); RDW 13.3 % (11.6-15.6); WHITE BLOOD COUNT 15.1 K/mm3 (4.0-10.0)
[2019-04-16 19:23] LABS: INR 1.16 (0.83-1.09); PROTHROMBIN TIME (PATIENT) 13.7 SEC (9.7-13.0)
[2019-04-16 19:26] LABS: ACTIVATED PTT 29.5 SECONDS (25.2-36.5)
[2019-04-16] MEDS ORDERED: VANCOMYCIN 1 GRAM (PRE-DOCKED) 1,000 MG/250 ML BAG IVPB ONE (19:28)
[2019-04-16 19:33] LABS: ALBUMIN 3.5 g/dl (3.4-5.0); BILIRUBIN,TOTAL 1.7 mg/dL (0.2-1); BLOOD UREA NITROGEN 13.7 mg/dL (7-18); CALCIUM 8.9 mg/dL (8.5-10.1); CREATININE 1.1 mg/dL (0.55-1.3); POTASSIUM 3.9 mmol/L (3.5-5.1); TOT PROT 9.9 g/dl (6.4-8.2)
[2019-04-16] MEDS ORDERED: LACTATED RINGERS SOLUTION 1000 ML INFUS.BAG IV ONE ×2 (19:45→21:53)
--- NOTE | 2019-04-16 19:48 | PDOC ---
History of Present Illness - General Chief Complaint: Wound Stated Complaint: RT LEG PAIN Time Seen by Provider: 04/16/19 16:54 History Source: Patient Exam Limitations: No Limitations - History of Present Illness Initial Comments: 04/16/19 19:46 49y F with PMH of Cocaine use (IV), Asthma presenting to ED with complaints of R leg abscess and pain. She states she noticed the abscess 4 days ago and it has been draining. She has been hospitalized multiple times for abscess/ cellulitis. She was injecting cocaine into her R leg. She endorses pain in the leg, fever, chills, headache. Denies chest pain, sob back pain, urinary symptoms , abdominal pain, n/v/d. She is homeless. She states she was in a hospital in [place] for her leg abscess in December. PMD: none PMH: see hpi Meds: none Allergies: nkda social: cocaine, crack Past History - Past Medical History Allergies/Adverse Reactions: Allergies Allergy/AdvReac Type Severity Reaction Status Date / Time No Known Allergies Allergy Verified 04/16/19 16:54 Home Medications: Ambulatory Orders Albuterol Sulfate Inhaler - [Ventolin HFA Inhaler -] 2 inh IH Q4H PRN #1 inh 08/04 metFORMIN HCL [Glucophage -] 500 mg PO BID #60 tablet 11/11/14 traZODone HCL [Desyrel -] 50 mg PO HS #30 tablet 12/05/14 Metformin HCl [Glucophage] 1,000 mg PO BID #60 tablet 12/09/14 Clindamycin [Cleocin -] 450 mg PO TID #21 capsule 09/13/17 Anemia: No Asthma: Yes Cancer: No Cardiac Disorders: No CVA: No COPD: No CHF: No Dementia: No Diabetes: Yes (Type II) GI Disorders: No Disorders: No HTN: No Hypercholesterolemia: No Kidney Stones: No Liver Disease: No Seizures: No Thyroid Disease: No - Reproductive History PID: No - Immunization History Immunization Up to Date: No - Psycho Social/Smoking Cessation Hx Smoking Status: Yes Smoking History: Current every day smoker Have you smoked in the past 12 months: Yes Number of Cigarettes Smoked Daily: 5 Information on smoking cessation initiated: Yes 'Breaking Loose' booklet given: 09/12/17 Hx Alcohol Use: Yes Drug/Substance Use Hx: Yes Substance Use Type: Cocaine Hx Substance Use Treatment: No Review of Systems - Review of Systems Constitutional: Yes: Chills, Fever HEENTM: No: Symptoms Reported Respiratory: No: Symptoms reported Cardiac (ROS): No: Symptoms Reported ABD/GI: No: Symptoms Reported : No: Symptoms Reported Musculoskeletal: Yes: See HPI Integumentary: Yes: See HPI Neurological: No: Symptoms reported *Physical Exam - Vital Signs Last Vital Signs Temp Pulse Resp BP Pulse Ox 102.8 F H 104 H 18 102/81 98 04/16/19 16:54 04/16/19 16:54 04/16/19 16:54 04/16/19 16:54 04/16/19 16:54 - Physical Exam General Appearance: Yes: Appropriately Dressed, Moderate Distress, Thin HEENT: positive: EOMI, JEZ, Normal ENT Inspection. negative: Thrush Neck: positive: Trachea midline, Supple. negative: Lymphadenopathy (R), Lymphadenopathy (L) Respiratory/Chest: positive: Lungs Clear, Normal Breath Sounds. negative: Crackles, Rales, Rhonchi, Stridor, Wheezing Cardiovascular: positive: Regular Rhythm, S1, S2, Tachycardia. negative: Edema , JVD, Murmur Vascular Pulses: Dorsalis-Pedis (R): 2+, Doralis-Pedis (L): 2+ Gastrointestinal/Abdominal: positive: Normal Bowel Sounds, Flat, Soft. negative : Tender Musculoskeletal: negative: CVA Tenderness, Vertebral Tenderness Extremity: positive: Normal Capillary Refill, Other (approx 8cm abscess on lateral RLE mid calf. with active brown fluid drainage. induration and fluctuance, erythema) Integumentary: positive: Normal Color, Dry, Warm, Other (old scars on upper extremities) Neurologic: positive: improvement intern II-XII NML intact, Fully Oriented, Alert, Normal Mood/ Affect, Normal Response, Motor Strength / ED Treatment Course - LABORATORY CBC & Chemistry Diagram: 04/16/19 18:40 04/16/19 18:40 - ADDITIONAL ORDERS Additional order review: Laboratory Results 04/16/19 04/16/19 04/16/19 18:40 18:40 18:40 PT with INR INR PTT (Actin FS) VBG pH 7.40 POC VBG pCO2 49.4 POC VBG pO2 < 49 H VBG HCO3 30.1 H VBG O2 Sat (Carol) 20.8 L VBG Base Excess 4.9 H Sodium 130 L Potassium 3.9 Chloride 94 L Carbon Dioxide 30 Anion Gap 7 L BUN 13.7 Creatinine 1.1 Est GFR (CKD-EPI)AfAm 69.24 Est GFR (CKD-EPI)NonAf 59.74 Random Glucose 135 H Lactic Acid 2.9 H* Calcium 8.9 Total Bilirubin 1.7 H AST 39 H ALT 41 Alkaline Phosphatase 105 Troponin I Total Protein 9.9 H Albumin 3.5 04/16/19 04/16/19 18:40 18:40 PT with INR 13.70 H INR 1.16 H PTT (Actin FS) 29.5 VBG pH POC VBG pCO2 POC VBG pO2 VBG HCO3 VBG O2 Sat (Carol) VBG Base Excess Sodium Potassium Chloride Carbon Dioxide Anion Gap BUN Creatinine Est GFR (CKD-EPI)AfAm Est GFR (CKD-EPI)NonAf Random Glucose Lactic Acid Calcium Total Bilirubin AST ALT Alkaline Phosphatase Troponin I < 0.02 Total Protein Albumin 04/16/19 18:40 RBC 4.05 MCV 90.4 MCHC 32.4 RDW 13.3 MPV 8.7 Neutrophils % 74.5 D Lymphocytes % 17.4 D Monocytes % 7.8 Eosinophils % 0.1 D Basophils % 0.2 - RADIOLOGY Radiology Studies Ordered: Category Date Time Status LOWER EXTREMITY CT WITH CONTR [CT] Stat CT Scan 04/16/19 18:02 Ordered - Medications Given in the ED: ED Medications Discontinued Medications Generic Name Dose Route Start Last Admin Trade Name Freq PRN Reason Stop Dose Admin Acetaminophen 1,000 mg 04/16/19 17:00 04/16/19 18:30 Ofirmev Injection - IVPB 04/16/19 17:01 1,000 mg ONCE ONE Administration Sodium Chloride 1,000 mls @ 1,000 mls/hr 04/16/19 16:59 04/16/19 19:45 Normal Saline - IV 04/16/19 17:58 1,000 mls/hr ASDIR STA Administration Piperacillin Sod/Tazobactam 50 mls @ 100 mls/hr 04/16/19 17:46 04/16/19 18:35 Sod 3.375 gm/ Dextrose IVPB 04/16/19 18:15 100 mls/hr ONCE ONE Administration Protocol Vancomycin HCl 1,000 mg 04/16/19 17:46 04/16/19 19:45 Vancomycin (Pre-Docked) IVPB 04/16/19 17:47 1,000 mg ONCE ONE Administration Protocol Medical Decision Making - Medical Decision Making 04/17/19 00:15 49yo IVDU presenting with R leg abscess with foul smelling drainage. vitals: tachycardic, febrile. ddx: cellulitis, abscess, nec fas, osteomyelitis. sepsis w/u started, wound cultures obtained. iv fluids, vanc/zosyn. ofirmev labs show white count, slight hypnatremia, elevated tbili and AST. UA positive for infection (pt receiveing abx) pending ct of RLE. XRAy ordered. 04/17/19 00:17 xray negative for bone involvement, pending CT. cxr; no infiltrates or consolidations. will admit for abscess of RLE Discharge - Discharge Information Problems reviewed: Yes Clinical Impression/Diagnosis: Abscess Sepsis Qualifiers: Sepsis type: sepsis due to unspecified organism Sepsis acute organ dysfunction status: unspecified Qualified Code(s): A41.9 - Sepsis, unspecified organism UTI (urinary tract infection) Qualifiers: Urinary tract infection type: site unspecified Hematuria presence: without hematuria Qualified Code(s): N39.0 - Urinary tract infection, site not specified Condition: Stable - Admission Yes - Follow up/Referral - Patient Discharge Instructions - Post Discharge Activity
[2019-04-16 20:15] LABS: URINE APPEARANCE Cloudy; URINE BILIRUBIN 3+ (NEGATIVE); URINE COLOR Amber; URINE GLUCOSE (UA) Trace (NEGATIVE); URINE KETONE 1+ (NEGATIVE); URINE LEUK ESTERASE 3+ (NEGATIVE); URINE NITRITE Positive (NEGATIVE); URINE PROTEIN 2+ (NEGATIVE); URINE UROBILINOGEN >=8.0 E.U./dl mg/dL (0.2-1.0)
[2019-04-16 20:35] LABS: EPI CELLS 0-5 /HPF (0-5/HPF); HYALINE CASTS 0 /lpf (0-8); URINE BACTERIA MODERATE /hpf (NEGATIVE)
[2019-04-16 20:36] LABS: URINE WBC >100 /hpf (0-5)
--- NOTE | 2019-04-16 22:53 | PN ---
Teaching Attending Note Name of Resident: Beulah Driver ATTENDING PHYSICIAN STATEMENT I saw and evaluated the patient. I reviewed the resident's note and discussed the case with the resident. I agree with the resident's findings and plan as documented. SUBJECTIVE: Patient is a 49 year old Homeless woman with a PMH of IVDU, Cocaine abuse, Tobacco use, MRSA infection, Asthma, NIDDM and Leg ulcer who presents with complaint of increased swelling of right calf and discharge from her right calf wound - worsening for the past 4 days. Has associated mild headache and feeling malaise. Was recently hospitalized in [place] in December for the leg wound infection. States her wound started when she injected cocaine into her leg. Denies chest pain, SOB, COWART, abdominal pian, cough, nausea, vomiting, back pain , numbness, tingling or weakness. OBJECTIVE: Alert Vital Signs Period Temp Pulse Resp BP Sys/Sweet Pulse Ox Last 24 Hr 98.6 F-102.8 F 81-104 14-18 92-102/51-81 98-98 HEENT: No Jaundice, eye redness or discharge, PERRLA, EOMI. Normocephalic, atraumatic. External ears are normal and hearing is grossly intact. No nasal discharge. Neck: Supple, nontender. No palpable adenopathy or thyromegaly. No JVD Chest: Good effort. Clear to auscultation and percussion. Heart: Regular. No S3, rub or murmur Abdomen: Not distended, soft, nontender and no HSM. No rebound or guarding. Normal bowel sounds. Ext: Peripheral pulses intact. No leg edema. Large fluctuant mass on her left calf with discharge of purulent material, but no crepitus. Skin: Warm and dry. No petechiae, rash or ecchymosis. Stigmata of IVDU. Neuro: Alert. Oriented x3. CN 2-12 grossly intact. Sensation grossly intact in all four extremities and DTR are symmetric. Psych: Appropriate mood and affect. Good insight. Home Medications Medication Instructions Recorded Albuterol Sulfate Inhaler - 2 inh IH Q4H PRN #1 inh 12/08/11 [Ventolin HFA Inhaler -] metFORMIN HCL [Glucophage -] 500 mg PO BID #60 tablet 11/11/14 traZODone HCL [Desyrel -] 50 mg PO HS #30 tablet 12/05/14 Metformin HCl [Glucophage] 1,000 mg PO BID #60 tablet 12/09/14 Clindamycin [Cleocin -] 450 mg PO TID #21 capsule 09/13/17 Abnormal Lab Results 04/16/19 04/16/19 04/16/19 18:40 18:40 18:40 WBC 15.1 H Absolute Neuts (auto) 11.3 H PT with INR 13.70 H INR 1.16 H POC VBG pO2 VBG HCO3 VBG O2 Sat (Carol) VBG Base Excess Sodium 130 L Chloride 94 L Anion Gap 7 L Random Glucose 135 H Lactic Acid Total Bilirubin 1.7 H AST 39 H Total Protein 9.9 H Urine Protein Urine Ketones Urine Blood Urine Bilirubin Urine Urobilinogen Ur Leukocyte Esterase 04/16/19 04/16/19 04/16/19 18:40 18:40 19:00 WBC Absolute Neuts (auto) PT with INR INR POC VBG pO2 < 49 H VBG HCO3 30.1 H VBG O2 Sat (Carol) 20.8 L VBG Base Excess 4.9 H Sodium Chloride Anion Gap Random Glucose Lactic Acid 2.9 H* Total Bilirubin AST Total Protein Urine Protein 2+ H Urine Ketones 1+ H Urine Blood 1+ H Urine Bilirubin 3+ H Urine Urobilinogen >=8.0 e.u./dl H Ur Leukocyte Esterase 3+ H ASSESSMENT AND PLAN: 1. Sepsis due to infected left leg wound and ?abscess - Xray of left leg shows soft tissue swelling, no fracture or air collection. No acute abnormality on CXR. Has features of UTI. Sepsis workup done and being treated with IV vancomycin and zosyn; IV NS according to sepsis protocol. CT of left leg does not show any abscess, but possible muscle involvement. EKG shows NSR with no significant changes. Elevated LFTs are unexplained. Will get upper abdominal sonogram, hepatitis serology, HIV testing and trend LFTs and lactic acid. Consult ID and surgery. Consult psychotherapist social worker for patient's living situation. Will continue comprehensive care for all of patients comorbid conditions. 2. DM For now, we will hold the home diabetes drugs and implement sliding scale insulin regimen. Provide comprehensive diabetes care with patient teaching and counseling about the importance of adherence to prescribed diabetes regimen, euglycemia, eye care and foot care. 3. Tobacco Use Counseled on risks associated with tobacco use. We will provide patient all the necessary assistance to facilitate smoking cessation and prescribe Nicotine patch. 4. Drug abuse - Monitor closely for drug withdrawal. Counseled patient about abstaining from drug abuse. Will consult pheresis specialist and refer to drug detox upon discharge. 5. DVT prophylaxis - Lovenox 40 mg SQ q 24 hours. 6. Advance directives - Full code
--- NOTE | 2019-04-17 00:45 | HP ---
CHIEF COMPLAINT: left leg abscess PCP: none HISTORY OF PRESENT ILLNESS: 49 year old female with hx of IVDU, IDDM, MRSA (August 2017), and asthma, who presents to the ED for a 4 day history of right leg abscess. Patient states she had injected a needle for cocaine use to her right leg/calf area and noticed the site to be infected. She states this initially began about 2 months ago from injecting a needle and she was treated at a hospital in [place] with antibiotics. Patient is unable to recall name of the hospital but states she stayed in the hospital for 2 months, was given abx and had several dressing changes. Patient was also here August 2017 for an abdominal abscess s/p injecting a needle in her abdomen. She states she did not complete treatment and signed out AMA at the time. Patient also states she had a mild headache earlier today, which has now resolved. Patient denies any chest pain, shortness of breath, nausea, vomiting, or other problems at this time. Patient denies any abdominal pain, urinary complaints, or bowel changes. She states she is homeless and alternates between living with her father and friends. She does not work. Patient states she smokes cigarettes very rarely, but admits to drinking 6-8 cans of 8oz beers daily. She denies any heroin use. She admits to 1 bag of IV cocaine use and inhales crack. NKDA. LNMP was about 2-3 years ago. ER course was notable for: (1) CBC with leukocytosis at 15.1, LA 2.9, tbil 1.7, AST 39. UA positive with nakul, cloudy, 2+ protein, 1+ketones, 1+blood, 3+bili, WBC>100, mod bacteria (2) CXR no acute path, tibial Xray of left leg shows soft tissue swelling, no fracture or air collection. CT of leg pending read. (3) 2LR, 1 NS, Orfimev, Vanc and zosyn Recent Travel: none PAST MEDICAL HISTORY: as above PAST SURGICAL HISTORY: none Social History: Smoking: denies Alcohol:6-8 beers daily Drugs: IDV cocaine Allergies No Known Allergies Allergy (Verified 04/16/19 16:54) HOME MEDICATIONS: Home Medications Medication Instructions Recorded Albuterol Sulfate Inhaler - 2 inh IH Q4H PRN #1 inh 12/08/11 [Ventolin HFA Inhaler -] metFORMIN HCL [Glucophage -] 500 mg PO BID #60 tablet 11/11/14 traZODone HCL [Desyrel -] 50 mg PO HS #30 tablet 12/05/14 Metformin HCl [Glucophage] 1,000 mg PO BID #60 tablet 12/09/14 Clindamycin [Cleocin -] 450 mg PO TID #21 capsule 09/13/17 REVIEW OF SYSTEMS CONSTITUTIONAL: fever Absent: chills, diaphoresis, generalized weakness, malaise, loss of appetite, weight change HEENT: Absent: rhinorrhea, nasal congestion, throat pain, throat swelling, difficulty swallowing, mouth swelling, ear pain, eye pain, visual changes CARDIOVASCULAR: Absent: chest pain, syncope, palpitations, irregular heart rate, lightheadedness , peripheral edema RESPIRATORY: Absent: cough, shortness of breath, dyspnea with exertion, orthopnea, wheezing, stridor, hemoptysis GASTROINTESTINAL: Absent: abdominal pain, abdominal distension, nausea, vomiting, diarrhea, constipation, melena, hematochezia GENITOURINARY: Absent: dysuria, frequency, urgency, hesitancy, hematuria, flank pain, genital pain MUSCULOSKELETAL: Absent: myalgia, arthralgia, joint swelling, back pain, neck pain SKIN: Leg ulcer Absent: rash, itching, pallor HEMATOLOGIC/IMMUNOLOGIC: Absent: easy bleeding, easy bruising, lymphadenopathy, frequent infections ENDOCRINE: Absent: unexplained weight gain, unexplained weight loss, heat intolerance, cold intolerance NEUROLOGIC: Absent: headache, focal weakness or paresthesias, dizziness, unsteady gait, seizure, mental status changes, bladder or bowel incontinence PSYCHIATRIC: Absent: anxiety, depression, suicidal or homicidal ideation, hallucinations. PHYSICAL EXAMINATION Vital Signs - 24 hr 04/16/19 04/16/19 04/16/19 16:54 21:55 23: Temperature 102.8 F H 98.6 F Pulse Rate 104 H Pulse Rate [ 81 Left Radial] Respiratory 18 14 14 Rate Blood Pressure 102/81 Blood Pressure 92/51 L [Right Arm] O2 Sat by Pulse 98 98 98 Oximetry (%) GENERAL: Awake, alert, and fully oriented, in mild distress. HEAD: Normal with no signs of trauma. EYES: Pupils equal, round and reactive to light, extraocular movements intact, sclera anicteric, conjunctiva clear. No lid lag. EARS, NOSE, THROAT: oropharynx clear without exudates. Moist mucous membranes. NECK: Normal range of motion, supple without lymphadenopathy, JVD, or masses. LUNGS: Breath sounds equal, clear to auscultation bilaterally. No wheezes, and no crackles. No accessory muscle use. HEART: Regular rate and rhythm, normal S1 and S2 with3/6 systolic murmur at Aortic region and sternal border ABDOMEN: Soft, nontender, not distended, normoactive bowel sounds, no guarding, no rebound, no masses. MUSCULOSKELETAL: Normal range of motion at all joints. No bony deformities or tenderness. No CVA tenderness. UPPER EXTREMITIES: 2+ pulses, warm, well-perfused. No cyanosis. No clubbing. No peripheral edema. LOWER EXTREMITIES: 2+ pulses, warm, well-perfused. No calf tenderness. trace peripheral edema on right leg NEUROLOGICAL: Cranial nerves II-XII intact. motor strength 5/5, sensation intact. PSYCHIATRIC: Cooperative. Good eye contact. Appropriate mood and affect. SKIN: Warm, dry, with large erythematous, tender, and seropurulent drainage from right leg ulcer with surrounding evidence of chronic infection Laboratory Results - last 24 hr 04/16/19 04/16/19 04/16/19 18:40 18:40 18:40 WBC 15.1 H RBC 4.05 Hgb 11.9 Hct 36.6 MCV 90.4 MCH 29.3 MCHC 32.4 RDW 13.3 Plt Count 339 MPV 8.7 Absolute Neuts (auto) 11.3 H Neutrophils % 74.5 D Lymphocytes % 17.4 D Monocytes % 7.8 Eosinophils % 0.1 D Basophils % 0.2 Nucleated RBC % 0 PT with INR 13.70 H INR 1.16 H PTT (Actin FS) 29.5 VBG pH POC VBG pCO2 POC VBG pO2 VBG HCO3 VBG O2 Sat (Carol) VBG Base Excess Sodium Potassium Chloride Carbon Dioxide Anion Gap BUN Creatinine Est GFR (CKD-EPI)AfAm Est GFR (CKD-EPI)NonAf Random Glucose Lactic Acid Calcium Total Bilirubin AST ALT Alkaline Phosphatase Troponin I < 0.02 Total Protein Albumin Urine Color Urine Appearance Urine pH Ur Specific [place] Urine Protein Urine Glucose (UA) Urine Ketones Urine Blood Urine Nitrite Urine Bilirubin Urine Urobilinogen Ur Leukocyte Esterase Urine WBC (Auto) Urine RBC (Auto) Urine Casts (Auto) U Epithel Cells (Auto) Urine Bacteria (Auto) 04/16/19 04/16/19 04/16/19 18:40 18:40 18:40 WBC RBC Hgb Hct MCV MCH MCHC RDW Plt Count MPV Absolute Neuts (auto) Neutrophils % Lymphocytes % Monocytes % Eosinophils % Basophils % Nucleated RBC % PT with INR INR PTT (Actin FS) VBG pH 7.40 POC VBG pCO2 49.4 POC VBG pO2 < 49 H VBG HCO3 30.1 H VBG O2 Sat (Carol) 20.8 L VBG Base Excess 4.9 H Sodium 130 L Potassium 3.9 Chloride 94 L Carbon Dioxide 30 Anion Gap 7 L BUN 13.7 Creatinine 1.1 Est GFR (CKD-EPI)AfAm 69.24 Est GFR (CKD-EPI)NonAf 59.74 Random Glucose 135 H Lactic Acid 2.9 H* Calcium 8.9 Total Bilirubin 1.7 H AST 39 H ALT 41 Alkaline Phosphatase 105 Troponin I Total Protein 9.9 H Albumin 3.5 Urine Color Urine Appearance Urine pH Ur Specific [place] Urine Protein Urine Glucose (UA) Urine Ketones Urine Blood Urine Nitrite Urine Bilirubin Urine Urobilinogen Ur Leukocyte Esterase Urine WBC (Auto) Urine RBC (Auto) Urine Casts (Auto) U Epithel Cells (Auto) Urine Bacteria (Auto) 04/16/19 19:00 WBC RBC Hgb Hct MCV MCH MCHC RDW Plt Count MPV Absolute Neuts (auto) Neutrophils % Lymphocytes % Monocytes % Eosinophils % Basophils % Nucleated RBC % PT with INR INR PTT (Actin FS) VBG pH POC VBG pCO2 POC VBG pO2 VBG HCO3 VBG O2 Sat (Carol) VBG Base Excess Sodium Potassium Chloride Carbon Dioxide Anion Gap BUN Creatinine Est GFR (CKD-EPI)AfAm Est GFR (CKD-EPI)NonAf Random Glucose Lactic Acid Calcium Total Bilirubin AST ALT Alkaline Phosphatase Troponin I Total Protein Albumin Urine Color Nakul Urine Appearance Cloudy Urine pH 5.0 Ur Specific [place] 1.020 Urine Protein 2+ H Urine Glucose (UA) Trace Urine Ketones 1+ H Urine Blood 1+ H Urine Nitrite Positive Urine Bilirubin 3+ H Urine Urobilinogen >=8.0 e.u./dl H Ur Leukocyte Esterase 3+ H Urine WBC (Auto) >100 Urine RBC (Auto) 10-15 Urine Casts (Auto) 0 U Epithel Cells (Auto) 0-5 Urine Bacteria (Auto) Moderate ASSESSMENT/PLAN: Sepsis 2/2 right leg ulcer/abscess vs UTI febrile on admission at 102.8, tachy 104, BP 92/51 mmHg WBC 15.1, LA 2.9 UA positive and purulent/ foul smelling draining ulcer of right leg as possible source Urine, wound and blood cultures sent cont with vanc and zosyn until speciation and sensitivity for abscess and UTI Xray only showed soft tissue swelling w/o evidence of bone involvement. Ct of the legs cellulitis and ulceration without abscess but with potential muscle involvement Pt received 3 L in the ED will continue fluid resuscitation with NS @ 100cc/hr murmur 06/28 though present since 2018. NO echo on file will get echo to assess for valvular seeding. HX of MRSA in 2018 will screen with MRSA nare for colonization ID consult Dr Robledo surgery consult NPO in case of intervention elevated lactic acid most likely due to tissue hypoperfusion due to sepsis LA 2.9 NS @ 100cc/hr repeat pending Abnormal LFTs active alcohol use active IV drug user. "gets needles from a friend " AST 39, tbil 1.7, PT/INR 137/1.16 liver US hepatitis serology, HIV testing trend LFTs DM ISS BGM Asthma albuterol PRN Alcohol use disorder ativan PRN monitor lytes FEN NPO NS@100 cc/h monitor lytes DVT lovenox daily Admit to med-surge Visit type - Emergency Visit Emergency Visit: Yes ED Registration Date: 04/16/19 Care time: The patient presented to the Emergency Department on the above date and was hospitalized for further evaluation of their emergent condition. - New Patient This patient is new to me today: Yes Date on this admission: 04/17/19 - Critical Care Critical Care patient: No ATTENDING PHYSICIAN STATEMENT I saw and evaluated the patient. I reviewed the resident's note and discussed the case with the resident. I agree with the resident's findings and plan as documented. SUBJECTIVE: OBJECTIVE: ASSESSMENT AND PLAN:
[2019-04-17] MEDS ORDERED: ALBUTEROL SO4 0.083% IH SOL 2.5 MG/3 ML VIAL.NEB. NEB PRN ×2 (02:04→17:31)
[2019-04-17] MEDS ORDERED: VANCOMYCIN 1,000 MG in DEXTROSE 5%-WATER - 250 ML IVPB SCH (02:15)
[2019-04-17] MEDS ORDERED: VANCOMYCIN 1 GRAM (PRE-DOCKED) 1,000 MG/250 ML BAG IVPB ONE (02:27)
[2019-04-17] MEDS: SODIUM CHLORIDE 1,000 ML IV SCH ×3 (02:43→17:54)
[2019-04-17 05:43] VITALS: BMI 25.2
[2019-04-17] MEDS ORDERED: PNEUMOC 13-VAL CONJ-DIP CRM/PF 0.5 ML DISP.SYRIN IM ONE (05:43)
[2019-04-17] MEDS: INSULIN SLIDING SCALE (NOVOLOG) 1 VIAL SQ SCH ×3 (06:20→21:36)
[2019-04-17] MEDS ORDERED: PIPERACILLIN/TAZOBACTAM 2.25 GM VIAL IVPB ONE ×2 (06:36→13:29)
[2019-04-17] MEDS ORDERED: DEXTROSE 5%-WATER - 50 ML IVPB ONE ×3 (06:36→18:07)
[2019-04-17] MEDS: PIPERACILLIN/TAZOB 2.25 GM 2.25 GM in DEXTROSE 5%-WATER - 50 ML IVPB SCH ×2 (06:37→13:33)
[2019-04-17] MEDS ORDERED: DEXTROSE 5%-NORMAL SALINE 1,000 ML IV SCH ×2 (08:30→17:31)
[2019-04-17] MEDS ORDERED: SODIUM CHLORIDE 500 ML IV STA (08:41)
[2019-04-17] MEDS ORDERED: HEPARIN NA (PORCINE) 5,000 UNITS/ML 1ML VIAL SQ SCH (10:00)
[2019-04-17] MEDS ORDERED: PNEUMOCOCCAL 23 VACCINE 0.5 ML VIAL IM ONE (10:00)
[2019-04-17] MEDS ORDERED: ENOXAPARIN NA (PORCINE) 40 MG/0.4 ML DISP.SYRIN SQ SCH (10:00)
[2019-04-17] MEDS ORDERED: FLU VACCINE QUAD 60 MCG/0.5 ML (MDV 19-20) IM ONE (10:00)
[2019-04-17 10:41] LABS: BASO % 0.5 % (0-2.0); EOS % 1.6 % (0-4.5); HEMATOCRIT 31.5 % (32.4-45.2); HEMOGLOBIN 10.2 GM/dL (10.7-15.3); LYMPH % 18.7 % (8-40); MCH 29.3 pg (25.7-33.7); MCHC 32.4 g/dl (32.0-36.0); MEAN CELL VOLUME 90.4 fl (80-96); MEAN PLT VOLUME 9.2 fl (7.5-11.1); NEUT % 68.2 % (42.8-82.8); PLATELET COUNT 214 K/MM3 (134-434); RBC 3.49 M/mm3 (3.60-5.2); RDW 13.3 % (11.6-15.6); WHITE BLOOD COUNT 8.2 K/mm3 (4.0-10.0)
[2019-04-17 11:18] LABS: ALBUMIN 2.4 g/dl (3.4-5.0); BILIRUBIN,TOTAL 1.2 mg/dL (0.2-1); BLOOD UREA NITROGEN 7.9 mg/dL (7-18); CREATININE 0.6 mg/dL (0.55-1.3); MAGNESIUM 1.8 mg/dL (1.8-2.4); POTASSIUM 3.8 mmol/L (3.5-5.1); TOT PROT 7.2 g/dl (6.4-8.2)
--- NOTE | 2019-04-17 12:05 | CONSULT ---
- Consultation REQUESTING PROVIDER: CONSULT REQUEST: We have been asked to surgically evaluate this patient for RLE ulcer PCP:Carlos Haque MD HISTORY OF PRESENT ILLNESS: 49 y/o F w/ PMHx IVDU, IDDM, MRSA (August 2017), and asthma, admitted for a 4 day history of right leg abscess. Pt is a poor historian. Pt reports ulcer began in December after injecting cocaine into a vessel in her leg. States she became ill and was at a hospital in [place] for 2 months at which time she had surgery for the infection in her leg. Pt reports she was admitted for 2 months, cannot recall why she was kept that long or if she required ICU care. Has not followed up with anyone after the surgery, cannot recall surgeons name. Now states she injected into the same location within the past week and noted an ulcer forming a few days ago, states pain and drainage have worsened prompting her to come to the ED. last drug use was yesterday. Denies any fever/chills. At baseline pt is homeless, lives with dad sometimes and friends when able to. Drinks 6-8 cans of beer daily, uses Iv cocaine and inhales crack. Pt was seen by Dr Velasco in Jun 2017 for abdominal abscess s/p injecting a needle in her abdomen, did not complete trtmt as she signed out AMA. PMHx: as above PSHx: multiple I&Ds to b/l ue's due to infection from IVDU Home Medications Medication Instructions Recorded Albuterol Sulfate Inhaler - 2 inh IH Q4H PRN #1 inh 12/08/11 [Ventolin HFA Inhaler -] metFORMIN HCL [Glucophage -] 500 mg PO BID #60 tablet 11/11/14 traZODone HCL [Desyrel -] 50 mg PO HS #30 tablet 12/05/14 Metformin HCl [Glucophage] 1,000 mg PO BID #60 tablet 12/09/14 Clindamycin [Cleocin -] 450 mg PO TID #21 capsule 09/13/17 Allergies Allergy/AdvReac Type Severity Reaction Status Date / Time No Known Allergies Allergy Verified 04/16/19 16:54 REVIEW OF SYSTEMS: CONSTITUTIONAL: Absent: fever, chills CARDIOVASCULAR: Absent: chest pain RESPIRATORY: Absent: cough, shortness of breath GASTROINTESTINAL: Absent: abdominal pain PHYSICAL EXAM: GENERAL: Awake, alert, and fully oriented, in no acute distress. HEAD: Normal with no signs of trauma. UPPER EXTREMITIES: b/l ue's with well healed I&D sites LOWER EXTREMITIES: RLE with approx 1.5x.75 cm open ulcer at lateral aspect of proximal calf, ++moderate purulent drainage, adjacent area of skin with soft eschar approx 3x2cm. Large area of surrounding skin (approx [id number]) boggy/ edematous and fluctuant, proximally appears to be from skin (?prior skin graft). Thigh without evidence of skin graft removal. Multiple scabs over legs and feet Vasc: 2+ dp/pt b/l Vital Signs Temperature 98.5 F 04/17/19 09:00 Pulse Rate 69 04/17/19 09:00 Respiratory Rate 18 04/17/19 09:00 Blood Pressure 94/58 L 04/17/19 09:00 O2 Sat by Pulse Oximetry (%) 98 04/17/19 05:31 Lab Results WBC 8.2 K/mm3 (4.0-10.0) 04/17/19 09:50 RBC 3.49 M/mm3 (3.60-5.2) L 04/17/19 09:50 Hgb 10.2 GM/dL (10.7-15.3) L 04/17/19 09:50 Hct 31.5 % (32.4-45.2) L 04/17/19 09:50 MCV 90.4 fl (80-96) 04/17/19 09:50 MCHC 32.4 g/dl (32.0-36.0) 04/17/19 09:50 RDW 13.3 % (11.6-15.6) 04/17/19 09:50 Plt Count 214 K/MM3 (134-434) D 04/17/19 09:50 Sodium 139 mmol/L (136-145) 04/17/19 09:50 Potassium 3.8 mmol/L (3.5-5.1) 04/17/19 09:50 Chloride 106 mmol/L (98-107) 04/17/19 09:50 Carbon Dioxide 29 mmol/L (21-32) 04/17/19 09:50 Anion Gap 4 MMOL/L (8-16) L 04/17/19 09:50 BUN 7.9 mg/dL (7-18) 04/17/19 09:50 Creatinine 0.6 mg/dL (0.55-1.3) 04/17/19 09:50 Random Glucose 132 mg/dL (74-106) H 04/17/19 09:50 Calcium 8.0 mg/dL (8.5-10.1) L 04/17/19 09:50 INR 1.16 (0.83-1.09) H 04/16/19 18:40 CT lower ext w/ contrast 04/16: Subcutaneous edema lateral aspect right calf with associated subcutaneous air that may be related to ulceration. No discrete abscess identified. A/P: 49 y/o F w/ PMHx IVDU, IDDM, MRSA (August 2017), and asthma, admitted for a 4 day history of right leg abscess. Pt is a poor historian. Pt reports ulcer began in December after injecting cocaine into a vessel in her leg. RLE with large draining infected ulcer. Pt febrile to 103 on admission with wbc 15k (normalized now) +UTI NPO, has not eaten since last night -Keep NPO -Plan for OR this afternoon for debridement (may be extensive requiring wound vac or plastics in near future) -Abx per ID -F/u blood/urine and wound cultures -Glucose control -HIV/Hep c pending -Will follow closely d/w attending Dr Wilder
--- NOTE | 2019-04-17 12:12 | EKG ---
Test Reason : Blood Pressure : / mmHG Vent. Rate : 098 BPM Atrial Rate : 098 BPM P-R Int : 110 ms QRS Dur : 072 ms QT Int : 320 ms P-R-T Axes : -12 014 001 degrees QTc Int : 408 ms SINUS RHYTHM WITH SHORT OR OTHERWISE NORMAL ECG WHEN COMPARED WITH ECG OF 11-SEP-2017 10:06, INVERTED T WAVES HAVE REPLACED NONSPECIFIC T WAVE ABNORMALITY IN INFERIOR LEADS Confirmed by MD Irma, Hernesto ([id number]) on 04/17/2019 12:12:36 PM Referred By: Confirmed By:Hernesto Solis MD
--- NOTE | 2019-04-17 12:43 | ECHO ---
Version: 1 Name: CLEOPATRA SENA Exam: Adult Echocardiogram Study Date: 04/17/2019, 10:53 AM Age: 49 Years MMode/2D Measurements & Calculations IVSd: 0.76 cm LVIDs: 2.7 cm LVIDd: 4.5 cm LVPWd: 0.79 cm ACS: 1.72 cm Ao root diam: 2.5 cm LA dimension: 3.9 cm Doppler Measurements & Calculations MV E max harlan: 86.6 cm/sec Med E/e': 8.5 MV A max halran: 81.2 cm/sec Med Peak E' Harlan: 10.1 cm/sec MV E/A: 1.07 Lat E/e': 7.3 Lat Peak E' Harlan: 11.9 cm/sec MR max P.7 mmHg Ao max P.1 mmHg Ao mean P.0 mmHg Ao V2 max: 166.5 cm/sec PI end-d harlan: 111.3 cm/sec TR max harlan: 249.9 cm/sec TR max P.0 mmHg Procedure A two-dimensional transthoracic echocardiogram with color flow and Doppler was performed. The patien t was in normal sinus rhythm during the exam. Left Ventricle The left ventricle is normal in size. There is mild concentric left ventricular hypertrophy. The lef t ventricular ejection fraction is normal. Ejection Fraction = 65%. Left Ventricular Filling pattern i s normal for age. The left ventricular wall motion is normal. Right Ventricle The right ventricle is normal in size and function. Atria Normal left and right atrial size and function. Mitral Valve The mitral valve is grossly normal. There is mild mitral regurgitation. Tricuspid Valve The tricuspid valve is not well visualized, but is grossly normal. There is Trace to mild tricuspid regurgitation. Right ventricular systolic pressure is normal. Aortic Valve The aortic valve is trileaflet. No hemodynamically significant valvular aortic stenosis. Pulmonic Valve The pulmonic valve is not well visualized. Great Vessels The aortic root is normal size. Pericardium/Pleura There is no pericardial effusion. Summary Statements The left ventricle is normal in size. There is mild concentric left ventricular hypertrophy. The left ventricular ejection fraction is normal. Normal left and right atrial size and function. There is mild mitral regurgitation. There is Trace to mild tricuspid regurgitation. Right ventricular systolic pressure is normal. No hemodynamically significant valvular aortic stenosis. MD Hernesto Solis 04/17/2019, 12:42 PM Ordering Physician: BOSTON ESPANA Performed By: Mikayla Parker
--- NOTE | 2019-04-17 15:38 | PN ---
Progress Note (short form) - Note Progress Note: ID CONSULT DICTATED R LE ST ABSCESS AWAIT C/S FOR I&D CONTINUE VANCOMYCIN/ ZOSYN
[2019-04-17] MEDS ORDERED: MIDAZOLAM HCL 2 MG/2 ML SINGLE DOSE VIAL ONE (15:44)
[2019-04-17] MEDS ORDERED: PROPOFOL 20 ML ONE ×2 (15:44)
[2019-04-17] MEDS ORDERED: LIDOCAINE HCL/PF 2% SDV 5ML VIAL ONE (15:44)
[2019-04-17] MEDS ORDERED: DEXAMETHASONE SOD PHOSPHATE 4 MG/1 ML VIAL ONE (15:44)
[2019-04-17] MEDS ORDERED: VANCOMYCIN 1 GRAM (PRE-DOCKED) 1,000 MG/250 ML BAG IVPB SCH (16:00)
[2019-04-17] MEDS ORDERED: VANCOMYCIN 1,000 MG VIAL (RESTRICTED TO ID ONLY) IVPB ONE (16:20)
[2019-04-17] MEDS ORDERED: BACITRACIN 50,000 UNITS VIAL NR ONE (16:50)
[2019-04-17] MEDS ORDERED: ONDANSETRON 4 MG/2 ML VIAL IVPUSH PRN (16:53)
[2019-04-17] MEDS ORDERED: HYDROmorphone HCl 2 MG/ML VIAL ONE (16:56)
[2019-04-17] MEDS ORDERED: LACTATED RINGERS SOLUTION 1,000 ML IV SCH (17:00)
--- NOTE | 2019-04-17 17:28 | OP ---
Operative Note - Note: Operative Date: 04/17/19 Pre-Operative Diagnosis: soft tissue infection Operation: debridment and irrigationand packing right lower extremity Findings: soft tissue infection with necrosis Post-Operative Diagnosis: Same as Pre-op Surgeon: Deyvi Block Anesthesia: General Specimens Removed: soft tissue Estimated Blood Loss (mls): 20 Operative Report Dictated: Yes
[2019-04-17] MEDS ORDERED: HYDROmorphone HCl 2 MG/ML VIAL IVPB PRN (17:31)
--- NOTE | 2019-04-17 17:31 | PN ---
Physical Exam: SUBJECTIVE: Patient seen and examined. Complains of pain in leg. denies chest pain, SOB, abd pain. Patient states she uses 1 bag of cocaine a day and injects in multiple locations. OBJECTIVE: Vital Signs Period Temp Pulse Resp BP Sys/Sweet Pulse Ox Last 24 Hr 97.6 F-102.8 F 64-104 14-18 90-128/51-81 96-100 GENERAL: The patient is awake, alert, and fully oriented, in no acute distress. HEAD: Normal with no signs of trauma. EYES: EOMI, no scleral icterus ENT: dry mucous membranes NECK: supple, full range of motion LUNGS: Breath sounds equal, clear to auscultation bilaterally, no wheezes, no crackles, no accessory muscle use. HEART: Regular rate and rhythm, S1, S2 without murmur, rub or gallop ABDOMEN: Soft, nontender, nondistended, normoactive bowel sounds, no guarding EXTREMITIES: 2+ pulses, warm. Multiple track woods noted on all extremities. Large fluctuent boggy abscess with drainage and central area of necrosis with erythema and edema on right calf NEUROLOGICAL: sensation intact throughout PSYCH: Normal mood, normal affect. SKIN: abscess as noted above on right calf Laboratory Results - last 24 hr 04/16/19 04/16/19 04/16/19 18:40 18:40 18:40 WBC 15.1 H RBC 4.05 Hgb 11.9 Hct 36.6 MCV 90.4 MCH 29.3 MCHC 32.4 RDW 13.3 Plt Count 339 MPV 8.7 Absolute Neuts (auto) 11.3 H Neutrophils % 74.5 D Lymphocytes % 17.4 D Monocytes % 7.8 Eosinophils % 0.1 D Basophils % 0.2 Nucleated RBC % 0 PT with INR 13.70 H INR 1.16 H PTT (Actin FS) 29.5 VBG pH POC VBG pCO2 POC VBG pO2 VBG HCO3 VBG O2 Sat (Carol) VBG Base Excess Sodium Potassium Chloride Carbon Dioxide Anion Gap BUN Creatinine Est GFR (CKD-EPI)AfAm Est GFR (CKD-EPI)NonAf POC Glucometer Random Glucose Lactic Acid Calcium Phosphorus Magnesium Total Bilirubin AST ALT Alkaline Phosphatase Troponin I < 0.02 Total Protein Albumin Urine Color Urine Appearance Urine pH Ur Specific [place] Urine Protein Urine Glucose (UA) Urine Ketones Urine Blood Urine Nitrite Urine Bilirubin Urine Urobilinogen Ur Leukocyte Esterase Urine WBC (Auto) Urine RBC (Auto) Urine Casts (Auto) U Epithel Cells (Auto) Urine Bacteria (Auto) 04/16/19 04/16/19 04/16/19 18:40 18:40 18:40 WBC RBC Hgb Hct MCV MCH MCHC RDW Plt Count MPV Absolute Neuts (auto) Neutrophils % Lymphocytes % Monocytes % Eosinophils % Basophils % Nucleated RBC % PT with INR INR PTT (Actin FS) VBG pH 7.40 POC VBG pCO2 49.4 POC VBG pO2 < 49 H VBG HCO3 30.1 H VBG O2 Sat (Carol) 20.8 L VBG Base Excess 4.9 H Sodium 130 L Potassium 3.9 Chloride 94 L Carbon Dioxide 30 Anion Gap 7 L BUN 13.7 Creatinine 1.1 Est GFR (CKD-EPI)AfAm 69.24 Est GFR (CKD-EPI)NonAf 59.74 POC Glucometer Random Glucose 135 H Lactic Acid 2.9 H* Calcium 8.9 Phosphorus Magnesium Total Bilirubin 1.7 H AST 39 H ALT 41 Alkaline Phosphatase 105 Troponin I Total Protein 9.9 H Albumin 3.5 Urine Color Urine Appearance Urine pH Ur Specific [place] Urine Protein Urine Glucose (UA) Urine Ketones Urine Blood Urine Nitrite Urine Bilirubin Urine Urobilinogen Ur Leukocyte Esterase Urine WBC (Auto) Urine RBC (Auto) Urine Casts (Auto) U Epithel Cells (Auto) Urine Bacteria (Auto) 04/16/19 04/17/19 04/17/19 19:00 06:19 09:50 WBC 8.2 RBC 3.49 L Hgb 10.2 L Hct 31.5 L MCV 90.4 MCH 29.3 MCHC 32.4 RDW 13.3 Plt Count 214 D MPV 9.2 Absolute Neuts (auto) 5.6 Neutrophils % 68.2 Lymphocytes % 18.7 Monocytes % 11.0 H Eosinophils % 1.6 D Basophils % 0.5 Nucleated RBC % 0 PT with INR INR PTT (Actin FS) VBG pH POC VBG pCO2 POC VBG pO2 VBG HCO3 VBG O2 Sat (Carol) VBG Base Excess Sodium Potassium Chloride Carbon Dioxide Anion Gap BUN Creatinine Est GFR (CKD-EPI)AfAm Est GFR (CKD-EPI)NonAf POC Glucometer 93 Random Glucose Lactic Acid Calcium Phosphorus Magnesium Total Bilirubin AST ALT Alkaline Phosphatase Troponin I Total Protein Albumin Urine Color [place] Urine Appearance Cloudy Urine pH 5.0 Ur Specific [place] 1.020 Urine Protein 2+ H Urine Glucose (UA) Trace Urine Ketones 1+ H Urine Blood 1+ H Urine Nitrite Positive Urine Bilirubin 3+ H Urine Urobilinogen >=8.0 e.u./dl H Ur Leukocyte Esterase 3+ H Urine WBC (Auto) >100 Urine RBC (Auto) 10-15 Urine Casts (Auto) 0 U Epithel Cells (Auto) 0-5 Urine Bacteria (Auto) Moderate 04/17/19 04/17/19 04/17/19 09:50 09:50 12:16 WBC RBC Hgb Hct MCV MCH MCHC RDW Plt Count MPV Absolute Neuts (auto) Neutrophils % Lymphocytes % Monocytes % Eosinophils % Basophils % Nucleated RBC % PT with INR INR PTT (Actin FS) VBG pH POC VBG pCO2 POC VBG pO2 VBG HCO3 VBG O2 Sat (Carol) VBG Base Excess Sodium 139 Potassium 3.8 Chloride 106 Carbon Dioxide 29 Anion Gap 4 L BUN 7.9 Creatinine 0.6 Est GFR (CKD-EPI)AfAm 125.80 Est GFR (CKD-EPI)NonAf 108.54 POC Glucometer 166 Random Glucose 132 H Lactic Acid 1.4 Calcium 8.0 L Phosphorus 3.0 Magnesium 1.8 Total Bilirubin 1.2 H AST 34 ALT 29 Alkaline Phosphatase 72 Troponin I Total Protein 7.2 Albumin 2.4 L Urine Color Urine Appearance Urine pH Ur Specific [place] Urine Protein Urine Glucose (UA) Urine Ketones Urine Blood Urine Nitrite Urine Bilirubin Urine Urobilinogen Ur Leukocyte Esterase Urine WBC (Auto) Urine RBC (Auto) Urine Casts (Auto) U Epithel Cells (Auto) Urine Bacteria (Auto) Active Medications Generic Name Dose Route Start Last Admin Trade Name Freq PRN Reason Stop Dose Admin Albuterol Sulfate 1 amp 04/17/19 02:04 Ventolin 0.083% Nebulizer Soln - NEB Q4H PRN SHORT OF BREATH/WHEEZING Enoxaparin Sodium 40 mg 04/17/19 10:00 04/17/19 12:36 Lovenox - SQ 40 mg DAILY PHILLIP Administration Dextrose/Sodium Chloride 1,000 mls @ 100 mls/hr 04/17/19 08:30 04/17/19 12:36 D5-Ns - IV 100 mls/hr ASDIR PHILLIP Administration Piperacillin Sod/Tazobactam 50 mls @ 100 mls/hr 04/17/19 18:00 Sod 3.375 gm/ Dextrose IVPB Q8H-IV PHILLIP Protocol Vancomycin HCl 1,000 mg in 250 mls @ 166.667 mls/hr 04/17/19 16:00 Vancomycin (Pre-Docked) IVPB Q12H PHILLIP Protocol Insulin Aspart 1 vial 04/17/19 07:00 04/17/19 12:18 Novolog Vial Sliding Scale - SQ Not Given ACHS PHILLIP Protocol ASSESSMENT/PLAN: 49 y/o/f with PMHx of IVDU, IDDM, MRSA (August 2017), and asthma, who presents to the ED with a large abscess on her right calf. #Sepsis 2/2 right leg ulcer/abscess vs UTI - F/u blood, urine, wound cultures - WBC 8.2, continue to monitor - UA positive for UTI - Sepsis likely 2/2 to abscess of right calf - ID consulted - Continue Vanc/Zosyn - Ct of the legs cellulitis and ulceration without abscess but with potential muscle involvement - IVF - ECHO without evidence of vegetations or other significant pathology - Hx of MRSA - surgery consulted - patient to go to OR for I&D today #Lactic Acidosis - likely 2/2 to sepsis - normalized #Abnormal LFTs - active alcohol drinker, IVDU - Follow LFTs - Hep serology, HIV test pending #DM - ISS - BGM #Asthma - Nebs Q4hr PRN #Alcohol use disorder - Ativan PRN #FEN - NPO in anticipation for further procedure, can start when cleared by surgery - LR @75mls/hr - monitor and replete lytes as needed #DVTPPX - Holding Lovenox for I&D procedure #Disposition - I&D procedure today - Patient open to going to rehab when ready for D/C Visit type - Emergency Visit Emergency Visit: Yes ED Registration Date: 04/16/19 Care time: The patient presented to the Emergency Department on the above date and was hospitalized for further evaluation of their emergent condition. - New Patient This patient is new to me today: Yes Date on this admission: 04/17/19 - Critical Care Critical Care patient: No ATTENDING PHYSICIAN STATEMENT I saw and evaluated the patient. I reviewed the resident's note and discussed the case with the resident. I agree with the resident's findings and plan as documented. SUBJECTIVE: OBJECTIVE: ASSESSMENT AND PLAN:
--- NOTE | 2019-04-17 17:59 | PN ---
Teaching Attending Note Name of Resident: Andrea Vargas ATTENDING PHYSICIAN STATEMENT I saw and evaluated the patient. I reviewed the resident's note and discussed the case with the resident. I agree with the resident's findings and plan as documented with exceptions below. SUBJECTIVE: Patient seen and examined. right calf pain. No complaints otherwise. OBJECTIVE: Vital Signs Period Temp Pulse Resp BP Sys/Swete Pulse Ox Last 24 Hr 97.6 F-99.8 F 64-88 14-18 90-128/51-78 96-100 Intake & Output 04/14/19 04/15/19 04/16/19 04/17/19 23:59 23:59 23:59 23:59 Intake Total 2000 1200 Output Total 10 Balance 1999 1190 Weight 120 lb 147 lb 2 oz General: lying in bed, no acute distress chest: CTAb, no rales or wheezing Abdomen:soft, NT Extremities: right calf wound 9x7 cm on posterior calf, fluctance, central eschar, purlent drainage expressed, tender warm, surrounding swelling/erythema, no lymphangitis noted, pos pulses Home Medications Medication Instructions Recorded Albuterol Sulfate Inhaler - 2 inh IH Q4H PRN #1 inh 12/08/11 [Ventolin HFA Inhaler -] metFORMIN HCL [Glucophage -] 500 mg PO BID #60 tablet 11/11/14 traZODone HCL [Desyrel -] 50 mg PO HS #30 tablet 12/05/14 Metformin HCl [Glucophage] 1,000 mg PO BID #60 tablet 12/09/14 Clindamycin [Cleocin -] 450 mg PO TID #21 capsule 09/13/17 Active Medications Albuterol Sulfate (Ventolin 0.083% Nebulizer Soln -) 1 amp NEB Q4H PRN PRN Reason: SHORT OF BREATH/WHEEZING Hydromorphone HCl (Dilaudid Vial -) 1 mg IVPB Q6H PRN PRN Reason: PAIN LEVEL 6-10 Vancomycin HCl (Vancomycin (Pre-Docked)) 1,000 mg in 250 mls @ 166.667 mls/hr IVPB Q12H PHILLIP; Protocol Piperacillin Sod/Tazobactam (Sod 3.375 gm/ Dextrose) 50 mls @ 100 mls/hr IVPB Q8H-IV PHILLIP; Protocol Sodium Chloride (Normal Saline -) 1,000 mls @ 100 mls/hr IV ASDIR PHILLIP Last Admin: 04/17/19 17:54 Dose: 0 mls Insulin Aspart (Novolog Vial Sliding Scale -) 1 vial SQ ACHS PHILLIP; Protocol Ondansetron HCl (Zofran Injection) 4 mg IVPUSH Q6H PRN PRN Reason: NAUSEA AND/OR VOMITING Laboratory Results - last 24 hr 04/16/19 04/16/19 04/16/19 18:40 18:40 18:40 WBC 15.1 H RBC 4.05 Hgb 11.9 Hct 36.6 MCV 90.4 MCH 29.3 MCHC 32.4 RDW 13.3 Plt Count 339 MPV 8.7 Absolute Neuts (auto) 11.3 H Neutrophils % 74.5 D Lymphocytes % 17.4 D Monocytes % 7.8 Eosinophils % 0.1 D Basophils % 0.2 Nucleated RBC % 0 PT with INR 13.70 H INR 1.16 H PTT (Actin FS) 29.5 VBG pH POC VBG pCO2 POC VBG pO2 VBG HCO3 VBG O2 Sat (Carol) VBG Base Excess Sodium Potassium Chloride Carbon Dioxide Anion Gap BUN Creatinine Est GFR (CKD-EPI)AfAm Est GFR (CKD-EPI)NonAf POC Glucometer Random Glucose Lactic Acid Calcium Phosphorus Magnesium Total Bilirubin AST ALT Alkaline Phosphatase Troponin I < 0.02 Total Protein Albumin Urine Color Urine Appearance Urine pH Ur Specific [place] Urine Protein Urine Glucose (UA) Urine Ketones Urine Blood Urine Nitrite Urine Bilirubin Urine Urobilinogen Ur Leukocyte Esterase Urine WBC (Auto) Urine RBC (Auto) Urine Casts (Auto) U Epithel Cells (Auto) Urine Bacteria (Auto) 04/16/19 04/16/19 04/16/19 18:40 18:40 18:40 WBC RBC Hgb Hct MCV MCH MCHC RDW Plt Count MPV Absolute Neuts (auto) Neutrophils % Lymphocytes % Monocytes % Eosinophils % Basophils % Nucleated RBC % PT with INR INR PTT (Actin FS) VBG pH 7.40 POC VBG pCO2 49.4 POC VBG pO2 < 49 H VBG HCO3 30.1 H VBG O2 Sat (Carol) 20.8 L VBG Base Excess 4.9 H Sodium 130 L Potassium 3.9 Chloride 94 L Carbon Dioxide 30 Anion Gap 7 L BUN 13.7 Creatinine 1.1 Est GFR (CKD-EPI)AfAm 69.24 Est GFR (CKD-EPI)NonAf 59.74 POC Glucometer Random Glucose 135 H Lactic Acid 2.9 H* Calcium 8.9 Phosphorus Magnesium Total Bilirubin 1.7 H AST 39 H ALT 41 Alkaline Phosphatase 105 Troponin I Total Protein 9.9 H Albumin 3.5 Urine Color Urine Appearance Urine pH Ur Specific [place] Urine Protein Urine Glucose (UA) Urine Ketones Urine Blood Urine Nitrite Urine Bilirubin Urine Urobilinogen Ur Leukocyte Esterase Urine WBC (Auto) Urine RBC (Auto) Urine Casts (Auto) U Epithel Cells (Auto) Urine Bacteria (Auto) 04/16/19 04/17/19 04/17/19 19:00 06:19 09:50 WBC 8.2 RBC 3.49 L Hgb 10.2 L Hct 31.5 L MCV 90.4 MCH 29.3 MCHC 32.4 RDW 13.3 Plt Count 214 D MPV 9.2 Absolute Neuts (auto) 5.6 Neutrophils % 68.2 Lymphocytes % 18.7 Monocytes % 11.0 H Eosinophils % 1.6 D Basophils % 0.5 Nucleated RBC % 0 PT with INR INR PTT (Actin FS) VBG pH POC VBG pCO2 POC VBG pO2 VBG HCO3 VBG O2 Sat (Carol) VBG Base Excess Sodium Potassium Chloride Carbon Dioxide Anion Gap BUN Creatinine Est GFR (CKD-EPI)AfAm Est GFR (CKD-EPI)NonAf POC Glucometer 93 Random Glucose Lactic Acid Calcium Phosphorus Magnesium Total Bilirubin AST ALT Alkaline Phosphatase Troponin I Total Protein Albumin Urine Color [place] Urine Appearance Cloudy Urine pH 5.0 Ur Specific [place] 1.020 Urine Protein 2+ H Urine Glucose (UA) Trace Urine Ketones 1+ H Urine Blood 1+ H Urine Nitrite Positive Urine Bilirubin 3+ H Urine Urobilinogen >=8.0 e.u./dl H Ur Leukocyte Esterase 3+ H Urine WBC (Auto) >100 Urine RBC (Auto) 10-15 Urine Casts (Auto) 0 U Epithel Cells (Auto) 0-5 Urine Bacteria (Auto) Moderate 04/17/19 04/17/19 04/17/19 09:50 09:50 12:16 WBC RBC Hgb Hct MCV MCH MCHC RDW Plt Count MPV Absolute Neuts (auto) Neutrophils % Lymphocytes % Monocytes % Eosinophils % Basophils % Nucleated RBC % PT with INR INR PTT (Actin FS) VBG pH POC VBG pCO2 POC VBG pO2 VBG HCO3 VBG O2 Sat (Carol) VBG Base Excess Sodium 139 Potassium 3.8 Chloride 106 Carbon Dioxide 29 Anion Gap 4 L BUN 7.9 Creatinine 0.6 Est GFR (CKD-EPI)AfAm 125.80 Est GFR (CKD-EPI)NonAf 108.54 POC Glucometer 166 Random Glucose 132 H Lactic Acid 1.4 Calcium 8.0 L Phosphorus 3.0 Magnesium 1.8 Total Bilirubin 1.2 H AST 34 ALT 29 Alkaline Phosphatase 72 Troponin I Total Protein 7.2 Albumin 2.4 L Urine Color Urine Appearance Urine pH Ur Specific [place] Urine Protein Urine Glucose (UA) Urine Ketones Urine Blood Urine Nitrite Urine Bilirubin Urine Urobilinogen Ur Leukocyte Esterase Urine WBC (Auto) Urine RBC (Auto) Urine Casts (Auto) U Epithel Cells (Auto) Urine Bacteria (Auto) 04/17/19 17:38 WBC RBC Hgb Hct MCV MCH MCHC RDW Plt Count MPV Absolute Neuts (auto) Neutrophils % Lymphocytes % Monocytes % Eosinophils % Basophils % Nucleated RBC % PT with INR INR PTT (Actin FS) VBG pH POC VBG pCO2 POC VBG pO2 VBG HCO3 VBG O2 Sat (Carol) VBG Base Excess Sodium Potassium Chloride Carbon Dioxide Anion Gap BUN Creatinine Est GFR (CKD-EPI)AfAm Est GFR (CKD-EPI)NonAf POC Glucometer 90 Random Glucose Lactic Acid Calcium Phosphorus Magnesium Total Bilirubin AST ALT Alkaline Phosphatase Troponin I Total Protein Albumin Urine Color Urine Appearance Urine pH Ur Specific [place] Urine Protein Urine Glucose (UA) Urine Ketones Urine Blood Urine Nitrite Urine Bilirubin Urine Urobilinogen Ur Leukocyte Esterase Urine WBC (Auto) Urine RBC (Auto) Urine Casts (Auto) U Epithel Cells (Auto) Urine Bacteria (Auto) Microbiology 04/16/19 19:00 Leg - Right Lower Gram Stain - Final ASSESSMENT AND PLAN: 49 yof with PMHx of IVDU, NIDDM, MRSA infection, multiple wound infections at injection site, last in abdominal wall, comes with right calf swelling/pain/ fevers -Right calf abscess/Cellulitis/eschar, from IVDU -polysubstance use with cocaine/heroine/ETOH -Multiple prior wound infections at injection site, last in abdominal wall -NIDDM Plan: surgery input noted, s/p I&D/packing. Follow up wound/blood cx ID input noted, zosyn/vancomycin, 2D echo noted. Pain control tylenol/toradol Detox consult. ISS, hold metformin. Diabetic diet. DVTPPX lovenox Dispo pending clinical impovement.
[2019-04-17] MEDS ORDERED: PIPERACILLIN/TAZOB 3.375 GM 3.375 GM in DEXTROSE 5%-WATER - 50 ML IVPB SCH (18:00)
[2019-04-17] MEDS ORDERED: PIPERACILLIN/TAZOB 2.25 GM 2.25 GM in DEXTROSE 5%-WATER - 50 ML IVPB SCH (18:00)
[2019-04-17] MEDS ORDERED: PIPERACILLIN/TAZOBACTAM 3.375 GM VIAL IVPB ONE (18:06)
[2019-04-17] MEDS: PIPERACILLIN/TAZOB 3.375 GM 3.375 GM in DEXTROSE 5%-WATER - 50 ML IVPB SCH (18:27)
[2019-04-17] MEDS: ONDANSETRON 4 MG/2 ML VIAL IVPUSH PRN (21:30)
[2019-04-18] MEDS ORDERED: MAG HYDROX/AL HYDROX/SIMETH 30 ML UNIT-DOSE CUP PO ONE ×2 (00:23→15:30)
[2019-04-18] MEDS ORDERED: PIPERACILLIN/TAZOBACTAM 3.375 GM VIAL IVPB ONE ×3 (02:38→15:42)
[2019-04-18] MEDS ORDERED: DEXTROSE 5%-WATER - 50 ML IVPB ONE ×3 (02:39→15:42)
[2019-04-18] MEDS: ONDANSETRON 4 MG/2 ML VIAL IVPUSH PRN (02:45)
[2019-04-18] MEDS: KETOROLAC TROMETHAMINE 30 MG/1 ML VIAL IVPUSH PRN ×3 (02:45→21:01)
[2019-04-18] MEDS: PIPERACILLIN/TAZOB 3.375 GM 3.375 GM in DEXTROSE 5%-WATER - 50 ML IVPB SCH ×3 (02:45→17:02)
[2019-04-18] MEDS: SODIUM CHLORIDE 1,000 ML IV SCH ×2 (02:48→23:26)
[2019-04-18] MEDS: VANCOMYCIN 1 GRAM (PRE-DOCKED) 1,000 MG/250 ML BAG IVPB SCH ×2 (04:15→20:42)
[2019-04-18] MEDS: INSULIN SLIDING SCALE (NOVOLOG) 1 VIAL SQ SCH ×4 (06:47→21:38)
[2019-04-18 08:08] LABS: HEMATOCRIT 30.9 % (32.4-45.2); HEMOGLOBIN 10.1 GM/dL (10.7-15.3); MCH 29.2 pg (25.7-33.7); MCHC 32.6 g/dl (32.0-36.0); MEAN CELL VOLUME 89.8 fl (80-96); MEAN PLT VOLUME 8.9 fl (7.5-11.1); PLATELET COUNT 224 K/MM3 (134-434); RBC 3.44 M/mm3 (3.60-5.2); RDW 13.4 % (11.6-15.6)
[2019-04-18 08:21] LABS: ALBUMIN 2.3 g/dl (3.4-5.0); BILIRUBIN,TOTAL 0.8 mg/dL (0.2-1); BLOOD UREA NITROGEN 6.8 mg/dL (7-18); CALCIUM 7.9 mg/dL (8.5-10.1); POTASSIUM 3.4 mmol/L (3.5-5.1); TOT PROT 6.8 g/dl (6.4-8.2)
[2019-04-18] MEDS ORDERED: INSULIN (NOVOLOG) ASPART 100 UNITS/ML 10ML VIAL ONE (09:04)
[2019-04-18] MEDS ORDERED: POTASSIUM CHLORIDE TABS 20 MEQ TABLET.ER (FP) PO ONE (09:12)
[2019-04-18 09:49] LABS: MAGNESIUM 1.9 mg/dL (1.8-2.4); PHOSPHOROUS 3.9 mg/dL (2.5-4.9)
[2019-04-18] MEDS ORDERED: ONDANSETRON 4 MG/2 ML VIAL IVPUSH ONE (10:18)
--- NOTE | 2019-04-18 10:29 | PN ---
Physical Exam: SUBJECTIVE: Patient seen and examined. POD#1 s/p debridement and I&D of right leg abscess. Patient complains of nausea. Complained of stomach pain overnight, was given Mylanta with good effect. OBJECTIVE: Vital Signs Period Temp Pulse Resp BP Sys/Sweet Pulse Ox Last 24 Hr 73 F-99.8 F 68-88 14-20 109-128/68-78 98-100 GENERAL: The patient is awake, alert, and fully oriented, in no acute distress. HEAD: Normal with no signs of trauma. EYES: EOMI, no scleral icterus ENT: dry mucous membranes NECK: supple, full range of motion LUNGS: Breath sounds equal, clear to auscultation bilaterally, no wheezes, no crackles, no accessory muscle use. HEART: Regular rate and rhythm, S1, S2 without murmur, rub or gallop ABDOMEN: Soft, nontender, nondistended, normoactive bowel sounds, no guarding EXTREMITIES: 2+ pulses, warm. Multiple track woods noted on all extremities. Abscess of right calf s/p I&D with packing in place. No active drainage noted. Erythema and fluctuance improved compared to prior. NEUROLOGICAL: sensation intact throughout PSYCH: Normal mood, normal affect. SKIN: abscess as noted above on right calf. warm, dry. Laboratory Results - last 24 hr 04/17/04/17/19 04/17/19 09:50 09:50 09:50 WBC 8.2 RBC 3.49 L Hgb 10.2 L Hct 31.5 L MCV 90.4 MCH 29.3 MCHC 32.4 RDW 13.3 Plt Count 214 D MPV 9.2 Absolute Neuts (auto) 5.6 Neutrophils % 68.2 Lymphocytes % 18.7 Monocytes % 11.0 H Eosinophils % 1.6 D Basophils % 0.5 Nucleated RBC % 0 Sodium 139 Potassium 3.8 Chloride 106 Carbon Dioxide 29 Anion Gap 4 L BUN 7.9 Creatinine 0.6 Est GFR (CKD-EPI)AfAm 125.80 Est GFR (CKD-EPI)NonAf 108.54 POC Glucometer Random Glucose 132 H Hemoglobin A1c % Lactic Acid Calcium 8.0 L Phosphorus 3.0 Magnesium 1.8 Total Bilirubin 1.2 H AST 34 ALT 29 Alkaline Phosphatase 72 Total Protein 7.2 Albumin 2.4 L HIV 1&2 Ag/Ab, 4th Gen Non reactive HIV 1&2 Antibody Screen HIV P24 Antigen 04/17/19 04/17/19 04/17/19 09:50 12:16 17:38 WBC RBC Hgb Hct MCV MCH MCHC RDW Plt Count MPV Absolute Neuts (auto) Neutrophils % Lymphocytes % Monocytes % Eosinophils % Basophils % Nucleated RBC % Sodium Potassium Chloride Carbon Dioxide Anion Gap BUN Creatinine Est GFR (CKD-EPI)AfAm Est GFR (CKD-EPI)NonAf POC Glucometer 166 90 Random Glucose Hemoglobin A1c % Lactic Acid 1.4 Calcium Phosphorus Magnesium Total Bilirubin AST ALT Alkaline Phosphatase Total Protein Albumin HIV 1&2 Ag/Ab, 4th Gen HIV 1&2 Antibody Screen HIV P24 Antigen 04/17/19 04/18/19 04/18/19 21:23 05:31 06:35 WBC 7.0 RBC 3.44 L Hgb 10.1 L Hct 30.9 L MCV 89.8 MCH 29.2 MCHC 32.6 RDW 13.4 Plt Count 224 MPV 8.9 Absolute Neuts (auto) Neutrophils % Lymphocytes % Monocytes % Eosinophils % Basophils % Nucleated RBC % Sodium Potassium Chloride Carbon Dioxide Anion Gap BUN Creatinine Est GFR (CKD-EPI)AfAm Est GFR (CKD-EPI)NonAf POC Glucometer 130 160 Random Glucose Hemoglobin A1c % Lactic Acid Calcium Phosphorus Magnesium Total Bilirubin AST ALT Alkaline Phosphatase Total Protein Albumin HIV 1&2 Ag/Ab, 4th Gen HIV 1&2 Antibody Screen HIV P24 Antigen 04/18/19 04/18/19 04/18/19 06:35 06:35 06:35 WBC RBC Hgb Hct MCV MCH MCHC RDW Plt Count MPV Absolute Neuts (auto) Neutrophils % Lymphocytes % Monocytes % Eosinophils % Basophils % Nucleated RBC % Sodium 141 Potassium 3.4 L Chloride 107 Carbon Dioxide 28 Anion Gap 5 L BUN 6.8 L Creatinine 1.0 Est GFR (CKD-EPI)AfAm 77.69 Est GFR (CKD-EPI)NonAf 67.04 POC Glucometer Random Glucose 172 H Hemoglobin A1c % 7.7 H Lactic Acid Calcium 7.9 L Phosphorus 3.9 Magnesium 1.9 Total Bilirubin 0.8 AST 31 ALT 25 Alkaline Phosphatase 67 Total Protein 6.8 Albumin 2.3 L HIV 1&2 Ag/Ab, 4th Gen HIV 1&2 Antibody Screen Negative HIV P24 Antigen Negative Active Medications Generic Name Dose Route Start Last Admin Trade Name Freq PRN Reason Stop Dose Admin Acetaminophen 650 mg 04/18/19 09:13 Tylenol - PO Q6H PRN PAIN LEVEL 1-5 Albuterol Sulfate 1 amp 04/17/19 17:31 Ventolin 0.083% Nebulizer Soln - NEB Q4H PRN SHORT OF BREATH/WHEEZING Vancomycin HCl 1,000 mg in 250 mls @ 166.667 mls/hr 04/18/19 04:00 04/18/19 04:15 Vancomycin (Pre-Docked) IVPB 166.667 mls/hr Q12H PHILLIP Administration Protocol Piperacillin Sod/Tazobactam 50 mls @ 100 mls/hr 04/17/19 18:00 04/18/19 02:45 Sod 3.375 gm/ Dextrose IVPB 100 mls/hr Q8H-IV PHILLIP Administration Protocol Sodium Chloride 1,000 mls @ 100 mls/hr 04/17/19 17:45 04/18/19 02:48 Normal Saline - IV 100 mls/hr ASDIR PHILLIP Administration Insulin Aspart 1 vial 04/17/19 22:00 04/18/19 06:47 Novolog Vial Sliding Scale - SQ 2 units ACHS PHILLIP Administration Protocol Ketorolac Tromethamine 30 mg 04/17/19 17:59 04/18/19 02:45 Toradol Injection - IVPUSH 04/22/19 17:58 30 mg Q6H PRN Administration PAIN LEVEL 6-10 ASSESSMENT/PLAN: 49 y/o/f with PMHx of IVDU, IDDM, MRSA (August 2017), and asthma, who presents to the ED with a large abscess on her right calf. #Sepsis 2/2 right leg abscess - blood and urine cultures negative to date - WBC 7, continue to monitor - Continue Vanc/Zosyn - Ct of the legs cellulitis and ulceration without abscess but with potential muscle involvement - IVF - ECHO without evidence of vegetations or other significant pathology - Hx of MRSA. MRSA screen positive in left nare - surgery consulted - POD#1 for debridement and I&D of right calf abscess. - follow wound care recs - ID consulted, follow recs - Zofran PRN for nausea #Lactic Acidosis - likely 2/2 to sepsis - normalized #Abnormal LFTs - active alcohol drinker, IVDU - LFTs normalized, will continue to follow - Hep serology pending - HIV test negative #DM - ISS - BGM #Asthma - Nebs Q4hr PRN #Alcohol use disorder - Ativan PRN #FEN - LR @75mls/hr - monitor and replete lytes as needed #DVTPPX - Holding Lovenox, will resume as per surgery #Disposition - POD#1 for debridement and I&D of right calf abscess - Patient open to going to rehab when ready for D/C Visit type - Emergency Visit Emergency Visit: Yes ED Registration Date: 04/16/19 Care time: The patient presented to the Emergency Department on the above date and was hospitalized for further evaluation of their emergent condition. - New Patient This patient is new to me today: No - Critical Care Critical Care patient: No ATTENDING PHYSICIAN STATEMENT I saw and evaluated the patient. I reviewed the resident's note and discussed the case with the resident. I agree with the resident's findings and plan as documented. SUBJECTIVE: OBJECTIVE: ASSESSMENT AND PLAN:
--- NOTE | 2019-04-18 11:08 | PN ---
Teaching Attending Note Name of Resident: Andrea Vargas ATTENDING PHYSICIAN STATEMENT I saw and evaluated the patient. I reviewed the resident's note and discussed the case with the resident. I agree with the resident's findings and plan as documented with exceptions below. SUBJECTIVE: Patient seen and examined, no pain or complaints currently, minimal participation in interview. OBJECTIVE: Vital Signs Period Temp Pulse Resp BP Sys/Sweet Pulse Ox Last 24 Hr 73 F-99.8 F 68-88 14-20 109-128/68-78 98-100 Intake & Output 04/15/19 04/16/19 04/17/19 04/18/19 23:59 23:59 23:59 23:59 Intake Total 1999 1250 1430 Output Total 10 Balance 1999 1240 1430 Weight 120 lb 147 lb 2 oz General: lying in bed, no acute distress Chest; CTA, no rales or wheezing Abdomen: soft, NT Extremities: right calf wound with packing, sanguinous soaking, surrounding erythema/edema markedly improved, fluctation improved, Home Medications Medication Instructions Recorded Albuterol Sulfate Inhaler - 2 inh IH Q4H PRN #1 inh 12/08/11 [Ventolin HFA Inhaler -] metFORMIN HCL [Glucophage -] 500 mg PO BID #60 tablet 11/11/14 traZODone HCL [Desyrel -] 50 mg PO HS #30 tablet 12/05/14 Metformin HCl [Glucophage] 1,000 mg PO BID #60 tablet 12/09/14 Clindamycin [Cleocin -] 450 mg PO TID #21 capsule 09/13/17 Active Medications Acetaminophen (Tylenol -) 650 mg PO Q6H PRN PRN Reason: PAIN LEVEL 1-5 Albuterol Sulfate (Ventolin 0.083% Nebulizer Soln -) 1 amp NEB Q4H PRN PRN Reason: SHORT OF BREATH/WHEEZING Vancomycin HCl (Vancomycin (Pre-Docked)) 1,000 mg in 250 mls @ 166.667 mls/hr IVPB Q12H [facility]; Protocol Last Admin: 04/18/19 04:15 Dose: 166.667 mls/hr Piperacillin Sod/Tazobactam (Sod 3.375 gm/ Dextrose) 50 mls @ 100 mls/hr IVPB Q8H-IV [facility]; Protocol Last Admin: 04/18/19 10:18 Dose: 100 mls/hr Sodium Chloride (Normal Saline -) 1,000 mls @ 100 mls/hr IV ASDIR [facility] Last Admin: 04/18/19 02:48 Dose: 100 mls/hr Insulin Aspart (Novolog Vial Sliding Scale -) 1 vial SQ ACHS [facility]; Protocol Last Admin: 04/18/19 06:47 Dose: 2 units Ketorolac Tromethamine (Toradol Injection -) 30 mg IVPUSH Q6H PRN PRN Reason: PAIN LEVEL 6-10 Stop: 04/22/19 17:58 Last Admin: 04/18/19 10:43 Dose: 30 mg Laboratory Results - last 24 hr 04/17/19 04/17/19 04/17/19 09:50 09:50 12:16 WBC RBC Hgb Hct MCV MCH MCHC RDW Plt Count MPV Sodium 139 Potassium 3.8 Chloride 106 Carbon Dioxide 29 Anion Gap 4 L BUN 7.9 Creatinine 0.6 Est GFR (CKD-EPI)AfAm 125.80 Est GFR (CKD-EPI)NonAf 108.54 POC Glucometer 166 Random Glucose 132 H Hemoglobin A1c % Calcium 8.0 L Phosphorus 3.0 Magnesium 1.8 Total Bilirubin 1.2 H AST 34 ALT 29 Alkaline Phosphatase 72 Total Protein 7.2 Albumin 2.4 L HIV 1&2 Ag/Ab, 4th Gen Non reactive HIV 1&2 Antibody Screen HIV P24 Antigen 04/17/19 04/17/19 04/18/19 17:38 21:23 05:31 WBC RBC Hgb Hct MCV MCH MCHC RDW Plt Count MPV Sodium Potassium Chloride Carbon Dioxide Anion Gap BUN Creatinine Est GFR (CKD-EPI)AfAm Est GFR (CKD-EPI)NonAf POC Glucometer 90 130 160 Random Glucose Hemoglobin A1c % Calcium Phosphorus Magnesium Total Bilirubin AST ALT Alkaline Phosphatase Total Protein Albumin HIV 1&2 Ag/Ab, 4th Gen HIV 1&2 Antibody Screen HIV P24 Antigen 04/18/19 04/18/19 04/18/19 06:35 06:35 06:35 WBC 7.0 RBC 3.44 L Hgb 10.1 L Hct 30.9 L MCV 89.8 MCH 29.2 MCHC 32.6 RDW 13.4 Plt Count 224 MPV 8.9 Sodium 141 Potassium 3.4 L Chloride 107 Carbon Dioxide 28 Anion Gap 5 L BUN 6.8 L Creatinine 1.0 Est GFR (CKD-EPI)AfAm 77.69 Est GFR (CKD-EPI)NonAf 67.04 POC Glucometer Random Glucose 172 H Hemoglobin A1c % 7.7 H Calcium 7.9 L Phosphorus 3.9 Magnesium 1.9 Total Bilirubin 0.8 AST 31 ALT 25 Alkaline Phosphatase 67 Total Protein 6.8 Albumin 2.3 L HIV 1&2 Ag/Ab, 4th Gen HIV 1&2 Antibody Screen HIV P24 Antigen 04/18/19 06:35 WBC RBC Hgb Hct MCV MCH MCHC RDW Plt Count MPV Sodium Potassium Chloride Carbon Dioxide Anion Gap BUN Creatinine Est GFR (CKD-EPI)AfAm Est GFR (CKD-EPI)NonAf POC Glucometer Random Glucose Hemoglobin A1c % Calcium Phosphorus Magnesium Total Bilirubin AST ALT Alkaline Phosphatase Total Protein Albumin HIV 1&2 Ag/Ab, 4th Gen HIV 1&2 Antibody Screen Negative HIV P24 Antigen Negative Microbiology 04/16/19 19:00 Leg - Right Lower Gram Stain - Final 04/16/19 19:00 Leg - Right Lower Wound Culture - Preliminary Pending Organism 04/17/19 10:00 Nares - Left Nares MRSA Screen - Final Mr S Aureus 04/17/19 10:00 Nares - Mrsa Screen - Right MRSA Screen - Final NO MRSA ISOLATED 04/16/19 19:00 Urine - Urine Clean Catch Urine Culture - Final NO GROWTH OBTAINED 04/16/19 18:40 Blood - Peripheral Venous Blood Culture - Preliminary NO GROWTH OBTAINED AFTER 24 HOURS, INCUBATION TO CONTINUE FOR 4 DAYS. 04/16/19 18:14 Blood - Peripheral Venous Blood Culture - Preliminary NO GROWTH OBTAINED AFTER 24 HOURS, INCUBATION TO CONTINUE FOR 4 DAYS. Laboratory Results - last 24 hr 04/17/19 04/17/19 04/17/19 09:50 09:50 12:16 WBC RBC Hgb Hct MCV MCH MCHC RDW Plt Count MPV Sodium 139 Potassium 3.8 Chloride 106 Carbon Dioxide 29 Anion Gap 4 L BUN 7.9 Creatinine 0.6 Est GFR (CKD-EPI)AfAm 125.80 Est GFR (CKD-EPI)NonAf 108.54 POC Glucometer 166 Random Glucose 132 H Hemoglobin A1c % Calcium 8.0 L Phosphorus 3.0 Magnesium 1.8 Total Bilirubin 1.2 H AST 34 ALT 29 Alkaline Phosphatase 72 Total Protein 7.2 Albumin 2.4 L HIV 1&2 Ag/Ab, 4th Gen Non reactive HIV 1&2 Antibody Screen HIV P24 Antigen 04/17/19 04/17/19 04/18/19 17:38 21:23 05:31 WBC RBC Hgb Hct MCV MCH MCHC RDW Plt Count MPV Sodium Potassium Chloride Carbon Dioxide Anion Gap BUN Creatinine Est GFR (CKD-EPI)AfAm Est GFR (CKD-EPI)NonAf POC Glucometer 90 130 160 Random Glucose Hemoglobin A1c % Calcium Phosphorus Magnesium Total Bilirubin AST ALT Alkaline Phosphatase Total Protein Albumin HIV 1&2 Ag/Ab, 4th Gen HIV 1&2 Antibody Screen HIV P24 Antigen 04/18/19 04/18/19 04/18/19 06:35 06:35 06:35 WBC 7.0 RBC 3.44 L Hgb 10.1 L Hct 30.9 L MCV 89.8 MCH 29.2 MCHC 32.6 RDW 13.4 Plt Count 224 MPV 8.9 Sodium 141 Potassium 3.4 L Chloride 107 Carbon Dioxide 28 Anion Gap 5 L BUN 6.8 L Creatinine 1.0 Est GFR (CKD-EPI)AfAm 77.69 Est GFR (CKD-EPI)NonAf 67.04 POC Glucometer Random Glucose 172 H Hemoglobin A1c % 7.7 H Calcium 7.9 L Phosphorus 3.9 Magnesium 1.9 Total Bilirubin 0.8 AST 31 ALT 25 Alkaline Phosphatase 67 Total Protein 6.8 Albumin 2.3 L HIV 1&2 Ag/Ab, 4th Gen HIV 1&2 Antibody Screen HIV P24 Antigen 04/18/19 06:35 WBC RBC Hgb Hct MCV MCH MCHC RDW Plt Count MPV Sodium Potassium Chloride Carbon Dioxide Anion Gap BUN Creatinine Est GFR (CKD-EPI)AfAm Est GFR (CKD-EPI)NonAf POC Glucometer Random Glucose Hemoglobin A1c % Calcium Phosphorus Magnesium Total Bilirubin AST ALT Alkaline Phosphatase Total Protein Albumin HIV 1&2 Ag/Ab, 4th Gen HIV 1&2 Antibody Screen Negative HIV P24 Antigen Negative Microbiology 04/16/19 19:00 Leg - Right Lower Gram Stain - Final 04/16/19 19:00 Leg - Right Lower Wound Culture - Preliminary Pending Organism 04/17/19 10:00 Nares - Left Nares MRSA Screen - Final Mr S Aureus 04/17/19 10:00 Nares - Mrsa Screen - Right MRSA Screen - Final NO MRSA ISOLATED 04/16/19 19:00 Urine - Urine Clean Catch Urine Culture - Final NO GROWTH OBTAINED 04/16/19 18:40 Blood - Peripheral Venous Blood Culture - Preliminary NO GROWTH OBTAINED AFTER 24 HOURS, INCUBATION TO CONTINUE FOR 4 DAYS. 04/16/19 18:14 Blood - Peripheral Venous Blood Culture - Preliminary NO GROWTH OBTAINED AFTER 24 HOURS, INCUBATION TO CONTINUE FOR 4 DAYS. ASSESSMENT AND PLAN: 49 yof with PMHx of IVDU, NIDDM, MRSA infection, multiple wound infections at injection site, last in abdominal wall, comes with right calf swelling/pain/ fevers -Right calf abscess/Cellulitis/eschar, from IVDU s/p I&D/packing 04/17 -polysubstance use with cocaine/heroine/ETOH -Multiple prior wound infections at injection site, last in abdominal wall -NIDDM Plan: Wound care/packing per surgery Clinically improved, Afebrile, normal WBC. Wound cx with GNB. MRSA screen pos Zosyn/vanco, taper per cultures and clinical course. surgery input noted, s/p I&D/packing. Follow up wound/blood cx ID input noted, zosyn/vancomycin, taper per cultures. 2D echo noted. Pain control tylenol/toradol Detox consult. ISS, hold metformin. Diabetic diet. DVTPPX lovenox Dispo pending clinical impovement. Discussed with patient and nursing.
--- NOTE | 2019-04-18 11:21 | PN ---
Progress Note, Physician History of Present Illness: 49 yr old female with recurrent soft tissue infection in the lower extremity - Current Medication List Current Medications: Active Medications Acetaminophen (Tylenol -) 650 mg PO Q6H PRN PRN Reason: PAIN LEVEL 1-5 Albuterol Sulfate (Ventolin 0.083% Nebulizer Soln -) 1 amp NEB Q4H PRN PRN Reason: SHORT OF BREATH/WHEEZING Vancomycin HCl (Vancomycin (Pre-Docked)) 1,000 mg in 250 mls @ 166.667 mls/hr IVPB Q12H [facility]; Protocol Last Admin: 04/18/19 04:15 Dose: 166.667 mls/hr Piperacillin Sod/Tazobactam (Sod 3.375 gm/ Dextrose) 50 mls @ 100 mls/hr IVPB Q8H-IV [facility]; Protocol Last Admin: 04/18/19 10:18 Dose: 100 mls/hr Sodium Chloride (Normal Saline -) 1,000 mls @ 100 mls/hr IV [facility] Last Admin: 04/18/19 02:48 Dose: 100 mls/hr Insulin Aspart (Novolog Vial Sliding Scale -) 1 vial SQ ACHS [facility]; Protocol Last Admin: 04/18/19 06:47 Dose: 2 units Ketorolac Tromethamine (Toradol Injection -) 30 mg IVPUSH Q6H PRN PRN Reason: PAIN LEVEL 6-10 Stop: 04/22/19 17:58 Last Admin: 04/18/19 10:43 Dose: 30 mg - Objective Vital Signs: Vital Signs Temperature 98.0 F 04/18/19 08:00 Pulse Rate 72 04/18/19 08:00 Respiratory Rate 17 04/18/19 08:00 Blood Pressure 114/69 04/18/19 08:00 O2 Sat by Pulse Oximetry (%) 99 04/17/19 18:11 Labs: CBC, BMP 04/18/19 06:35 04/18/19 06:35 INR, PTT INR 1.16 (0.83-1.09) H 04/16/19 18:40 Problem List - Problems (1) Cellulitis Code(s): L03.90 - CELLULITIS, UNSPECIFIED Assessment/Plan s/p debridement and irrigation of RLE soft tissue infection Clinically improved continue with daily wet to dry dressing changes daily plastic surgery Consultation
[2019-04-18] MEDS ORDERED: MAG HYDROX/AL HYDROX/SIMETH -MYLANTA- ORAL SUSPENSION PO ONE (15:14)
[2019-04-19] MEDS ORDERED: DEXTROSE 5%-WATER - 50 ML IVPB ONE ×2 (02:37→09:57)
[2019-04-19] MEDS ORDERED: PIPERACILLIN/TAZOBACTAM 3.375 GM VIAL IVPB ONE ×2 (02:37→09:57)
[2019-04-19] MEDS: PIPERACILLIN/TAZOB 3.375 GM 3.375 GM in DEXTROSE 5%-WATER - 50 ML IVPB SCH ×2 (03:00→10:04)
[2019-04-19] MEDS: KETOROLAC TROMETHAMINE 30 MG/1 ML VIAL IVPUSH PRN ×2 (03:18→17:20)
[2019-04-19] MEDS: VANCOMYCIN 1 GRAM (PRE-DOCKED) 1,000 MG/250 ML BAG IVPB SCH ×2 (04:59→16:19)
[2019-04-19] MEDS ORDERED: MAG HYDROX/AL HYDROX/SIMETH 30 ML UNIT-DOSE CUP PO ONE (05:37)
[2019-04-19] MEDS: INSULIN SLIDING SCALE (NOVOLOG) 1 VIAL SQ SCH ×4 (06:02→21:17)
[2019-04-19] MEDS: ACETAMINOPHEN 325 MG TABLET (FP) PO PRN (07:16)
[2019-04-19] MEDS ORDERED: METHADONE HCL 10 MG TABLET PO ONE (08:34)
[2019-04-19] MEDS ORDERED: ONDANSETRON 4 MG/2 ML VIAL IVPUSH ONE (08:35)
--- NOTE | 2019-04-19 10:00 | PN ---
Progress Note (short form) - Note Progress Note: POD 2, s/p debridment and irrigation and packing right lower extremity Pt seen and examined. Reports she is having n/v overnight due to drug withdrawal. Has not been oob due to pain in rle. Voiding. Denies cp/sob. Vital Signs Temp 97.9 F 04/19/19 06:57 Pulse 55 L 04/19/19 06:57 Resp 19 04/19/19 06:57 BP 134/66 04/19/19 06:57 Pulse Ox 99 04/18/19 09:00 Intake & Output 04/18/19 04/18/19 04/19/19 11:59 23:59 11:59 Intake Total 1430 1320 177 Balance 1430 1320 177 Intake: IV 900 700 Normal Saline - 1,000 ml 900 700 @ 100 mls/hr IV ASDIR [facility] Rx#:[id number] IVPB 300 100 Oral 230 520 177 Other: Voiding Method Toilet Toilet Bowel Movement No CBC, BMP 04/18/19 06:35 04/18/19 06:35 Gen: awake, alert, nad Resp: Unlabored on RA Ext: RLE with large wound approx 10x9cm, wound bed clean with minimal undermining, no purulent drainage expressed. Minimal ttp. Surrounding skin with hyperkeratotic tissue, scaling. No erythema noted, no foul odor. A/P: 49 y/o F w/ PMHx IVDU, IDDM, MRSA (August 2017), and asthma, admitted for a 4 day history of right leg abscess. Pt is a poor historian. Pt reports ulcer began in December after injecting cocaine into a vessel in her leg, now POD 2, s/p debridment and irrigation and packing right lower extremity. Wound stable. Afebrile, no lekocytosis MRSA + in nares Wound culture pending Plastic consult pending though pt refusing skin grafting or further surgery for RLE. D/W pt risk of further infection/possible limb loss if wound remains open and uncared for, pt reports she is not concerned and "it will heal by itself". Abx per ID F/U wound culture Daily dressing changes with damp to dry and kerlix d/w attending Dr Wilder
[2019-04-19] MEDS: FAMOTIDINE 20 MG/50 ML IVPB 20 MG/50 ML MG IVPB SCH ×2 (10:43→21:17)
--- NOTE | 2019-04-19 13:24 | PN ---
Teaching Attending Note Name of Resident: Andrea Vargas ATTENDING PHYSICIAN STATEMENT I saw and evaluated the patient. I reviewed the resident's note and discussed the case with the resident. I agree with the resident's findings and plan as documented with exceptions below. SUBJECTIVE: Patient seen and examined. reports epigastric burning. right leg pain well controlled. Earlier reported diaphoresis, anxiety and cramps. OBJECTIVE: Vital Signs Period Temp Pulse Resp BP Sys/Sweet Pulse Ox Last 24 Hr 97.9 F-98.2 F 54-70 18-19 122-148/66-84 100 Intake & Output 04/16/19 04/17/19 04/18/19 04/19/19 23:59 23:59 23:59 23:59 Intake Total 1999 1250 2750 277 Output Total Balance 1999 1240 2750 277 Weight 120 lb 147 lb 2 oz General: lying in bed, mild distress from pain Chest: CTAB, no rales or wheezing Abdomen: soft, NT pos bowel sounds Extremities: right calf dressing(just changed by surgical PA), no surrounding swelling or erythema, further exam deferred currently Home Medications Medication Instructions Recorded Albuterol Sulfate Inhaler - 2 inh IH Q4H PRN #1 inh 12/08/11 [Ventolin HFA Inhaler -] metFORMIN HCL [Glucophage -] 500 mg PO BID #60 tablet 11/11/14 traZODone HCL [Desyrel -] 50 mg PO HS #30 tablet 12/05/14 Metformin HCl [Glucophage] 1,000 mg PO BID #60 tablet 12/09/14 Clindamycin [Cleocin -] 450 mg PO TID #21 capsule 09/13/17 Active Medications Acetaminophen (Tylenol -) 650 mg PO Q6H PRN PRN Reason: PAIN LEVEL 1-5 Last Admin: 04/19/19 07:16 Dose: 650 mg Albuterol Sulfate (Ventolin 0.083% Nebulizer Soln -) 1 amp NEB Q4H PRN PRN Reason: SHORT OF BREATH/WHEEZING Vancomycin HCl (Vancomycin (Pre-Docked)) 1,000 mg in 250 mls @ 166.667 mls/hr IVPB Q12H [facility]; Protocol Last Admin: 04/19/19 04:59 Dose: 166.667 mls/hr Piperacillin Sod/Tazobactam (Sod 3.375 gm/ Dextrose) 50 mls @ 100 mls/hr IVPB Q8H-IV [facility]; Protocol Last Admin: 04/19/19 10:04 Dose: 100 mls/hr Sodium Chloride (Normal Saline -) 1,000 mls @ 100 mls/hr IV [facility] Last Admin: 04/18/19 23:26 Dose: Not Given Famotidine/Sodium Chloride (Pepcid 20 Mg Premixed Ivpb -) 20 mg in 50 mls @ 100 mls/hr IVPB BID [facility] Last Admin: 04/19/19 10:43 Dose: 100 mls/hr Insulin Aspart (Novolog Vial Sliding Scale -) 1 vial SQ ACHS [facility]; Protocol Last Admin: 04/19/19 11:38 Dose: Not Given Ketorolac Tromethamine (Toradol Injection -) 30 mg IVPUSH Q6H PRN PRN Reason: PAIN LEVEL 6-10 Stop: 04/22/19 17:58 Last Admin: 04/19/19 03:18 Dose: 30 mg Methadone HCl (Dolophine -) 15 mg PO ONCE ONE Stop: 04/20/19 10:01 Methadone HCl (Dolophine -) 10 mg PO ONCE ONE Stop: 04/21/19 10:01 Methadone HCl (Dolophine -) 5 mg PO ONCE ONE Stop: 04/22/19 06:01 Laboratory Results - last 24 hr 04/18/19 04/18/19 04/18/19 16:47 17:30 21:36 POC Glucometer 103 183 Vancomycin Pre-Dose 14.2 L 04/19/19 04/19/19 05:25 11:36 POC Glucometer 137 156 Vancomycin Pre-Dose Microbiology 04/16/19 19:00 Leg - Right Lower Gram Stain - Final 04/16/19 19:00 Leg - Right Lower Wound Culture - Preliminary Staphylococcus Latex Coag Pos Staphylococcus Coagulase Neg 04/16/19 18:40 Blood - Peripheral Venous Blood Culture - Preliminary NO GROWTH OBTAINED AFTER 48 HOURS, INCUBATION TO CONTINUE FOR 3 DAYS. 04/16/19 18:14 Blood - Peripheral Venous Blood Culture - Preliminary NO GROWTH OBTAINED AFTER 48 HOURS, INCUBATION TO CONTINUE FOR 3 DAYS. 04/17/19 10:00 Nares - Left Nares MRSA Screen - Final Mr S Aureus 04/17/19 10:00 Nares - Mrsa Screen - Right MRSA Screen - Final NO MRSA ISOLATED 04/16/19 19:00 Urine - Urine Clean Catch Urine Culture - Final NO GROWTH OBTAINED ASSESSMENT AND PLAN: 49 yof with PMHx of IVDU, NIDDM, MRSA infection, multiple wound infections at injection site, last in abdominal wall, comes with right calf swelling/pain/ fevers -Right calf abscess/Cellulitis/eschar, from IVDU s/p I&D/packing 04/17 -polysubstance use with cocaine/heroine/ETOH -Opioid withdrawal -Epigastric burning, GERD vs abx mediated dyspepsia, vs opioid withdrawal -Multiple prior wound infections at injection site, last in abdominal wall -NIDDM Plan: Surgery input noted. wound clean. Dressing changes as directed Plastic surgery consult Dr. Ching. Will follow up if candidate for wound vac. ID input noted. Wound cx noted. Blood cx neg so far. Zosyn/vancomycin, continue for now. Vanco levels noted. Afebrile, normal WBC. Start methadone detox for opioid withdrawal Detox co nsult. Pepcid/Maalox. 2D echo noted. Pain control tylenol/toradol ISS, hold metformin. Diabetic diet. DVTPPX lovenox Dispo pending clinical impovement. May need SNF based on clinical course and wound care needs. Discussed with patient and social work.
--- NOTE | 2019-04-19 14:41 | PN ---
Physical Exam: SUBJECTIVE: Patient seen and examined. Complaining of stomach pain, joint pain, agitation, nausea, vomiting. Concerning for drug withdrawal. Patient states she has been on suboxone and methadone in the past for withdrawal with improvement. Denies chest pain, SOB, headache. OBJECTIVE: Vital Signs Period Temp Pulse Resp BP Sys/Sweet Pulse Ox Last 24 Hr 97.9 F-98.3 F 53-70 18-19 122-148/66-84 100 GENERAL: The patient is awake, alert, and fully oriented, moderate distress. COWS score 13 HEAD: Normal with no signs of trauma. EYES: EOMI, no scleral icterus ENT: dry mucous membranes NECK: Trachea midline, full range of motion, supple. LUNGS: Breath sounds equal, clear to auscultation bilaterally, no wheezes, no crackles, no accessory muscle use. HEART: Regular rate and rhythm, S1, S2 without murmur, rub or gallop. ABDOMEN: soft, nondistended. diffuse tenderness to palpation over abd EXTREMITIES: RLE wound approximately 10x9cm, wound clean without purulent drainage, erythema, or foul odor NEUROLOGICAL: normal speech, gait not observed. sensation intact throughout PSYCH: agitated, anxious SKIN: Warm, dry, normal turgor Laboratory Results - last 24 hr 04/18/19 04/18/19 04/18/19 16:47 17:30 21:36 POC Glucometer 103 183 Vancomycin Pre-Dose 14.2 L 04/19/19 04/19/19 05:25 11:36 POC Glucometer 137 156 Vancomycin Pre-Dose Active Medications Generic Name Dose Route Start Last Admin Trade Name Freq PRN Reason Stop Dose Admin Acetaminophen 650 mg 04/18/19 09:13 04/19/19 07:16 Tylenol - PO 650 mg Q6H PRN Administration PAIN LEVEL 1-5 Albuterol Sulfate 1 amp 04/17/19 17:31 Ventolin 0.083% Nebulizer Soln - NEB Q4H PRN SHORT OF BREATH/WHEEZING Vancomycin HCl 1,000 mg in 250 mls @ 166.667 mls/hr 04/18/19 04:00 04/19/19 04:59 Vancomycin (Pre-Docked) IVPB 166.667 mls/hr Q12H [facility] Administration Protocol Piperacillin Sod/Tazobactam 50 mls @ 100 mls/hr 04/17/19 18:00 04/19/19 10:04 Sod 3.375 gm/ Dextrose IVPB 100 mls/hr Q8H-IV [facility] Administration Protocol Sodium Chloride 1,000 mls @ 100 mls/hr 04/17/19 17:45 04/18/19 23:26 Normal Saline - IV Not Given ASDIR [facility] Famotidine/Sodium Chloride 20 mg in 50 mls @ 100 mls/hr 04/19/19 10:30 10:43 Pepcid 20 Mg Premixed Ivpb - IVPB 100 mls/hr BID [facility] Administration Insulin Aspart 1 vial 04/17/19 22:00 04/19/19 11:38 Novolog Vial Sliding Scale - SQ Not Given ACHS [facility] Protocol Ketorolac Tromethamine 30 mg 04/17/19 17:59 04/19/19 03:18 Toradol Injection - IVPUSH 04/22/19 17:58 30 mg Q6H PRN Administration PAIN LEVEL 6-10 Methadone HCl 15 mg 04/20/19 10:00 Dolophine - PO 04/20/19 10:01 ONCE ONE Methadone HCl 10 mg 04/21/19 10:00 Dolophine - PO 04/21/19 10:01 ONCE ONE Methadone HCl 5 mg 04/22/19 06:00 Dolophine - PO 04/22/19 06:01 ONCE ONE ASSESSMENT/PLAN: 49 y/o/f with PMHx of IVDU, IDDM, MRSA (August 2017), and asthma, who presents to the ED with a large abscess on her right calf. POD#2 from debridement and I&D of right calf abscess. #Sepsis 2/2 right leg abscess - blood and urine cultures negative to date - WBC normalized, refused labs today - Continue Vanc/Zosyn - Ct of the legs cellulitis and ulceration without abscess but with potential muscle involvement - IVF - ECHO without evidence of vegetations or other significant pathology - Hx of MRSA. MRSA screen positive in left nare - surgery consulted - POD#2 for debridement and I&D of right calf abscess. - continue with daily wet to dry dressing changes daily - Plastics consulted - Likely will not close wound due to recent I&D procedure. Recommend when patient is ready for D/C to send out on Silvadine cream BID and wound clinic follow up. - ID consulted, follow recs - Zofran PRN for nausea #Drug withdrawal - Hx of Heroin, cocaine, alcohol use - COWS score 13 - Started on Methadone taper - addiction medicine consulted #Lactic Acidosis - likely 2/2 to sepsis - normalized #Abnormal LFTs - active alcohol drinker, IVDU - LFTs normalized, will continue to follow - Hep serology pending - HIV test negative #DM - ISS - BGM #Asthma - Nebs Q4hr PRN #Alcohol use disorder - Ativan PRN #FEN - NS @100mls/hr - monitor and replete lytes as needed #DVTPPX - Holding Lovenox, will resume as per surgery #Disposition - POD#2 for debridement and I&D of right calf abscess - Patient open to going to rehab when ready for D/C Visit type - Emergency Visit Emergency Visit: Yes ED Registration Date: 04/16/19 Care time: The patient presented to the Emergency Department on the above date and was hospitalized for further evaluation of their emergent condition. - New Patient This patient is new to me today: No - Critical Care Critical Care patient: No ATTENDING PHYSICIAN STATEMENT I saw and evaluated the patient. I reviewed the resident's note and discussed the case with the resident. I agree with the resident's findings and plan as documented. SUBJECTIVE: OBJECTIVE: ASSESSMENT AND PLAN:
[2019-04-19] MEDS: SODIUM CHLORIDE 1,000 ML IV SCH ×2 (16:19→17:49)
[2019-04-19 21:07] LABS: HEP B CORE AB, TOT Positive (Negative)
[2019-04-19] MEDS ORDERED: INSULIN (NOVOLOG) ASPART 100 UNITS/ML 10ML VIAL ONE (21:10)
[2019-04-20] MEDS: VANCOMYCIN 1 GRAM (PRE-DOCKED) 1,000 MG/250 ML BAG IVPB SCH ×2 (03:47→17:09)
[2019-04-20] MEDS: SODIUM CHLORIDE 1,000 ML IV SCH ×2 (06:20→17:48)
[2019-04-20] MEDS: INSULIN SLIDING SCALE (NOVOLOG) 1 VIAL SQ SCH ×4 (06:27→21:24)
[2019-04-20] MEDS ORDERED: ONDANSETRON 4 MG/2 ML VIAL IVPUSH ONE (08:38)
[2019-04-20] MEDS: KETOROLAC TROMETHAMINE 30 MG/1 ML VIAL IVPUSH PRN (09:01)
[2019-04-20 09:16] LABS: BASO % 0.4 % (0-2.0); EOS % 1.1 % (0-4.5); HEMATOCRIT 28.7 % (32.4-45.2); HEMOGLOBIN 9.5 GM/dL (10.7-15.3); LYMPH % 29.7 % (8-40); MCH 29.5 pg (25.7-33.7); MCHC 32.9 g/dl (32.0-36.0); MEAN CELL VOLUME 89.6 fl (80-96); MONO % 9.7 % (3.8-10.2); NEUT % 59.1 % (42.8-82.8); PLATELET COUNT 250 K/MM3 (134-434); RBC 3.21 M/mm3 (3.60-5.2)
[2019-04-20 09:37] LABS: BLOOD UREA NITROGEN 9.5 mg/dL (7-18); CALCIUM 8.2 mg/dL (8.5-10.1); CREATININE 1.3 mg/dL (0.55-1.3); POTASSIUM 3.5 mmol/L (3.5-5.1)
[2019-04-20] MEDS ORDERED: METHADONE HCL 5 MG TABLET PO ONE (10:00)
[2019-04-20] MEDS: FAMOTIDINE 20 MG/50 ML IVPB 20 MG/50 ML MG IVPB SCH ×2 (10:33→21:24)
[2019-04-20] MEDS: METOCLOPRAMIDE HCL INJECTION 10 MG/2 ML VIAL IVPUSH SCH ×2 (12:04→17:09)
--- NOTE | 2019-04-20 12:57 | PATH ---
Surgical Pathology Report Patient Name: CLEOPATRA SENA Med. Rec. #: [id number] /Age/Gender: 1970 (Age: 49) / F Account: [id number] Location: [address] [place] [address] Taken: 04/17/2019 Received: 04/19/2019 Reported: 04/20/2019 Physicians: Britni Hess MD Specimen(s) Received SKIN AND TISSUE, LOWER EXTREMITY, RIGHT Clinical History Right lower extremity abscess Final Diagnosis SKIN AND TISSUE, LOWER EXTREMITY, RIGHT, DEBRIDEMENT: SUBCUTANEOUS TISSUE WITH MARKED ACUTE INFLAMMATION AND REACTIVE CHANGES. Electronically Signed Nancy Robin M.D. Gross Description Received in formalin labeled "debrided skin and tissue from right lower extremity," is a 5.5 x 4.8 x 0.5 cm aggregate of mensah, necrotic portions of skin with underlying soft tissue. Hand Hardener sections are submitted in one cassette. /[facility]
--- NOTE | 2019-04-20 13:25 | PN ---
Teaching Attending Note Name of Resident: Andrea Vargas ATTENDING PHYSICIAN STATEMENT I saw and evaluated the patient. I reviewed the resident's note and discussed the case with the resident. I agree with the resident's findings and plan as documented with exceptions below. SUBJECTIVE: patient seen and examined. denies any stomach cramps. right leg pain well controlled, calmer today. OBJECTIVE: Vital Signs Period Temp Pulse Resp BP Sys/Sweet Pulse Ox Last 24 Hr 97.9 F-98.4 F 53-82 18-18 114-150/57-90 100 Intake & Output 04/17/19 04/18/19 04/19/19 04/20/19 23:59 23:59 23:59 23:59 Intake Total 1250 2750 767 320 Output Total 10 Balance 1240 2750 767 320 Weight 147 lb 2 oz General: sitting in bed in no acute distress neck; soft chest:CTAb, no rales or wheezing Abdomen:Soft, NT throughout Extremities: right calf large wound [id number], wound bed clean with minimal undermining, no purulent drainage expressed. Minimal ttp. Surrounding skin with hyperkeratotic tissue, scaling. No erythema noted, no foul odor. Home Medications Medication Instructions Recorded Albuterol Sulfate Inhaler - 2 inh IH Q4H PRN #1 inh 12/08/11 [Ventolin HFA Inhaler -] metFORMIN HCL [Glucophage -] 500 mg PO BID #60 tablet 11/11/14 traZODone HCL [Desyrel -] 50 mg PO HS #30 tablet 12/05/14 Metformin HCl [Glucophage] 1,000 mg PO BID #60 tablet 12/09/14 Clindamycin [Cleocin -] 450 mg PO TID #21 capsule 09/13/17 Active Medications Acetaminophen (Tylenol -) 650 mg PO Q6H PRN PRN Reason: PAIN LEVEL 1-5 Last Admin: 04/19/19 07:16 Dose: 650 mg Albuterol Sulfate (Ventolin 0.083% Nebulizer Soln -) 1 amp NEB Q4H PRN PRN Reason: SHORT OF BREATH/WHEEZING Vancomycin HCl (Vancomycin (Pre-Docked)) 1,000 mg in 250 mls @ 166.667 mls/hr IVPB Q12H [facility]; Protocol Last Admin: 04/20/19 03:47 Dose: 166.667 mls/hr Sodium Chloride (Normal Saline -) 1,000 mls @ 100 mls/hr IV ASDIR [facility] Last Admin: 04/20/19 06:20 Dose: 100 mls/hr Famotidine/Sodium Chloride (Pepcid 20 Mg Premixed Ivpb -) 20 mg in 50 mls @ 100 mls/hr IVPB BID [facility] Last Admin: 04/20/19 10:33 Dose: 100 mls/hr Insulin Aspart (Novolog Vial Sliding Scale -) 1 vial SQ ACHS [facility]; Protocol Last Admin: 04/20/19 12:44 Dose: Not Given Ketorolac Tromethamine (Toradol Injection -) 30 mg IVPUSH Q6H PRN PRN Reason: PAIN LEVEL 6-10 Stop: 04/22/19 17:58 Last Admin: 04/20/19 09:01 Dose: 30 mg Methadone HCl (Dolophine -) 10 mg PO ONCE ONE Stop: 04/21/19 10:01 Methadone HCl (Dolophine -) 5 mg PO ONCE ONE Stop: 04/22/19 06:01 Metoclopramide HCl (Reglan Injection -) 10 mg IVPUSH TIDAC [facility] Last Admin: 04/20/19 12:04 Dose: 10 mg Laboratory Results - last 24 hr 04/17/19 04/17/19 04/19/19 09:50 09:50 17:14 WBC RBC Hgb Hct MCV MCH MCHC RDW Plt Count MPV Absolute Neuts (auto) Neutrophils % Lymphocytes % Monocytes % Eosinophils % Basophils % Nucleated RBC % Sodium Potassium Chloride Carbon Dioxide Anion Gap BUN Creatinine Est GFR (CKD-EPI)AfAm Est GFR (CKD-EPI)NonAf POC Glucometer 139 Random Glucose Calcium Hep A IgM Ab Confirm Negative Hepatitis A Ab Total Negative Hep Bs Antigen Negative Hep Bs Antibody Reactive Hep B Core Total Ab Positive H Hep B Core IgM Ab Negative Hepatitis Be Antibody Positive H Positive H Hepatitis Be Antigen Negative Negative 04/19/19 04/20/19 04/20/19 21:16 06:18 07:48 WBC 6.0 RBC 3.21 L Hgb 9.5 L Hct 28.7 L MCV 89.6 MCH 29.5 MCHC 32.9 RDW 13.0 Plt Count 250 MPV 9.0 Absolute Neuts (auto) 3.5 Neutrophils % 59.1 Lymphocytes % 29.7 D Monocytes % 9.7 Eosinophils % 1.1 Basophils % 0.4 Nucleated RBC % 0 Sodium Potassium Chloride Carbon Dioxide Anion Gap BUN Creatinine Est GFR (CKD-EPI)AfAm Est GFR (CKD-EPI)NonAf POC Glucometer 107 134 Random Glucose Calcium Hep A IgM Ab Confirm Hepatitis A Ab Total Hep Bs Antigen Hep Bs Antibody Hep B Core Total Ab Hep B Core IgM Ab Hepatitis Be Antibody Hepatitis Be Antigen 04/20/19 04/20/19 07:48 11:57 WBC RBC Hgb Hct MCV MCH MCHC RDW Plt Count MPV Absolute Neuts (auto) Neutrophils % Lymphocytes % Monocytes % Eosinophils % Basophils % Nucleated RBC % Sodium 139 Potassium 3.5 Chloride 106 Carbon Dioxide 28 Anion Gap 6 L BUN 9.5 Creatinine 1.3 Est GFR (CKD-EPI)AfAm 56.58 Est GFR (CKD-EPI)NonAf 48.81 POC Glucometer 108 Random Glucose 121 H Calcium 8.2 L Hep A IgM Ab Confirm Hepatitis A Ab Total Hep Bs Antigen Hep Bs Antibody Hep B Core Total Ab Hep B Core IgM Ab Hepatitis Be Antibody Hepatitis Be Antigen Microbiology 04/16/19 19:00 Leg - Right Lower Gram Stain - Final 04/16/19 19:00 Leg - Right Lower Wound Culture - Final Staphylococcus Aureus Staphylococcus Coagulase Neg 04/16/19 18:40 Blood - Peripheral Venous Blood Culture - Preliminary NO GROWTH OBTAINED AFTER 72 HOURS, INCUBATION TO CONTINUE FOR 2 DAYS. 04/16/19 18:14 Blood - Peripheral Venous Blood Culture - Preliminary NO GROWTH OBTAINED AFTER 72 HOURS, INCUBATION TO CONTINUE FOR 2 DAYS. 04/17/19 10:00 Nares - Left Nares MRSA Screen - Final Mr S Aureus 04/17/19 10:00 Nares - Mrsa Screen - Right MRSA Screen - Final NO MRSA ISOLATED 04/16/19 19:00 Urine - Urine Clean Catch Urine Culture - Final NO GROWTH OBTAINED ASSESSMENT AND PLAN: 49 yof with PMHx of IVDU, NIDDM, MRSA infection, multiple wound infections at injection site, last in abdominal wall, comes with right calf swelling/pain/ fevers -Right calf abscess/Cellulitis/eschar, from IVDU s/p I&D/packing 04/17 -polysubstance use with cocaine/heroine/ETOH -Opioid withdrawal -Epigastric burning, GERD vs abx mediated dyspepsia, vs opioid withdrawal -Multiple prior wound infections at injection site, last in abdominal wall -NIDDM Plan: Surgery input noted. wound clean. Dressing changes as directed Await Plastic surgery input Dr. Ching. Will follow up if candidate for wound vac. ID input noted. Wound cx noted. Blood cx neg so far. Zosyn/vancomycin, continue for now. Vanco levels noted. Afebrile, normal WBC. Methadone detox for opioid withdrawal Detox consult. Pepcid/Maalox. 2D echo noted. Pain control tylenol/toradol ISS, hold metformin. Diabetic diet. DVTPPX lovenox Dispo pending clinical impovement. May need SNF based on clinical course and wound care needs. Discussed with patient and social work.
--- NOTE | 2019-04-20 14:59 | PN ---
Physical Exam: SUBJECTIVE: Patient seen and examined. Calmer today compared to yesterday. Still having stomach cramps. COWS 7. No acute events overnight. POD#3 from debridement and I&D. OBJECTIVE: Vital Signs Period Temp Pulse Resp BP Sys/Sweet Pulse Ox Last 24 Hr 97.9 F-98.4 F 56-82 18-18 109-150/57-90 100 GENERAL: The patient is awake, alert, and fully oriented, mild distress. COWS score 7 HEAD: Normal with no signs of trauma. EYES: EOMI, no scleral icterus ENT: dry mucous membranes NECK: Trachea midline, full range of motion, supple. LUNGS: Breath sounds equal, clear to auscultation bilaterally, no wheezes, no crackles, no accessory muscle use. HEART: Regular rate and rhythm, S1, S2 without murmur, rub or gallop. ABDOMEN: soft, nondistended. mild diffuse tenderness to palpation over abd EXTREMITIES: RLE wound approximately 10x9cm, wound clean without purulent drainage, erythema, or foul odor. Dry/peeling surrounding skin NEUROLOGICAL: normal speech, gait not observed. sensation intact throughout PSYCH: agitated, anxious SKIN: Warm, dry, normal turgor Laboratory Results - last 24 hr 04/17/19 04/17/19 04/19/19 09:50 09:50 17:14 WBC RBC Hgb Hct MCV MCH MCHC RDW Plt Count MPV Absolute Neuts (auto) Neutrophils % Lymphocytes % Monocytes % Eosinophils % Basophils % Nucleated RBC % Sodium Potassium Chloride Carbon Dioxide Anion Gap BUN Creatinine Est GFR (CKD-EPI)AfAm Est GFR (CKD-EPI)NonAf POC Glucometer 139 Random Glucose Calcium Hep A IgM Ab Confirm Negative Hepatitis A Ab Total Negative Hep Bs Antigen Negative Hep Bs Antibody Reactive Hep B Core Total Ab Positive H Hep B Core IgM Ab Negative Hepatitis Be Antibody Positive H Positive H Hepatitis Be Antigen Negative Negative 04/19/19 04/20/19 04/20/19 21:16 06:18 07:48 WBC 6.0 RBC 3.21 L Hgb 9.5 L Hct 28.7 L MCV 89.6 MCH 29.5 MCHC 32.9 RDW 13.0 Plt Count 250 MPV 9.0 Absolute Neuts (auto) 3.5 Neutrophils % 59.1 Lymphocytes % 29.7 D Monocytes % 9.7 Eosinophils % 1.1 Basophils % 0.4 Nucleated RBC % 0 Sodium Potassium Chloride Carbon Dioxide Anion Gap BUN Creatinine Est GFR (CKD-EPI)AfAm Est GFR (CKD-EPI)NonAf POC Glucometer 107 134 Random Glucose Calcium Hep A IgM Ab Confirm Hepatitis A Ab Total Hep Bs Antigen Hep Bs Antibody Hep B Core Total Ab Hep B Core IgM Ab Hepatitis Be Antibody Hepatitis Be Antigen 04/20/19 04/20/19 07:48 11:57 WBC RBC Hgb Hct MCV MCH MCHC RDW Plt Count MPV Absolute Neuts (auto) Neutrophils % Lymphocytes % Monocytes % Eosinophils % Basophils % Nucleated RBC % Sodium 139 Potassium 3.5 Chloride 106 Carbon Dioxide 28 Anion Gap 6 L BUN 9.5 Creatinine 1.3 Est GFR (CKD-EPI)AfAm 56.58 Est GFR (CKD-EPI)NonAf 48.81 POC Glucometer 108 Random Glucose 121 H Calcium 8.2 L Hep A IgM Ab Confirm Hepatitis A Ab Total Hep Bs Antigen Hep Bs Antibody Hep B Core Total Ab Hep B Core IgM Ab Hepatitis Be Antibody Hepatitis Be Antigen Active Medications Generic Name Dose Route Start Last Admin Trade Name Freq PRN Reason Stop Dose Admin Acetaminophen 650 mg 04/18/19 09:13 04/19/19 07:16 Tylenol - PO 650 mg Q6H PRN Administration PAIN LEVEL 1-5 Albuterol Sulfate 1 amp 04/17/19 17:31 Ventolin 0.083% Nebulizer Soln - NEB Q4H PRN SHORT OF BREATH/WHEEZING Vancomycin HCl 1,000 mg in 250 mls @ 166.667 mls/hr 04/18/19 04:00 04/20/19 03:47 Vancomycin (Pre-Docked) IVPB 166.667 mls/hr Q12H [facility] Administration Protocol Sodium Chloride 1,000 mls @ 100 mls/hr 04/17/19 17:45 04/20/19 06:20 Normal Saline - IV 100 mls/hr ASDIR [facility] Administration Famotidine/Sodium Chloride 20 mg in 50 mls @ 100 mls/hr 04/19/19 10:30 10:33 Pepcid 20 Mg Premixed Ivpb - IVPB 100 mls/hr BID [facility] Administration Insulin Aspart 1 vial 04/17/19 22:00 04/20/19 12:44 Novolog Vial Sliding Scale - SQ Not Given ACHS [facility] Protocol Ketorolac Tromethamine 30 mg 04/17/19 17:59 04/20/19 09:01 Toradol Injection - IVPUSH 04/22/19 17:58 30 mg Q6H PRN Administration PAIN LEVEL 6-10 Methadone HCl 10 mg 04/21/19 10:00 Dolophine - PO 04/21/19 10:01 ONCE ONE Methadone HCl 5 mg 04/22/19 06:00 Dolophine - PO 04/22/19 06:01 ONCE ONE Metoclopramide HCl 10 mg 04/20/19 11:00 04/20/19 12:04 Reglan Injection - IVPUSH 10 mg TIDAC [facility] Administration ASSESSMENT/PLAN: 49 y/o/f with PMHx of IVDU, IDDM, MRSA (August 2017), and asthma, who presents to the ED with a large abscess on her right calf. POD#3 from debridement and I&D of right calf abscess. #Sepsis 2/2 right leg abscess - blood and urine cultures negative to date - WBC normalized - Continue Vancomycin. - Zosyn discontinued as per ID - Ct of the legs: cellulitis and ulceration without abscess but with potential muscle involvement - IVF - ECHO without evidence of vegetations or other significant pathology - Hx of MRSA. MRSA screen positive in left nare - surgery consulted - POD#3 for debridement and I&D of right calf abscess. - continue with daily damp to dry dressing with with kerlix daily - Plastics consulted - Likely will not close wound due to recent I&D procedure. Recommend when patient is ready for D/C to send out on Silvadine cream BID and wound clinic follow up. Awaiting input on wound vac recommendations - ID consulted, follow recs - Zofran/Pepcid PRN for nausea #Drug withdrawal - Hx of Heroin, cocaine, alcohol use - COWS score 13 -> 7 - Continue Methadone taper - addiction medicine consulted #Lactic Acidosis - likely 2/2 to sepsis - normalized #Abnormal LFTs - active alcohol drinker, IVDU - LFTs normalized, will continue to follow - Hep serology negative for acute infection - HIV test negative #DM - ISS - BGM #Asthma - Nebs Q4hr PRN #Alcohol use disorder - Ativan PRN #FEN - NS @100mls/hr - monitor and replete lytes as needed #DVTPPX - Holding Lovenox, will resume as per surgery #Disposition - POD#3 for debridement and I&D of right calf abscess - Patient open to going to rehab when ready for D/C Visit type - Emergency Visit Emergency Visit: Yes ED Registration Date: 04/16/19 Care time: The patient presented to the Emergency Department on the above date and was hospitalized for further evaluation of their emergent condition. - New Patient This patient is new to me today: No - Critical Care Critical Care patient: No ATTENDING PHYSICIAN STATEMENT I saw and evaluated the patient. I reviewed the resident's note and discussed the case with the resident. I agree with the resident's findings and plan as documented. SUBJECTIVE: OBJECTIVE: ASSESSMENT AND PLAN:
[2019-04-20] MEDS: ENOXAPARIN NA (PORCINE) 40 MG/0.4 ML DISP.SYRIN SQ SCH (17:49)
--- NOTE | 2019-04-20 18:57 | CONS ---
DATE OF CONSULTATION: 04/17/2019 HISTORY OF PRESENT ILLNESS: The patient is a 49-year-old female insulin-dependent diabetic and active IV drug user who is evaluated for soft tissue abscess. She was admitted to the hospital on April 16, 2019 with increasing right lower extremity pain and swelling. She does not give a reliable history. According to the chart, she had been hospitalized at another institution for an abscess of the right lower extremity which was self-inflicted secondary to injection drug use. She is unable to give any additional details. She now presents with worsening right calf pain and swelling. In the emergency room, her temperature was 102.8. A CT scan of the leg was negative for abscess. A culture was obtained and shows gram-negative organisms. She is scheduled to go to the operating room for an incision and drainage. She has a history of MRSA dating back to August of 2017 from a soft tissue wound. PAST MEDICAL HISTORY: Positive for insulin-dependent diabetes mellitus, active IV drug use, asthma. ALLERGIES: No known drug allergies. SOCIAL HISTORY: Positive for polysubstance abuse including alcohol, cocaine and tobacco. She is apparently homeless. LAB DATA: White count on admission is 15, hematocrit 31.5, platelets 214, creatinine 0.6. PHYSICAL EXAMINATION: General: The patient is lethargic and chronically ill-appearing. Vital Signs: Temperature 98.5. T-max 102.8. Blood pressure 94/58, pulse 69, respiratory rate 18 per minute. HEENT: Sclerae anicteric. Heart: Heart sounds S1, S2. No murmur. Lungs: Clear. Abdomen: Soft. Extremities: On examination of the right lower extremity, there is a large area of induration and ulceration present on the lateral aspect of the right calf. No purulent drainage is noted. It is tender to touch. No crepitus or fluctuance. IMPRESSION: 1. Infected ulcer/cellulitis of the right lower extremity. 2. Rule out soft tissue abscess. 3. Insulin-dependent diabetes mellitus. 4. History of injection drug use. PLAN: 1. Await cultures. 2. The patient is going for surgical debridement. Await operative cultures. Obtain specimen for routine C and S, AFP and fungal culture. 3. Empiric antibiotic coverage with vancomycin and Zosyn in this diabetic with a history of MRSA. 4. HIV testing. The patient consents. Thank you for the kind referral. SCOT ZAMORA M.D. [id number]
--- NOTE | 2019-04-20 18:58 | OP ---
DATE OF OPERATION: 04/17/2019 PREOPERATIVE DIAGNOSIS: Soft tissue infection, right lower extremity. POSTOPERATIVE DIAGNOSIS: Soft tissue infection, right lower extremity. PROCEDURE: Debridement, irrigation, and drainage of soft tissue infection of the right lower extremity. SURGEON: Deyvi Croft MD COMPLICATIONS: None. Bleeding was minimal. SPECIMEN: Necrotic soft tissue and skin. The patient tolerated the procedure well. INDICATION FOR PROCEDURE: This is a 49-year-old female IV drug abuse with a history of multiple soft tissue infections and cellulitis who is status post a graft of skin to the area in the right lower extremity. She now presents with a severe infection. She was taken to the operating room for debridement of this area and irrigation. DESCRIPTION OF PROCEDURE: In the operating room, the area just from the peroneal aspect of the below-knee lower extremity was draining purulent material with clear visualization of areas of skin necrosis. After administration of anesthesia, the area was prepped and draped. Debridement was performed by excising all the necrotic tissue with scalpel. The wound was then inspected and probed. Pockets of pus were all drained, and the area was pulse irrigated with 6 L of saline with bacitracin and then sterile dressing was applied. Bleeding was controlled with cautery, and sterile dressing was applied, and Kerlix was used to wrap the leg with an Chris bandage, and the patient was returned to the recovery room awake and alert in sterile conditions. She tolerated procedure well. DEYVI CROFT M.D. [id number] MTDD
[2019-04-20] MEDS ORDERED: INSULIN (NOVOLOG) ASPART 100 UNITS/ML 10ML VIAL ONE (21:15)
[2019-04-21] MEDS: VANCOMYCIN 1 GRAM (PRE-DOCKED) 1,000 MG/250 ML BAG IVPB SCH (04:07)
[2019-04-21] MEDS: INSULIN SLIDING SCALE (NOVOLOG) 1 VIAL SQ SCH ×4 (06:33→21:07)
[2019-04-21] MEDS: METOCLOPRAMIDE HCL INJECTION 10 MG/2 ML VIAL IVPUSH SCH ×3 (06:33→17:19)
[2019-04-21] MEDS: FAMOTIDINE 20 MG/50 ML IVPB 20 MG/50 ML MG IVPB SCH ×2 (09:40→21:07)
[2019-04-21] MEDS: ENOXAPARIN NA (PORCINE) 40 MG/0.4 ML DISP.SYRIN SQ SCH (09:40)
[2019-04-21] MEDS ORDERED: METHADONE HCL 10 MG TABLET PO ONE (10:00)
[2019-04-21] MEDS: SODIUM CHLORIDE 1,000 ML IV SCH ×2 (10:38→22:13)
[2019-04-21] MEDS ORDERED: INSULIN (NOVOLOG) ASPART 100 UNITS/ML 10ML VIAL ONE (10:41)
--- NOTE | 2019-04-21 12:48 | PN ---
Progress Note (short form) - Note Progress Note: asked to f/u RLE abscess- s/p drainage of abscess 04/17 feels well no complaints Vital Signs Period Temp Pulse Resp BP Sys/Sweet Pulse Ox Last 24 Hr 98 F-98.7 F 63-65 18-19 97-130/65-87 98-100 cor-rrr lungs clear abd soft,nt ext multiple scars from prior injections clean granulating shallow wound on RLE, minimal drainage, no erythema CBC, BMP 04/20/19 07:48 04/20/19 07:48 Microbiology 04/16/19 18:40 Blood - Peripheral Venous Blood Culture - Preliminary NO GROWTH OBTAINED AFTER 96 HOURS, INCUBATION TO CONTINUE FOR 1 DAYS. 04/16/19 18:14 Blood - Peripheral Venous Blood Culture - Preliminary NO GROWTH OBTAINED AFTER 96 HOURS, INCUBATION TO CONTINUE FOR 1 DAYS. 04/16/19 19:00 Leg - Right Lower Gram Stain - Final 04/16/19 19:00 Leg - Right Lower Wound Culture - Final Staphylococcus Aureus Staphylococcus Coagulase Neg 04/17/19 10:00 Nares - Left Nares MRSA Screen - Final Mr S Aureus 04/17/19 10:00 Nares - Mrsa Screen - Right MRSA Screen - Final NO MRSA ISOLATED 04/16/19 19:00 Urine - Urine Clean Catch Urine Culture - Final NO GROWTH OBTAINED Current Medications Acetaminophen (Tylenol -) 650 mg PO Q6H PRN PRN Reason: PAIN LEVEL 1-5 Last Admin: 04/19/19 07:16 Dose: 650 mg Albuterol Sulfate (Ventolin 0.083% Nebulizer Soln -) 1 amp NEB Q4H PRN PRN Reason: SHORT OF BREATH/WHEEZING Enoxaparin Sodium (Lovenox -) 40 mg SQ DAILY [facility] Last Admin: 04/21/19 09:40 Dose: 40 mg Vancomycin HCl (Vancomycin (Pre-Docked)) 1,000 mg in 250 mls @ 166.667 mls/hr IVPB Q12H [facility]; Protocol Last Admin: 04/21/19 04:07 Dose: 166.667 mls/hr Sodium Chloride (Normal Saline -) 1,000 mls @ 100 mls/hr IV ASDIR [facility] Last Admin: 04/21/19 10:38 Dose: 100 mls/hr Famotidine/Sodium Chloride (Pepcid 20 Mg Premixed Ivpb -) 20 mg in 50 mls @ 100 mls/hr IVPB BID [facility] Last Admin: 04/21/19 09:40 Dose: 100 mls/hr Insulin Aspart (Novolog Vial Sliding Scale -) 1 vial SQ ACHS [facility]; Protocol Last Admin: 04/21/19 10:52 Dose: Not Given Ketorolac Tromethamine (Toradol Injection -) 30 mg IVPUSH Q6H PRN PRN Reason: PAIN LEVEL 6-10 Stop: 04/22/19 17:58 Last Admin: 04/20/19 09:01 Dose: 30 mg Methadone HCl (Dolophine -) 5 mg PO ONCE ONE Stop: 04/22/19 06:01 Metoclopramide HCl (Reglan Injection -) 10 mg IVPUSH TIDAC [facility] Last Admin: 04/21/19 10:52 Dose: 10 mg a/p wound is clean- d/c vanomcycin-no mrsa in wound can switch to po keflex
[2019-04-21] MEDS: CEPHALEXIN MONOHYDRATE 500 MG CAPSULE (UD) PO SCH ×2 (14:27→21:07)
--- NOTE | 2019-04-21 14:52 | PN ---
Physical Exam: SUBJECTIVE: Patient seen and examined, pleasant, denies any abdominal pain. No complaints. OBJECTIVE: Vital Signs Period Temp Pulse Resp BP Sys/Sweet Pulse Ox Last 24 Hr 98 F-98.7 F 55-64 - 97-130/65-87 98-100 Intake & Output 04/18/19 04/19/19 04/20/19 04/21/19 23:59 23:59 23:59 23:59 Intake Total 2750 767 1470 450 Balance 2750 767 1470 450 GENERAL: sitting in bed, pleasant, no acute distress Neck: soft, supple Chest: CTAb, no rales or wheezing Abdomen:Soft, NT Extremities: right leg wound clean,no active discharge or erythema, exam unchanged Laboratory Results - last 24 hr 04/20/19 04/20/19 04/21/19 17:14 21:23 06:32 POC Glucometer 88 124 126 04/21/19 10:49 POC Glucometer 114 Active Medications Generic Name Dose Route Start Last Admin Trade Name Freq PRN Reason Stop Dose Admin Acetaminophen 650 mg 04/18/19 09:13 04/19/19 07:16 Tylenol - PO 650 mg Q6H PRN Administration PAIN LEVEL 1-5 Albuterol Sulfate 1 amp 04/17/19 17:31 Ventolin 0.083% Nebulizer Soln - NEB Q4H PRN SHORT OF BREATH/WHEEZING Cephalexin HCl 500 mg 04/21/19 14:00 04/21/19 14:27 Keflex - PO 500 mg TID [facility] Administration Enoxaparin Sodium 40 mg 04/20/19 17:45 04/21/19 09:40 Lovenox - SQ 40 mg DAILY [facility] Administration Sodium Chloride 1,000 mls @ 100 mls/hr 04/17/19 17:45 04/21/19 10:38 Normal Saline - IV 100 mls/hr ASDIR [facility] Administration Famotidine/Sodium Chloride 20 mg in 50 mls @ 100 mls/hr 04/19/19 10:30 09:40 Pepcid 20 Mg Premixed Ivpb - IVPB 100 mls/hr BID [facility] Administration Insulin Aspart 1 vial 04/17/19 22:00 04/21/19 10:52 Novolog Vial Sliding Scale - SQ Not Given ACHS [facility] Protocol Ketorolac Tromethamine 30 mg 04/17/19 17:59 04/20/19 09:01 Toradol Injection - IVPUSH 04/22/19 17:58 30 mg Q6H PRN Administration PAIN LEVEL 6-10 Methadone HCl 5 mg 04/22/19 06:00 Dolophine - PO 04/22/19 06:01 ONCE ONE Metoclopramide HCl 10 mg 04/20/19 11:00 04/21/19 10:52 Reglan Injection - IVPUSH 10 mg TIDAC [facility] Administration Microbiology 04/16/19 18:40 Blood - Peripheral Venous Blood Culture - Preliminary NO GROWTH OBTAINED AFTER 96 HOURS, INCUBATION TO CONTINUE FOR 1 DAYS. 04/16/19 18:14 Blood - Peripheral Venous Blood Culture - Preliminary NO GROWTH OBTAINED AFTER 96 HOURS, INCUBATION TO CONTINUE FOR 1 DAYS. 04/16/19 19:00 Leg - Right Lower Gram Stain - Final 04/16/19 19:00 Leg - Right Lower Wound Culture - Final Staphylococcus Aureus Staphylococcus Coagulase Neg 04/17/19 10:00 Nares - Left Nares MRSA Screen - Final Mr S Aureus 04/17/19 10:00 Nares - Mrsa Screen - Right MRSA Screen - Final NO MRSA ISOLATED 04/16/19 19:00 Urine - Urine Clean Catch Urine Culture - Final NO GROWTH OBTAINED ASSESSMENT/PLAN: 49 yof with PMHx of IVDU, NIDDM, MRSA infection, multiple wound infections at injection site, last in abdominal wall, comes with right calf swelling/pain/ fevers -Right calf abscess/Cellulitis/eschar, from IVDU s/p I&D/packing 04/17 -polysubstance use with cocaine/heroine/ETOH -Opioid withdrawal -Epigastric burning, GERD vs abx mediated dyspepsia, vs opioid withdrawal -Multiple prior wound infections at injection site, last in abdominal wall -NIDDM Plan: Surgery input noted. wound clean. Dressing changes as directed ID input noted, abx changed to keflex. Await Plastic surgery input Dr. Ching. Afebrile, normal WBC. Methadone detox for opioid withdrawal Detox consult. Pepcid/Maalox. 2D echo noted. Pain control tylenol/toradol ISS, hold metformin. Diabetic diet. DVTPPX lovenox Dispo dc in 24-48 hours pending plastic surgery input, wound care needs and disposition arrangements. Discussed with patient and nursing. Visit type - Emergency Visit Emergency Visit: Yes ED Registration Date: 04/16/19 Care time: The patient presented to the Emergency Department on the above date and was hospitalized for further evaluation of their emergent condition. - New Patient This patient is new to me today: No - Critical Care Critical Care patient: No - Discharge Referral Referred to [facility] No
[2019-04-21] MEDS: ACETAMINOPHEN 325 MG TABLET (FP) PO PRN (21:00)
[2019-04-22] MEDS: CEPHALEXIN MONOHYDRATE 500 MG CAPSULE (UD) PO SCH ×3 (05:49→21:05)
[2019-04-22] MEDS ORDERED: METHADONE HCL 5 MG TABLET PO ONE (06:00)
[2019-04-22] MEDS: INSULIN SLIDING SCALE (NOVOLOG) 1 VIAL SQ SCH ×3 (06:07→17:15)
[2019-04-22] MEDS: METOCLOPRAMIDE HCL INJECTION 10 MG/2 ML VIAL IVPUSH SCH ×3 (06:07→17:15)
[2019-04-22] MEDS ORDERED: ACETAMINOPHEN 325 MG TABLET (FP) PO PRN (08:06)
--- NOTE | 2019-04-22 08:07 | PN ---
Teaching Attending Note Name of Resident: Andrea Vargas ATTENDING PHYSICIAN STATEMENT I saw and evaluated the patient. I reviewed the resident's note and discussed the case with the resident. I agree with the resident's findings and plan as documented with exceptions below. SUBJECTIVE: Patient seen and examined. no complaints, pleasant. OBJECTIVE: Vital Signs Period Temp Pulse Resp BP Sys/Sweet Pulse Ox Last 24 Hr 98.0 F-100.2 F 55-64 16-19 114-134/71-90 98-98 Intake & Output 04/19/19 04/20/19 04/21/19 04/22/19 23:59 23:59 23:59 23:59 Intake Total 767 1470 2019 1440 Balance 767 1470 2019 1440 General: sitting in bed, no acute distress Neck; Soft, supple Chest: CTAb, no rales or wheezing Abdomen;Soft, NT Extremities: right calf wound, overall clean, minimal yellowish discharge at the edge, no new surrounding erythema or edema Home Medications Medication Instructions Recorded NK [No Known Home Medication] 04/21/19 Active Medications Acetaminophen (Tylenol -) 650 mg PO Q6H PRN PRN Reason: PAIN Albuterol Sulfate (Ventolin 0.083% Nebulizer Soln -) 1 amp NEB Q4H PRN PRN Reason: SHORT OF BREATH/WHEEZING Cephalexin HCl (Keflex -) 500 mg PO TID [facility] Last Admin: 04/22/19 05:49 Dose: 500 mg Enoxaparin Sodium (Lovenox -) 40 mg SQ DAILY [facility] Last Admin: 04/22/19 09:10 Dose: 40 mg Sodium Chloride (Normal Saline -) 1,000 mls @ 100 mls/hr IV ASDIR [facility] Last Admin: 04/22/19 09:09 Dose: 100 mls/hr Famotidine/Sodium Chloride (Pepcid 20 Mg Premixed Ivpb -) 20 mg in 50 mls @ 100 mls/hr IVPB BID [facility] Last Admin: 04/22/19 09:10 Dose: 100 mls/hr Insulin Aspart (Novolog Vial Sliding Scale -) 1 vial SQ BIDAC [facility]; Protocol Metoclopramide HCl (Reglan Injection -) 10 mg IVPUSH TIDAC [facility] Last Admin: 04/22/19 11:54 Dose: 10 mg Silver Sulfadiazine (Silvadene -) 1 applic TP DAILY [facility] Laboratory Results - last 24 hr 04/21/19 04/21/19 04/22/19 16:59 20:47 05:37 POC Glucometer 88 112 73 04/22/19 11:56 POC Glucometer 85 Microbiology 04/16/19 18:40 Blood - Peripheral Venous Blood Culture - Final NO GROWTH AFTER 5 DAYS INCUBATION 04/16/19 18:14 Blood - Peripheral Venous Blood Culture - Final NO GROWTH AFTER 5 DAYS INCUBATION 04/16/19 19:00 Leg - Right Lower Gram Stain - Final 04/16/19 19:00 Leg - Right Lower Wound Culture - Final Staphylococcus Aureus Staphylococcus Coagulase Neg 04/17/19 10:00 Nares - Left Nares MRSA Screen - Final Mr S Aureus 04/17/19 10:00 Nares - Mrsa Screen - Right MRSA Screen - Final NO MRSA ISOLATED 04/16/19 19:00 Urine - Urine Clean Catch Urine Culture - Final NO GROWTH OBTAINED ASSESSMENT AND PLAN: 49 yof with PMHx of IVDU, NIDDM, MRSA infection, multiple wound infections at injection site, last in abdominal wall, comes with right calf swelling/pain/ fevers -Right calf abscess/Cellulitis/eschar, from IVDU s/p I&D/packing 04/17 -polysubstance use with cocaine/heroine/ETOH -Opioid withdrawal -Epigastric burning, GERD vs abx mediated dyspepsia, vs opioid withdrawal -Multiple prior wound infections at injection site, last in abdominal wall -NIDDM Plan: ID input noted, changed to keflex, repeat wound cx sent. Low grade temp, discussed with ID, continue current abx. Patient seen with Dr. Ching, offered skin grafting. Patient declined any surgical intervention stating "bigger wounds have healed on their own, this will heal too". Will continue wound care with silvadene with gauze/wrap. Patient agreable to wound care. Surgery input noted. Methadone detox. [facility]. Pepcid/maalox. dc toradol tylenol prn. resume metformin on dc dispo [facility] home in 24 hours if no concerns. Patient agreable to wound care, Rn to provide teaching
[2019-04-22] MEDS: SODIUM CHLORIDE 1,000 ML IV SCH ×2 (09:09→21:05)
[2019-04-22] MEDS: FAMOTIDINE 20 MG/50 ML IVPB 20 MG/50 ML MG IVPB SCH (09:10)
[2019-04-22] MEDS: ENOXAPARIN NA (PORCINE) 40 MG/0.4 ML DISP.SYRIN SQ SCH (09:10)
--- NOTE | 2019-04-22 11:55 | PN ---
Physical Exam: SUBJECTIVE: Patient seen and examined. No longer complaining of stomach pain. Seen with Dr. Cisneros, plastic surgery, and offered the option of skin graft but refusing because she believes the wound will close up on its own. No acute events overnight. OBJECTIVE: Vital Signs Period Temp Pulse Resp BP Sys/Sweet Pulse Ox Last 24 Hr 98.0 F-100.2 F 55-63 16-19 114-134/71-90 98 GENERAL: The patient is awake, alert, and fully oriented, mild distress HEAD: Normal with no signs of trauma. EYES: EOMI, no scleral icterus ENT: dry mucous membranes NECK: Trachea midline, full range of motion, supple. LUNGS: Breath sounds equal, clear to auscultation bilaterally, no wheezes, no crackles, no accessory muscle use. HEART: Regular rate and rhythm, S1, S2 without murmur, rub or gallop. ABDOMEN: soft, nondistended, nontender EXTREMITIES: RLE wound approximately 10x9cm, clean base without purulent drainage, erythema, active bleeding or foul odor. Dry/peeling surrounding skin NEUROLOGICAL: normal speech, gait not observed PSYCH: agitated, anxious SKIN: Warm, dry, normal turgor Laboratory Results - last 24 hr 04/21/19 04/21/19 04/22/19 16:59 20:47 05:37 POC Glucometer 88 112 73 Active Medications Generic Name Dose Route Start Last Admin Trade Name Freq PRN Reason Stop Dose Admin Acetaminophen 650 mg 04/22/19 08:06 Tylenol - PO Q6H PRN PAIN Albuterol Sulfate 1 amp 04/17/19 17:31 Ventolin 0.083% Nebulizer Soln - NEB Q4H PRN SHORT OF BREATH/WHEEZING Cephalexin HCl 500 mg 04/21/19 14:00 04/22/19 05:49 Keflex - PO 500 mg TID [facility] Administration Enoxaparin Sodium 40 mg 04/20/19 17:45 04/22/19 09:10 Lovenox - SQ 40 mg DAILY [facility] Administration Sodium Chloride 1,000 mls @ 100 mls/hr 04/17/19 17:45 04/22/19 09:09 Normal Saline - IV 100 mls/hr ASDIR [facility] Administration Famotidine/Sodium Chloride 20 mg in 50 mls @ 100 mls/hr 04/19/19 10:30 09:10 Pepcid 20 Mg Premixed Ivpb - IVPB 100 mls/hr BID [facility] Administration Insulin Aspart 1 vial 04/17/19 22:00 04/22/19 06:07 Novolog Vial Sliding Scale - SQ Not Given ACHS [facility] Protocol Metoclopramide HCl 10 mg 04/20/19 11:00 04/22/19 06:07 Reglan Injection - IVPUSH 10 mg TIDAC [facility] Administration Silver Sulfadiazine 1 applic 04/22/19 12:00 Silvadene - TP DAILY [facility] ASSESSMENT/PLAN: 49 y/o/f with PMHx of IVDU, IDDM, MRSA (August 2017), and asthma, who presents to the ED with a large abscess on her right calf. POD#5 from debridement and I&D of right calf abscess. #Sepsis 2/2 right leg abscess - blood and urine cultures negative to date - WBC normalized - Continue Keflex 500mg TID - Zosyn, Vancomycin discontinued as per ID - Ct of the legs: cellulitis and ulceration without abscess but with potential muscle involvement - IVF - ECHO without evidence of vegetations or other significant pathology - Hx of MRSA. MRSA screen positive in left nare - surgery consulted - POD#5 for debridement and I&D of right calf abscess. - continue with daily dressing changes with Silvadene cream - Plastics consulted - Patient refusing skin graft procedure. Daily dressing with silvadene cream recommended. - F/U repeat wound culture - ID consulted, follow recs - Zofran/Pepcid PRN for nausea #Drug withdrawal - Hx of Heroin, cocaine, alcohol use - Methadone taper completed - addiction medicine consulted #Abnormal LFTs - active alcohol drinker, IVDU - LFTs normalized, will continue to follow - Hep serology negative for acute infection - HIV test negative #DM - ISS - BGM #Asthma - Nebs Q4hr PRN #Alcohol use disorder - Ativan PRN #FEN - NS @100mls/hr - monitor and replete lytes as needed #DVTPPX - Holding Lovenox, will resume as per surgery #Disposition - POD#5 for debridement and I&D of right calf abscess - Patient open to going to rehab when ready for D/C Visit type - Emergency Visit Emergency Visit: Yes ED Registration Date: 04/16/19 Care time: The patient presented to the Emergency Department on the above date and was hospitalized for further evaluation of their emergent condition. - New Patient This patient is new to me today: No - Critical Care Critical Care patient: No ATTENDING PHYSICIAN STATEMENT I saw and evaluated the patient. I reviewed the resident's note and discussed the case with the resident. I agree with the resident's findings and plan as documented. SUBJECTIVE: OBJECTIVE: ASSESSMENT AND PLAN:
--- NOTE | 2019-04-22 14:20 | CONS ---
DATE OF CONSULTATION: DATE OF DICTATION: 04/22/2019 REQUESTING PHYSICIAN: Carlos Haque MD REASON FOR CONSULTATION: Open wound, right lower leg. HISTORY OF PRESENT ILLNESS: Patient admitted on April 16, 2019, at [facility], a 49-year-old with history of cocaine abuse, asthma, diabetes mellitus. Patient comes to the hospital with increased swelling, discharge from the right calf. This started 4 days ago. Patient has been injecting drugs into the wound. History of headaches and malaise. Patient was recently also admitted in [place] 2 months ago for another wound on her right calf. Previous also admissions to [facility] for 3 months for abdominal wounds. Negative for back pain, numbness, tingling, or weakness. Positive for previous IV abuse. EXAMINATION: Patient seen in presence of Dr. Haque. On the right lower leg, there is a large wound located on the lateral aspect of her left leg just below the knee. The wound has been debrided previously in the operating room. Most of the necrotic tissue has been removed. The wound at this time has granulation tissue and no odor, minimal erythema. Edges are raised. Circulation to the rest of the leg is intact. Previous scarring is noted. Ability to flex and extend the knee. Some limitation of the knee movement due to stiffness. Ankle motion is present. MICROBIOLOGY: Previous cultures done on the right leg show Staphylococcus aureus and staph coagulase negative. Recent culture done on April 17 from the left nose shows MRSA. Previous wound culture done from the right leg, no MRSA was isolated. In consultation with Dr. Haque, and presence of the resident as well as the patient, discussion was made and patient was given recommendation to undergo skin grafting for this large wound located on the lower leg. Split-thickness skin graft in the operating room could be scheduled and cover the defect before discharge. Patient declined. She mentioned that she had previously had even larger wounds on the same leg, which have healed without any surgery. She is not in favor of any surgery. Risks and benefits were explained. She is in the view that the wound should be able to heal. At this time, no surgical intervention. Wound care to continue. Patient could benefit with addition of topical local antibiotic like Silvadene or Bactroban. This will require daily wound care. Patient can be followed up in the wound clinic. Her lab reports white count, when she was admitted, at 15.1, on the it is 6.0, hemoglobin at time of admission, 11.9, now 9.5, hematocrit was 36.6, now it is 28.7. Absolute neutrophils at time of admission, 11.3, with antibiotic care, 3.5. Chemistry: Her glucometer today, 73; at time of admission was 124. Random glucose is 129, calcium is 8.2, creatinine 1.3, hemoglobin A1c 7.7, lactic acid 1.4, albumin 2.3, total protein 6.8. Sodium 141, potassium 3.4. Patient has been seen by Infectious Disease and has completed the IV antibiotic courses. FINAL DIAGNOSIS: Large open wound on lateral aspect of left leg related to drug abuse. MEDINA NICHOLSON M.D. [id number]
[2019-04-22] MEDS: SILVER SULFADIAZINE 1% TOP CREAM 50 GM JAR TP SCH (14:22)
[2019-04-22] MEDS: METOCLOPRAMIDE HCL 10 MG TABLET (FP) PO SCH (21:05)
[2019-04-22] MEDS: FAMOTIDINE 20 MG TABLET PO SCH (21:05)
[2019-04-23] MEDS: CEPHALEXIN MONOHYDRATE 500 MG CAPSULE (UD) PO SCH ×2 (05:41→14:05)
[2019-04-23] MEDS: METOCLOPRAMIDE HCL 10 MG TABLET (FP) PO SCH ×2 (05:41→14:05)
[2019-04-23] MEDS: INSULIN SLIDING SCALE (NOVOLOG) 1 VIAL SQ SCH (06:16)
[2019-04-23] MEDS: ENOXAPARIN NA (PORCINE) 40 MG/0.4 ML DISP.SYRIN SQ SCH (09:14)
[2019-04-23] MEDS: FAMOTIDINE 20 MG TABLET PO SCH (09:14)
[2019-04-23 09:15] LABS: BASO % 0.5 % (0-2.0); HEMATOCRIT 30.6 % (32.4-45.2); HEMOGLOBIN 9.9 GM/dL (10.7-15.3); LYMPH % 21.5 % (8-40); MCH 29.3 pg (25.7-33.7); MCHC 32.5 g/dl (32.0-36.0); MEAN CELL VOLUME 90.3 fl (80-96); MEAN PLT VOLUME 9.1 fl (7.5-11.1); MONO % 10.7 % (3.8-10.2); NEUT % 66.3 % (42.8-82.8); PLATELET COUNT 290 K/MM3 (134-434); RBC 3.39 M/mm3 (3.60-5.2); RDW 13.4 % (11.6-15.6); WHITE BLOOD COUNT 8.7 K/mm3 (4.0-10.0)
[2019-04-23] MEDS: SILVER SULFADIAZINE 1% TOP CREAM 50 GM JAR TP SCH (09:18)
--- NOTE | 2019-04-23 14:10 | PN ---
Teaching Attending Note Name of Resident: Andrea Vargas ATTENDING PHYSICIAN STATEMENT I saw and evaluated the patient. I reviewed the resident's note and discussed the case with the resident. I agree with the resident's findings and plan as documented with exceptions below. SUBJECTIVE: Patient seen and examined. no complaints, pleasant. OBJECTIVE: Vital Signs Period Temp Pulse Resp BP Sys/Sweet Pulse Ox Last 24 Hr 98.9 F-99.5 F 54-63 16-20 121-139/64-88 94-98 Intake & Output 04/20/19 04/21/19 04/22/19 04/23/19 23:59 23:59 23:59 23:59 Intake Total 1470 2019 3335 1200 Balance 1470 2019 3334 1200 General: sitting in bed, no acute distress Chest: CTAB, no rales or wheezing Abdomen:soft, NT Extremities: right calf wound clean, no new changes Home Medications Medication Instructions Recorded NK [No Known Home Medication] 04/21/19 Active Medications Acetaminophen (Tylenol -) 650 mg PO Q6H PRN PRN Reason: PAIN Last Admin: 04/23/19 09:14 Dose: 650 mg Cephalexin HCl (Keflex -) 500 mg PO TID [facility] Last Admin: 04/23/19 14:05 Dose: 500 mg Enoxaparin Sodium (Lovenox -) 40 mg SQ DAILY [facility] Last Admin: 04/23/19 09:14 Dose: 40 mg Famotidine (Pepcid -) 20 mg PO BID [facility] Last Admin: 04/23/19 09:14 Dose: 20 mg Sodium Chloride (Normal Saline -) 1,000 mls @ 100 mls/hr IV ASDIR [facility] Last Admin: 04/22/19 21:05 Dose: 100 mls/hr Insulin Aspart (Novolog Vial Sliding Scale -) 1 vial SQ BIDAC [facility]; Protocol Last Admin: 04/23/19 06:16 Dose: Not Given Metoclopramide HCl (Reglan -) 10 mg PO TID [facility] Last Admin: 04/23/19 14:05 Dose: 10 mg Silver Sulfadiazine (Silvadene -) 1 applic TP DAILY [facility] Last Admin: 04/23/19 09:18 Dose: 1 applic Laboratory Results - last 24 hr 04/23/19 04/23/19 05:37 08:35 WBC 8.7 RBC 3.39 L Hgb 9.9 L Hct 30.6 L MCV 90.3 MCH 29.3 MCHC 32.5 RDW 13.4 Plt Count 290 MPV 9.1 Absolute Neuts (auto) 5.8 Neutrophils % 66.3 Lymphocytes % 21.5 D Monocytes % 10.7 H Eosinophils % 1.0 Basophils % 0.5 Nucleated RBC % 0 POC Glucometer 94 Microbiology 04/21/19 12:00 Leg - Right Lower Gram Stain - Final 04/21/19 12:00 Leg - Right Lower Wound Culture - Preliminary NO GROWTH OBTAINED AFTER 24 HOURS INCUBATION, REINCUBATED. 04/16/19 18:40 Blood - Peripheral Venous Blood Culture - Final NO GROWTH AFTER 5 DAYS INCUBATION 04/16/19 18:14 Blood - Peripheral Venous Blood Culture - Final NO GROWTH AFTER 5 DAYS INCUBATION 04/16/19 19:00 Leg - Right Lower Gram Stain - Final 04/16/19 19:00 Leg - Right Lower Wound Culture - Final Staphylococcus Aureus Staphylococcus Coagulase Neg 04/17/19 10:00 Nares - Left Nares MRSA Screen - Final Mr S Aureus 04/17/19 10:00 Nares - Mrsa Screen - Right MRSA Screen - Final NO MRSA ISOLATED 04/16/19 19:00 Urine - Urine Clean Catch Urine Culture - Final NO GROWTH OBTAINED ASSESSMENT AND PLAN: 49 yof with PMHx of IVDU, NIDDM, MRSA infection, multiple wound infections at injection site, last in abdominal wall, comes with right calf swelling/pain/ fevers -Right calf abscess/Cellulitis/eschar, from IVDU s/p I&D/packing 04/17 -polysubstance use with cocaine/heroine/ETOH -Opioid withdrawal -Epigastric burning, GERD vs abx mediated dyspepsia, vs opioid withdrawal -Multiple prior wound infections at injection site, last in abdominal wall -NIDDM Plan: ID input noted, wound clean. Patient declined skin grafting or additional surgical intervention. repeat wound cx neg. Discuss with ID about keflex duration. Wound dressing with silvadene cream. Patient reports ability to do on dc Teaching provided by nursing. finished acute methadone detox Plan for dc to [facility] rehab vs home +/- PO abx today. Discussed with patient.
--- NOTE | 2019-04-23 14:22 | DS ---
Physical Exam: SUBJECTIVE: Patient seen and examined. States that she is feeling better. Would like to go home. No acute events overnight. OBJECTIVE: Vital Signs Period Temp Pulse Resp BP Sys/Sweet Pulse Ox Last 24 Hr 98.9 F-99.3 F 58-63 16-20 121-139/64-88 94-98 PHYSICAL EXAM GENERAL: The patient is awake, alert, and fully oriented, mild distress HEAD: Normal with no signs of trauma. EYES: EOMI, no scleral icterus ENT: dry mucous membranes NECK: Trachea midline, full range of motion, supple. LUNGS: Breath sounds equal, clear to auscultation bilaterally, no wheezes, no crackles, no accessory muscle use. HEART: Regular rate and rhythm, S1, S2 without murmur, rub or gallop. ABDOMEN: soft, nondistended, nontender EXTREMITIES: RLE wound approximately 10x9cm, clean base without purulent drainage, erythema, active bleeding or foul odor. Dry/peeling surrounding skin NEUROLOGICAL: normal speech, gait not observed PSYCH: appropriate mood and affect SKIN: Warm, dry, normal turgor LABS Laboratory Results - last 24 hr 04/23/19 04/23/19 05:37 08:35 WBC 8.7 RBC 3.39 L Hgb 9.9 L Hct 30.6 L MCV 90.3 MCH 29.3 MCHC 32.5 RDW 13.4 Plt Count 290 MPV 9.1 Absolute Neuts (auto) 5.8 Neutrophils % 66.3 Lymphocytes % 21.5 D Monocytes % 10.7 H Eosinophils % 1.0 Basophils % 0.5 Nucleated RBC % 0 POC Glucometer 94 HOSPITAL COURSE: Date of Admission:04/16/19 Date of Discharge: 04/23/19 49 y/o/f with PMHx of IVDU, IDDM, MRSA (August 2017), and asthma, who presents to the ED with a large abscess on her right calf. POD#6 from debridement and I&D of right calf abscess. Patient came in with an infected abscess of her right lower extremity, CT of the lower extremity was performed which showed subcutanous air with potential muscle involvement.. Seen by surgery who immediately performed a debridement and I&D. Wound care performed with daily dressing changes. Patient was on started on Vancomycin and Zosyn antibiotics and was eventually switched to Keflex. Patient was seen by plastic surgery and given the option for a skin graft which the patient refused. While admitted patient completed a methadone taper for drug withdrawal. Wound care instructions were explained to the patient. Asked patient if she would like to go to [facility] but patient preferred to go home. Discharged patient with antibiotics, metformin, and wound care supplies. Minutes to complete discharge: 36 Discharge Summary Problems reviewed: Yes Reason For Visit: URINARY TRACT INFECTION, COCAINE ABUSE, ABSCESS, Current Active Problems Abscess (Acute) Sepsis (Acute) UTI (urinary tract infection) (Acute) Condition: Stable - Instructions Diet, Activity, Other Instructions: You presented to the hospital with an abscess in your right leg. You had a CT scan of your leg performed which showed air under the skin concerning for a severe infection. You were seen by Dr. Block, surgery, who performed a debridement with Incision and drainage. Daily wound care was completed and you were shown by your nurse how to continue taking care of your wound. You were started on antibiotics while in the hospital with improvement of the infection cause by your leg wound. You were seen by a plastic surgeon and were given the option for a skin graft procedure to help close your wound sooner, however you declined this option. Please continue taking care of your wound daily as shown to you by your nurse. While in the hospital you completed a Methadone taper to help with drug withdrawal. Medication Changes: 1. Continue taking Keflex once daily for 5 days. 2. You are being started on Metformin 500mg once daily for diabetes. Please follow up with your primary care provider for further management of your diabetes. 3. You are being prescribed silvadene cream to apply on your leg wound as directed below. Follow up with the following physicians: 1. Please follow up with your primary care provider for further care of your leg wound. If you do not have a primary care provider a referral has been included for [facility]. 2. If you are interested in continuing rehabilitation this the phone number for [facility] facility: . Please feel free to reach out the [facility] for further guidance on drug rehabilitation. Activity and Diet 1. You are being discharged home. Please make sure to follow the wound care instructions below and to keep pressure of your right leg to allow for proper healing of your wound. 2. Please continue to monitor your diet as you need to intake less sugar and drink plenty of fluids. 3. Please continue to change your dressings daily as shown to you by your nurse. It is important that you take proper care of your wound as there is a high risk for infection if it is not properly taken care of. If you notice increased swelling, pain, redness, purulent drainage, a foul odor or bleeding from you wound please return to the emergency room immediately. 4. Wound care instructions: Apply silvadene cream to wound. Cover wound with telfa dressing and then a gauze pad. Then wrap wound with kerlix dressing. You may wrap the dressing with a coban wrap to keep the dressing in place. Keep wound clean and dry. Do not get wound wet when showering. Continue all your other medications as prescribed Please return to the ER if you have any signs or symptoms of chest pain, shortness of breath, uncontrollable fever, chills, nausea, vomiting, numbness, tingling, or weakness in any part of your body, changes in vision, or slurred speech. Please return to the ER if symptoms persist, worsen, or new symptoms arise. [place] [facility] [place] [facility] Group] Disposition: HOME - Home Medications Comprehensive Discharge Medication List: Ambulatory Orders NK [No Known Home Medication] 04/21/19 This patient is new to me today: No Emergency Visit: Yes ED Registration Date: 04/16/19 Care time: The patient presented to the Emergency Department on the above date and was hospitalized for further evaluation of their emergent condition. Critical Care patient: No - Discharge Referral Referred to [facility] No ATTENDING PHYSICIAN STATEMENT I saw and evaluated the patient. I reviewed the resident's note and discussed the case with the resident. I agree with the resident's findings and plan as documented. SUBJECTIVE: OBJECTIVE: ASSESSMENT AND PLAN:
[2019-04-23 14:43] VITALS: BP 109/64; PULSE 59; TEMP 98.5
== END 2019-04-23 15:45 | disposition home or self-care (01) | DRG 720 ==
LOC: JER 16:45 → JERBED 18:51 → J6S 04-17 05:30
PROVIDERS: ADMIT Internal Medicine; ATTEND Hospitalist
PROC: 0HDKXZZ Extraction of Right Lower Leg Skin, External Approach (ICD-10-PCS; 2019-04-17)
PROC: 0HBHXZZ Excision of Right Upper Leg Skin, External Approach (ICD-10-PCS; principal; 2019-04-17 15:30)
DX: A41.9 Sepsis, unspecified organism (principal); L03.115 Cellulitis of right lower limb; F14.10 Cocaine abuse, uncomplicated; D72.829 Elevated white blood cell count, unspecified; F10.10 Alcohol abuse, uncomplicated; N39.0 Urinary tract infection, site not specified; K21.9 Gastro-esophageal reflux disease without esophagitis; L97.919 Non-pressure chronic ulcer of unspecified part of right lower leg with unspecified severity; F11.20 Opioid dependence, uncomplicated; E87.2 Acidosis; E11.622 Type 2 diabetes mellitus with other skin ulcer
CPT/HCPCS: 36415; 71045-TC-FY; 73590-TC-RT-FY; 73701-TC-RT; 76705-TC; 80048; 80053; 81003; 82803; 82962; 83036; 83605; 83735; 84100; 84484; 85025; 85027; 85610; 85730; 86704; 86706; 86707; 86708; 86709; 87040; 87070; 87077; 87081; 87086; 87186; 87205; 87340; 87350; 87389; 88304-TC; 90732; 93005; 93010; 93306-TC; 94760; 97116-GP; 97161-GP; 99285-25; G0008; G0009; G0480; J0131; J7030; Q2036; Q9967

== ENCOUNTER 2022-01-21 15:42 | Inpatient (IN) | payer OTHER ==
[2022-01-21 19:01] VITALS: BMI 31.8
[2022-01-21] MEDS ORDERED: MELATONIN 5 MG TABLETS PO PRN (20:13)
[2022-01-21] MEDS ORDERED: LOPERAMIDE HCL 2 MG CAPSULE PO PRN (20:13)
[2022-01-21] MEDS ORDERED: IBUPROFEN 400 MG TABLET (FP) PO PRN (20:13)
[2022-01-21] MEDS ORDERED: hydrOXYzine PAMOATE 25 MG CAPSULE (FP) PO PRN (20:13)
[2022-01-21] MEDS ORDERED: DICYCLOMINE HCL 10 MG CAPSULE PO PRN (20:13)
[2022-01-21] MEDS ORDERED: NALOXONE HCL (KLOXXADO) 8 MG SPRAY NS PRN (20:13)
[2022-01-21] MEDS ORDERED: ACETAMINOPHEN 325 MG TABLET (FP) PO PRN ×2 (20:13)
[2022-01-21] MEDS ORDERED: P-EPHED 60MG/TRIPROLIDI 2.5MG TABLET PO PRN (20:13)
[2022-01-21] MEDS ORDERED: guaiFENesin 200 MG/10 ML 10 ML UNIT-DOSE CUPS PO PRN (20:13)
[2022-01-21] MEDS ORDERED: BENZOCAINE/MENTHOL (CHLORASEPTIC ) LOZENGE MM PRN (20:13)
[2022-01-21] MEDS ORDERED: MAG HYDROX/AL HYDROX/SIMETH 30 ML UNIT-DOSE CUP PO PRN (20:13)
[2022-01-21] MEDS ORDERED: BISMUTH SUBSALICYLATE 524 MG/30 ML PO PRN (20:13)
[2022-01-21] MEDS ORDERED: IBUPROFEN 600 MG TABLET (FP) PO PRN (20:13)
[2022-01-21] MEDS ORDERED: ONDANSETRON *ODT* 4 MG TABLET SL PRN (20:13)
[2022-01-21] MEDS ORDERED: MAGNESIUM HYDROX 2400MG/30ML ORAL SUSPENSION 30 ML CUP PO PRN (20:13)
[2022-01-21] MEDS ORDERED: METHOCARBAMOL 500 MG TABLET PO PRN (20:13)
[2022-01-21] MEDS ORDERED: MAGNESIUM CITRATE 300 ML BOTTLE PO PRN (20:13)
[2022-01-21] MEDS ORDERED: THIAMINE HCL 100 MG TABLET (FP) PO SCH (22:00)
[2022-01-22] MEDS ORDERED: metFORMIN HCL 500 MG TABLET (FP) PO SCH (08:58)
[2022-01-22] MEDS ORDERED: PRENATAL VITAMINS W/ FOLIC ACID TABLET (FP) PO SCH (10:00)
[2022-01-22 12:30] LABS: HEMATOCRIT 38.1 % (32.4-45.2); HEMOGLOBIN 12.4 GM/dL (10.7-15.3); MCH 30.4 pg (25.7-33.7); MCHC 32.5 g/dl (32.0-36.0); MEAN CELL VOLUME 93.4 fl (80-96); MEAN PLT VOLUME 11.1 fl (7.5-11.1); PLATELET COUNT 142 10^3/uL (134-434); RBC 4.08 M/mm3 (3.60-5.2); WHITE BLOOD COUNT 4.1 K/mm3 (4.0-10.0)
[2022-01-22 12:35] VITALS: BP 125/75; PULSE 68; RESP 16; TEMP 96.6
[2022-01-22 12:42] LABS: CHLORIDE 97 mmol/L (98-107); SODIUM 134 mmol/L (136-145)
[2022-01-22 12:53] LABS: ALBUMIN 2.9 g/dl (3.4-5.0); ANION GAP 7 MMOL/L (8-16); BLOOD UREA NITROGEN 11.5 mg/dL (7-18); CALCIUM 8.6 mg/dL (8.5-10.1); CO2 31 mmol/L (21-32)
[2022-01-22 12:56] LABS: CREATININE 0.7 mg/dL (0.55-1.3); SGOT/AST 53 U/L (15-37); SGPT/ALT 49 U/L (13-61)
[2022-01-22 12:57] LABS: BILIRUBIN,TOTAL 0.8 mg/dL (0.2-1); TOT PROT 7.5 g/dl (6.4-8.2)
[2022-01-22 12:58] LABS: ALK PHOS 120 U/L (45-117)
[2022-01-22 13:25] LABS: GLUCOSE,RANDOM 485 mg/dL (74-106)
[2022-01-22] MEDS ORDERED: INSULIN SLIDING SCALE (NOVOLOG) 1 VIAL SQ SCH (16:30)
[2022-01-22 18:20] LABS: HIV INTERPRETATION NEGATIVE (NEGATIVE)
== END 2022-01-22 12:26 | disposition home or self-care (01) | DRG 774 ==
LOC: YASAS 15:42 → UNDOADMIN 21:07 → Y3N 21:07
PROVIDERS: ADMIT Allergy & Immunology; ATTEND Surgery
PROC: HZ2ZZZZ Detoxification Services for Substance Abuse Treatment (ICD-10-PCS; principal; 2022-01-21)
DX: F14.20 Cocaine dependence, uncomplicated (principal); F10.10 Alcohol abuse, uncomplicated; J45.909 Unspecified asthma, uncomplicated; E11.9 Type 2 diabetes mellitus without complications; Z79.84 Long term (current) use of oral hypoglycemic drugs; Z28.310 Unvaccinated for COVID-19; Z28.9 Immunization not carried out for unspecified reason
CPT/HCPCS: 36415; 80053; 81025; 82962; 85027; 86780; 87389; 93005; 93010; C9803-CS; U0003; U0005